=== PATIENT | female | born 1945 | race Caucasian/White ===

== ENCOUNTER 2017-03-17 01:27 | Inpatient (IN) | payer MEDICARE, OTHER ==
[~2017-03-17] VITALS: Ht 149.9 cm; Wt 49.0 kg
[2017-03-17] MEDS ORDERED: diphenhydrAMINE HCL 25 MG CAPSULE PO PRN (07:45)
[2017-03-17] MEDS ORDERED: MAG HYDROX/AL HYDROX/SIMETH 30 ML ORAL.SUSP PO PRN (09:15)
[2017-03-17] MEDS ORDERED: METHYL SALICYLATE/MENTHOL TOPICAL OINTMENT 29GM TUBE. TP PRN (09:15)
--- NOTE | 2017-03-17 11:35 | EKG ---
[address] [address] Test Date: 2017-03-17 Test Time: 11:30:34 Pat Name: EUGENIE OCHOA Department: Room: [address] [place] [address] Gender: F Specimen Boss: : 1945 Requested By: AMARJIT RICH Order Number: [id number] Reading MD: Hugh Mccoy Measurements Intervals [place] Rate: 77 P: 59 [place]: 156 QRS: -20 QRSD: 78 T: 59 QT: 404 QTc: 459 Interpretive Statements SINUS RHYTHM Electronically Signed On 03-27-2017 10:20:33 CDT by Hugh Mccoy
--- NOTE | 2017-03-17 11:37 | PDOC ---
Exam Sourav Demential Exam: Sourav Note: Please also refer to the separate dictated note~for this date of service dictated separately.~Patient seen individually. Discussed the patient with Nursing staff reviewed the chart.~Reviewed interim history and current functioning. Reviewed vital signs,~Labs/ Radiology~and current medications noted below. Continue current treatment with the changes noted in the dictated addendum note Assessment: I&O Intake and Output 03/18/17 07:00 Intake Total 0 ml Balance 0 ml Intake Oral 0 ml Labs: Laboratory Tests Test 03/17/17 09:22 Magnesium Level 1.7 mg/dL (1.8-2.4) L Current Medications: Meds: Current Medications Olanzapine (ZyPREXA ZYDIS) 2.5 mg PRN Q2HR PRN PO PSYCHOSIS Last administered on 03/17/17t 07:58; Start 03/17/17 at 07:45 Diphenhydramine HCl (Benadryl) 50 mg PRN Q6HRS PRN PO ANXIETY/AGITATION; Start 03/17/17 at 07:45 Acetaminophen (Tylenol) 650 mg PRN Q6HRS PRN PO PAIN / TEMP; Start 03/17/17 at 09:15 Multi-Ingredient Ointment (Analgesic [place]) 1 gayle PRN QID PRN TP MUSCLE PAIN; Start 03/17/17 at 09:15 Al Hydroxide/Mg Hydroxide (Mylanta Plus Xs) 15 ml PRN AFTMEALHC PRN PO DYSPEPSIA; Start 03/17/17 at 09:15 Magnesium Hydroxide (Milk Of Magnesia) 2,400 mg PRN QHS PRN PO CONSTIPATION; Start 03/17/17 at 09:15 Diagnosis: Problems: (1) Anxiety disorder (2) Dementia in Alzheimer's disease with delusions (3) Dementia in Alzheimer's disease with depression (4) Dementia, vascular, with delusions (5) Dementia, vascular, with depression (6) Impulse control disorder AAMRJIT RICH MD Mar 17, 2017 11:37
[2017-03-17] MEDS ORDERED: CYAN10005 PO (13:20)
[2017-03-17] MEDS ORDERED: QUET25TA5 PO (13:20)
[2017-03-17] MEDS ORDERED: ESTR1PAT10 TP (13:20)
[2017-03-17] MEDS ORDERED: ACYC-63 PO (13:20)
[2017-03-17] MEDS ORDERED: CA C1TAB63 PO (13:20)
[2017-03-17] MEDS ORDERED: POLY17PO5 PO (13:20)
[2017-03-17] MEDS ORDERED: FOLI1TAB16 PO (13:20)
[2017-03-17] MEDS ORDERED: ATOR40TA PO (13:20)
[2017-03-17] MEDS ORDERED: BRIM5DRO2 OU (13:20)
[2017-03-17] MEDS ORDERED: CYCL1DRO EACHEYE (13:20)
[2017-03-17] MEDS ORDERED: LEVO50TA PO (13:20)
[2017-03-17] MEDS ORDERED: ALEN70TA5 PO (13:20)
[2017-03-17] MEDS ORDERED: LATA2.5D2 EACHEYE (13:20)
[2017-03-17] MEDS ORDERED: BUPR300T3 PO (13:20)
[2017-03-17] MEDS ORDERED: CA C1TAB67 PO (13:20)
[2017-03-17] MEDS ORDERED: MECL12.52 PO (13:20)
[2017-03-17] MEDS ORDERED: MEMA10TA PO (13:20)
[2017-03-17] MEDS ORDERED: POLYETHYLENE GLYCOL 3350 17 GM PACKET. PO PRN (14:30)
[2017-03-17] MEDS ORDERED: ACYCLOVIR 200 MG CAPSULE PO PRN (14:30)
[2017-03-17] MEDS ORDERED: QUEtiapine 25 MG TABLET. PO PRN (14:30)
[2017-03-17] MEDS ORDERED: MECLIZINE 12.5 MG TABLET. PO PRN (14:30)
[2017-03-17 16:21] VITALS: BP 129/71
[2017-03-17] MEDS: CALCIUM CARB/VIT D3 500/200 TABLET PO SCH (16:35)
--- NOTE | 2017-03-17 16:44 | RAD ---
Bilateral hips 2 views each with AP pelvis 03/17/2017 HISTORY: Pain after falling. Views of both hips show normal bone density without apparent fracture or dislocation. AP view of the pelvis shows no fracture or dislocation. Joint spaces appear well-maintained for age. IMPRESSION: No evidence of acute abnormality. Electronically signed by: Micah Thomas Jr., MD (03/17/2017 4:41 PM) [facility] [place]
[2017-03-17 16:56] LABS: THYROID STIM HORMONE (TSH) 2.79 uIU/mL (0.358-3.740)
[2017-03-17 18:07] LABS: HEMOGLOBIN A1C 4.7 % (4.8-5.6); T3 TOTAL 94 ng/dL (71-180); THYROXINE 7.6 ug/dL (4.5-12.0)
[2017-03-17] MEDS: LATANOPROST 0.005% OPHTH SOLUTION 2.5ML BOTTLE. OU SCH (19:53)
[2017-03-17] MEDS: ATORVASTATIN CALCIUM 20 MG TABLET PO SCH (19:53)
[2017-03-17] MEDS: BRIMONIDINE 0.2% OPHTH SOLUTION 5ML BOTTLE. OU SCH (19:53)
[2017-03-17] MEDS: cycloSPORINE 0.05% OPTH 1 DROP DROPERETTE OU SCH (19:53)
[2017-03-17] MEDS: TIMOLOL 0.5% OPHTH SOLUTION 5ML BOTTLE. OU SCH (19:53)
[2017-03-17] MEDS: MEMANTINE 10 MG TABLET. PO SCH (19:53)
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
--- NOTE | 2017-03-17 21:59 | PDOC ---
Exam Sourav Demential Exam: Sourav Note: Please also refer to the separate dictated note~for this date of service dictated separately.~Patient seen individually. Discussed the patient with Nursing staff reviewed the chart.~Reviewed interim history and current functioning. Reviewed vital signs,~Labs/ Radiology~and current medications noted below. Continue current treatment with the changes noted in the dictated addendum note Assessment: Vital Signs: Vital Signs Date Time Temp Pulse Resp B/P (MAP) Pulse Ox O2 Delivery O2 Flow Rate FiO2 03/17/17 16:21 97.8 101 18 129/71 (90) 96 I&O Intake and Output 03/18/17 07:00 Intake Total 240 ml Balance 240 ml Intake Oral 240 ml Labs: Laboratory Tests Test 03/17/17 09:22 Hemoglobin A1c 4.7 % (4.8-5.6) L Magnesium Level 1.7 mg/dL (1.8-2.4) L Iron Level 52 ug/dL (50-170) Total Iron Binding Capacity 259 ug/dL (250-450) Iron Saturation 20 % (15-34) Triglycerides Level 104 mg/dL (0-150) Cholesterol Level 135 mg/dL (0-200) LDL Cholesterol, Calculated 49 mg/dL (0-100) VLDL Cholesterol, Calculated 20 mg/dL (0-40) Non-HDL Cholesterol Calculated 69 mg/dL (0-129) HDL Cholesterol 66 mg/dL (40-60) H Cholesterol/HDL Ratio 2.0 25-Hydroxy Vitamin D Total Pending Thyroid Stimulating Hormone (TSH) 2.790 uIU/mL (0.358-3.740) Thyroxine (T4) 7.6 ug/dL (4.5-12.0) Total Triiodothyronine (TT3) 94 ng/dL (71-180) RPR Titer Additional Testing Pending Current Medications: Meds: Current Medications Olanzapine (ZyPREXA ZYDIS) 2.5 mg PRN Q2HR PRN PO PSYCHOSIS Last administered on 03/17/17t 16:51; Start 03/17/17 at 07:45 Diphenhydramine HCl (Benadryl) 50 mg PRN Q6HRS PRN PO ANXIETY/AGITATION; Start 03/17/17 at 07:45; Stop 03/17/17 at 18:21; Status DC Acetaminophen (Tylenol) 650 mg PRN Q6HRS PRN PO PAIN / TEMP; Start 03/17/17 at 09:15 Multi-Ingredient Ointment (Analgesic [place]) 1 gayle PRN QID PRN TP MUSCLE PAIN; Start 03/17/17 at 09:15 Al Hydroxide/Mg Hydroxide (Mylanta Plus Xs) 15 ml PRN AFTMEALHC PRN PO DYSPEPSIA; Start 03/17/17 at 09:15 Magnesium Hydroxide (Milk Of Magnesia) 2,400 mg PRN QHS PRN PO CONSTIPATION; Start 03/17/17 at 09:15 Influenza Virus Vaccine Quadrival (Fluarix Quad [id number] Syringe) 0.5 ml ONCE ONCE VAX IM ; Start 03/18/17 at 09:00; Stop 03/18/17 at 09:01 Acyclovir (Zovirax) 200 mg PRN BID PRN PO blisters; Start 03/17/17 at 14:30 Alendronate Sodium (Fosamax) 70 mg WEEKLY PO ; Start 03/24/17 at 09:00 Cyanocobalamin (Vitamin B-12) 1,000 mcg DAILY PO ; Start 03/18/17 at 09:00 Cyclosporine (Restasis) 1 drop BID OU Last administered on 03/17/17 19:53; Start 03/17/17 at 21:00 Folic Acid (Folic Acid) 1 mg DAILY PO ; Start 03/18/17 at 09:00 Latanoprost (Xalatan) 1 drop QHS OU Last administered on 03/17/17 19:53; Start 03/17/17 at 21:00 Levothyroxine Sodium (Synthroid) 50 mcg DAILY06 PO ; Start 03/18/17 at 06:00 Meclizine HCl (Antivert) 12.5 mg PRN TID PRN PO DIZZINESS; Start 03/17/17 at 14:30 Polyethylene Glycol (miraLAX) 17 gm PRN DAILY PRN PO CONSTIPATION; Start 03/17 at 14:30 Atorvastatin Calcium (Lipitor) 40 mg QHS PO Last administered on 03/17/17 19: 53; Start 03/17/17 at 21:00 Brimonidine Tartrate (Alphagan) 1 drop BID OU Last administered on 03/17/17 19:53; Start 03/17/17 at 21:00 Non-Formulary Medication 1 each DAILY PO ; Start 03/18/17 at 09:00; Stop 03/18 at 09:00; Status DC Calcium/Vitamin D (Oscal D 500mg/ 200uts) 1 tab BIDWMEALS PO ; Start 03/17/17 at 17:00 Non-Formulary Medication 1 patch TWICE WEEKLY TP ; Start 03/17/17 at 14:30; Status UNV Bupropion HCl (Wellbutrin Xl) 300 mg DAILY PO ; Start 03/18/17 at 09:00 Memantine (Namenda) 10 mg BID PO Last administered on 03/17/17t 19:53; Start 03/17/17 at 21:00 Quetiapine Fumarate (SEROquel) 12.5 mg PRN DAILY PRN PO ANXIETY / AGITATION; Start 03/17/17 at 14:30 Timolol Maleate (Timoptic 0.5% Ophth) 1 drop BID OU Last administered on t 19:53; Start 03/17/17 at 21:00 Active Scripts Active Reported Seroquel (Quetiapine Fumarate) 25 Mg Tablet 0.5 Tab PO DAILY PRN Miralax (Polyethylene Glycol 3350) 17 Gm Powd.pack 1 Packet PO DAILY PRN Namenda (Memantine Hcl) 10 Mg Tablet 1 Tab PO BID Meclizine Hcl 12.5 Mg Tablet 1 Tab PO TID PRN Synthroid (Levothyroxine Sodium) 50 Mcg Tablet 1 Tab PO DAILY06 Xalatan (Latanoprost) 2.5 Ml Drops 1 Drop EACHEYE QHS Folic Acid 1 Mg Tablet 1 Tab PO DAILY Vivelle-Dot (Estradiol) 1 Each Patch.tdsw 1 Patch TP TWICE WEEKLY Restasis (Cyclosporine) 1 Each Droperette 1 Drop EACHEYE BID Vitamin B-12 (Cyanocobalamin (Vitamin B-12)) 1,000 Mcg Tablet 1 Tab PO DAILY Viactiv Soft Chew Tablet (Ca Carbonate/Vitamin D3/Vit K) 1 Each Tab.chew 1 Each PO DAILY Caltrate+D3 Plus Mineral Minis (Ca Carb/D3/Mag Ox/Skein Straightener/Aaron/Zn) 1 Each Tablet 1 Each PO DAILY Wellbutrin Xl (Bupropion Hcl) 300 Mg Tab.er.24h 1 Tab PO DAILY Combigan Eye Drops (Brimonidine Tartrate/Timolol) 5 Ml Drops 1 Drop OU BID Lipitor (Atorvastatin Calcium) 40 Mg Tablet 1 Tab PO DAILY Alendronate Sodium 70 Mg Tablet 1 Tab PO WEEKLY Acyclovir 200 Mg Capsule 1 Cap PO BID PRN Diagnosis: Problems: (1) Anxiety disorder (2) Impulse control disorder (3) Dementia, vascular, with depression (4) Dementia, vascular, with delusions (5) Dementia in Alzheimer's disease with depression (6) Dementia in Alzheimer's disease with delusions AMARJIT RICH MD Mar 17, 2017 21:59
[2017-03-18] MEDS: LEVOTHYROXINE 50 MCG TABLET PO SCH (05:55)
[2017-03-18 06:05] VITALS: BP 101/70
[2017-03-18] MEDS: CALCIUM CARB/VIT D3 500/200 TABLET PO SCH ×2 (08:00→17:00)
[2017-03-18] MEDS: TIMOLOL 0.5% OPHTH SOLUTION 5ML BOTTLE. OU SCH ×2 (09:00→19:32)
[2017-03-18] MEDS: BRIMONIDINE 0.2% OPHTH SOLUTION 5ML BOTTLE. OU SCH ×2 (09:00→19:32)
[2017-03-18] MEDS: cycloSPORINE 0.05% OPTH 1 DROP DROPERETTE OU SCH ×2 (09:00→19:32)
[2017-03-18] MEDS: FOLIC ACID 1 MG TABLET PO SCH (09:00)
[2017-03-18] MEDS: CYANOCOBALAMIN (VITAMIN B-12) 1,000 MCG TABLET. PO SCH (09:00)
[2017-03-18] MEDS ORDERED: [UNRECOGNIZED DRUG - OTHER] PO SCH (09:00)
[2017-03-18] MEDS ORDERED: FLU VACC QS2017-18 (36MOS+)/PF 0.5 ML SYRINGE. VAX IM ONE (09:00)
[2017-03-18] MEDS: MEMANTINE 10 MG TABLET. PO SCH ×3 (11:50→19:32)
[2017-03-18] MEDS: buPROPion XL 300 MG TAB.ER.24H. PO SCH ×2 (11:50→16:53)
[2017-03-18 16:10] VITALS: BP 118/69
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
[2017-03-18] MEDS: ATORVASTATIN CALCIUM 20 MG TABLET PO SCH (19:31)
[2017-03-18] MEDS: LATANOPROST 0.005% OPHTH SOLUTION 2.5ML BOTTLE. OU SCH (19:32)
[2017-03-19] MEDS: LEVOTHYROXINE 50 MCG TABLET PO SCH (05:47)
[2017-03-19 06:09] VITALS: BP 152/106
[2017-03-19 06:15] VITALS: BP 120/71
[2017-03-19] MEDS: CALCIUM CARB/VIT D3 500/200 TABLET PO SCH ×3 (08:00→17:10)
[2017-03-19] MEDS: cycloSPORINE 0.05% OPTH 1 DROP DROPERETTE OU SCH ×2 (08:02→20:03)
[2017-03-19] MEDS: buPROPion XL 300 MG TAB.ER.24H. PO SCH (08:03)
[2017-03-19] MEDS: MEMANTINE 10 MG TABLET. PO SCH ×2 (08:03→20:03)
[2017-03-19] MEDS: CYANOCOBALAMIN (VITAMIN B-12) 1,000 MCG TABLET. PO SCH (08:03)
[2017-03-19] MEDS: FOLIC ACID 1 MG TABLET PO SCH (08:03)
[2017-03-19] MEDS: TIMOLOL 0.5% OPHTH SOLUTION 5ML BOTTLE. OU SCH ×2 (08:04→20:06)
[2017-03-19] MEDS: BRIMONIDINE 0.2% OPHTH SOLUTION 5ML BOTTLE. OU SCH ×2 (08:04→20:06)
[2017-03-19 16:13] VITALS: BP 136/88
[2017-03-19] MEDS: ATORVASTATIN CALCIUM 20 MG TABLET PO SCH (20:03)
[2017-03-19] MEDS: DIVALPROEX 125 MG CAP.SPRINK PO SCH (20:04)
[2017-03-19] MEDS: LATANOPROST 0.005% OPHTH SOLUTION 2.5ML BOTTLE. OU SCH (20:06)
--- NOTE | 2017-03-20 02:08 | PN ---
DATE: 03/19/2017 SUBJECTIVE: The patient was seen today, met with the staff, chart reviewed, and covering for Dr. So. Staff reports increased behavioral problems, exit-seeking behaviors, kicking doors . The patient also admits to worrying about everything, raising thoughts. The patient is also hyperactive and restless. OBSERVATION: VITAL SIGNS: Temperature 97.3, blood pressure 152/106, pulse 91, respirations 18, O2 sat 96%. Slept about 7 hours last night. Staff reports no falls. Her appetite fair. MEDICATIONS: The patient's current medications include Wellbutrin 150 mg daily, Depakote 125 mg b.i.d., Namenda 10 mg b.i.d., Seroquel 12.5 mg p.r.n., also olanzapine 2.5 mg q.2 hours p.r.n. The patient currently not having any other physical complaints. ASSESSMENT: AXIS I: 1. Major neurocognitive disorder, most likely Alzheimer's and vascular with depression and delusions and behavioral disturbances. 2. Anxiety disorder. PLAN: The patient's Wellbutrin was decreased from 300 to 150 mg daily. NOAH COUCH MD DR: BOB/deidra JOB#: [id number] / [id number]
[2017-03-20] MEDS: LEVOTHYROXINE 50 MCG TABLET PO SCH (06:28)
[2017-03-20 06:37] VITALS: BP 118/64
[2017-03-20 08:00] LABS: BASO # 0.1 x10^3/uL (0.0-0.2); BASO % 0 % (0-3); EOS % 0 % (0-3); HEMATOCRIT 42.5 % (36.0-47.0); HEMOGLOBIN 14.1 g/dL (12.0-15.5); LYMPH # 0.6 x10^3/uL (1.0-4.8); LYMPH % 4 % (24-48); MEAN CORPUSCULAR HEMOGLOBIN 30 pg (25-35); MEAN CORPUSCULAR HGB CONC 33 g/dL (31-37); MEAN CORPUSCULAR VOLUME 91 fL (79-100); MONO # 0.9 x10^3/uL (0.0-1.1); MONO % 6 % (0-9); NEUT # 13.3 x10^3uL (1.8-7.7); NEUT % 89 % (31-73); PLATELET COUNT 195 x10^3/uL (140-400); RED BLOOD COUNT 4.67 x10^6/uL (3.50-5.40); RED CELL DISTRIBUTION WIDTH 14.3 % (11.5-14.5); WHITE BLOOD COUNT 14.9 x10^3/uL (4.0-11.0)
[2017-03-20] MEDS: CALCIUM CARB/VIT D3 500/200 TABLET PO SCH ×2 (08:50→16:54)
[2017-03-20] MEDS: cycloSPORINE 0.05% OPTH 1 DROP DROPERETTE OU SCH ×2 (11:30→19:27)
[2017-03-20] MEDS: FOLIC ACID 1 MG TABLET PO SCH (11:30)
[2017-03-20] MEDS: CYANOCOBALAMIN (VITAMIN B-12) 1,000 MCG TABLET. PO SCH (11:30)
[2017-03-20] MEDS: DIVALPROEX 125 MG CAP.SPRINK PO SCH ×2 (11:30→19:28)
[2017-03-20] MEDS: MEMANTINE 10 MG TABLET. PO SCH ×2 (11:30→19:28)
[2017-03-20] MEDS: TIMOLOL 0.5% OPHTH SOLUTION 5ML BOTTLE. OU SCH ×2 (11:32→19:27)
[2017-03-20] MEDS: BRIMONIDINE 0.2% OPHTH SOLUTION 5ML BOTTLE. OU SCH ×2 (11:32→19:27)
[2017-03-20] MEDS: buPROPion XL 150 MG TAB.ER.24H PO SCH (11:32)
[2017-03-20] MEDS ORDERED: VIVELLE DOT TP SCH (15:00)
[2017-03-20 15:31] VITALS: BP 98/63
[2017-03-20] MEDS: LATANOPROST 0.005% OPHTH SOLUTION 2.5ML BOTTLE. OU SCH (19:27)
[2017-03-20] MEDS: ATORVASTATIN CALCIUM 20 MG TABLET PO SCH (19:28)
--- NOTE | 2017-03-21 01:51 | PN ---
DATE: 03/20/2017 SUBJECTIVE: The patient was seen today, met with the staff, chart reviewed. The patient continues to have problems, mood swings, angry outbursts. The patient also delusional, having visual hallucination seeing children. The patient is being combative with the staff before. The patient also hyperactive, restless, pacing. OBJECTIVE: VITAL SIGNS: Temperature 97.9, blood pressure 118/64, pulse 74, respirations 18, O2 sat 99%. Slept about 4 hours last night. The patient's medications reviewed. The patient currently on Wellbutrin 150 mg daily, Depakote Sprinkles 125 mg b.i.d., Namenda 10 mg b.i.d., Seroquel 12.5 mg p.r.n. daily, also Zyprexa Zydis 2.5 mg p.r.n. q. 2 hours. The patient did not have any falls since she has been here. The patient apparently has shown some improvement. Staff thinks she is able to recognize her and able to recall few things from the past. The patient apparently slept about maybe having a concussion when she had a fall. ASSESSMENT: 1. Major neurocognitive disorder, most likely Alzheimer's and vascular with depression and delusions and behavioral disturbances. 2. Anxiety disorder, unspecified. PLAN: To continue with the treatment. NOAH COUCH MD DR: BOB/deidra JOB#: [id number] / [id number]
[2017-03-21] MEDS: LEVOTHYROXINE 50 MCG TABLET PO SCH (06:04)
[2017-03-21 06:06] VITALS: BP 108/66
[2017-03-21 07:02] LABS: HEMATOCRIT 40.3 % (36.0-47.0); HEMOGLOBIN 13.6 g/dL (12.0-15.5); RED BLOOD COUNT 4.47 x10^6/uL (3.50-5.40); RED CELL DISTRIBUTION WIDTH 14.2 % (11.5-14.5); WHITE BLOOD COUNT 11.9 x10^3/uL (4.0-11.0)
[2017-03-21 07:28] LABS: ALBUMIN 3.4 g/dL (3.4-5.0); ALBUMIN/GLOBULIN RATIO 1.1 (1.0-1.7); C REACTIVE PROTEIN 65.9 mg/L (0-3.3); CREATININE 1.1 mg/dL (0.6-1.0); GFR 48.8; TOTAL BILIRUBIN 0.8 mg/dL (0.2-1.0); TOTAL PROTEIN 6.4 g/dL (6.4-8.2)
[2017-03-21 07:33] LABS: POTASSIUM 2.9 mmol/L (3.5-5.1)
[2017-03-21] MEDS ORDERED: POTASSIUM CHLORIDE 20 MEQ TABLET.ER. PO ONE ×3 (08:15→10:00)
[2017-03-21] MEDS: cycloSPORINE 0.05% OPTH 1 DROP DROPERETTE OU SCH ×2 (09:16→19:10)
[2017-03-21] MEDS: CALCIUM CARB/VIT D3 500/200 TABLET PO SCH ×2 (09:17→16:35)
[2017-03-21] MEDS: FOLIC ACID 1 MG TABLET PO SCH (09:17)
[2017-03-21] MEDS: DIVALPROEX 125 MG CAP.SPRINK PO SCH ×2 (09:17→19:11)
[2017-03-21] MEDS: buPROPion XL 150 MG TAB.ER.24H PO SCH (09:17)
[2017-03-21] MEDS: MEMANTINE 10 MG TABLET. PO SCH ×2 (09:17→19:11)
[2017-03-21] MEDS: CYANOCOBALAMIN (VITAMIN B-12) 1,000 MCG TABLET. PO SCH (09:17)
[2017-03-21] MEDS: BRIMONIDINE 0.2% OPHTH SOLUTION 5ML BOTTLE. OU SCH ×2 (09:18→19:10)
[2017-03-21] MEDS: TIMOLOL 0.5% OPHTH SOLUTION 5ML BOTTLE. OU SCH ×2 (09:18→19:10)
[2017-03-21] MEDS: LATANOPROST 0.005% OPHTH SOLUTION 2.5ML BOTTLE. OU SCH ×2 (09:18→19:10)
--- NOTE | 2017-03-21 12:07 | RAD ---
Chest, 2 views, 03/21/2017: History: Leukocytosis A left-sided transvenous pacemaker is in place with 2 leads extending into the right heart. The heart size and pulmonary vascularity are normal. No pulmonary infiltrates are seen. There is no evidence of pleural fluid. Minimal spurring is present in the spine. IMPRESSION: No acute cardiopulmonary abnormality is detected.
[2017-03-21 16:15] VITALS: BP 127/84
[2017-03-21] MEDS: ATORVASTATIN CALCIUM 20 MG TABLET PO SCH (19:11)
[2017-03-21] MEDS: POTASSIUM CHLORIDE 20 MEQ TABLET.ER. PO SCH (21:12)
[2017-03-22 00:44] LABS: BACTERIA,URINE FEW /HPF (0-FEW); BILIRUBIN,URINE NEG (NEG); CLARITY,URINE CLOUDY; COLOR,URINE YELLOW; GLUCOSE,URINE NEG (NEG); NITRITE,URINE NEG (NEG); RBC,URINE 0 /HPF (0-2); SQUAMOUS EPITHELIAL CELL,UR OCC /LPF; UROBILINOGEN,URINE 0.2 mg/dL (0.2 mg/dL); WBC,URINE RARE /HPF (0-4)
[2017-03-22 00:45] LABS: AMORPHOUS SEDIMENT,UR PRESENT /HPF
--- NOTE | 2017-03-22 04:02 | PN ---
DATE: 03/21/2017 SUBJECTIVE: The patient was seen today, met with the staff, chart reviewed. She continues to be anxious with periods of agitation. The patient has not shown any major behavior problems. The patient is still difficult to redirect at times. The patient did not exhibit any combative behaviors. OBSERVATION: VITAL SIGNS: Temperature 97.6, blood pressure 108/66, pulse 75, respirations 14, O2 sat 100%. Slept about 7 hours last night. Her appetite improved. MEDICATIONS: The patient's current medications include bupropion 150 mg daily, Depakote 125 mg b.i.d., Namenda 10 mg b.i.d., Seroquel 12.5 mg daily p.r.n. Also, olanzapine 2.5 mg q 2 hours p.r.n. The patient is not having any side effects to the medications. ASSESSMENT: 1. Major neurocognitive disorder, most likely Alzheimer's and vascular with depression and delusions and behavioral disturbances. 2. Anxiety disorder, unspecified. PLAN: Continue with the treatment. Plan for discharge on 03/23/2017 if she continues to show improvement and she will be going to [facility]. NOAH COUCH MD DR: BOB/deidra JOB#: [id number] / [id number]
[2017-03-22] MEDS: LEVOTHYROXINE 50 MCG TABLET PO SCH (05:19)
[2017-03-22 05:58] VITALS: BP 145/85
[2017-03-22] MEDS: FOLIC ACID 1 MG TABLET PO SCH (07:20)
[2017-03-22] MEDS: DIVALPROEX 125 MG CAP.SPRINK PO SCH (07:20)
[2017-03-22] MEDS: buPROPion XL 150 MG TAB.ER.24H PO SCH (07:20)
[2017-03-22] MEDS: CALCIUM CARB/VIT D3 500/200 TABLET PO SCH ×2 (07:21→16:16)
[2017-03-22] MEDS: MEMANTINE 10 MG TABLET. PO SCH ×2 (07:21→19:17)
[2017-03-22] MEDS: POTASSIUM CHLORIDE 20 MEQ TABLET.ER. PO SCH ×3 (07:21→19:17)
[2017-03-22] MEDS: CYANOCOBALAMIN (VITAMIN B-12) 1,000 MCG TABLET. PO SCH (07:21)
[2017-03-22] MEDS: BRIMONIDINE 0.2% OPHTH SOLUTION 5ML BOTTLE. OU SCH ×2 (07:21→19:22)
[2017-03-22] MEDS: TIMOLOL 0.5% OPHTH SOLUTION 5ML BOTTLE. OU SCH ×2 (07:22→19:21)
[2017-03-22] MEDS: cycloSPORINE 0.05% OPTH 1 DROP DROPERETTE OU SCH ×2 (07:24→19:23)
[2017-03-22 09:53] LABS: VAL ACID 61 mcg/mL (50-100)
[2017-03-22 15:34] VITALS: BP 120/71
[2017-03-22 15:51] LABS: ALBUMIN 3.7 g/dL (3.4-5.0); ALBUMIN/GLOBULIN RATIO 1.1 (1.0-1.7); CREATININE 1.1 mg/dL (0.6-1.0); GFR 48.8; TOTAL BILIRUBIN 0.7 mg/dL (0.2-1.0); TOTAL PROTEIN 7.1 g/dL (6.4-8.2)
[2017-03-22] MEDS: ATORVASTATIN CALCIUM 20 MG TABLET PO SCH (19:16)
[2017-03-22] MEDS: LATANOPROST 0.005% OPHTH SOLUTION 2.5ML BOTTLE. OU SCH (19:24)
[2017-03-22] MEDS ORDERED: DIVALPROEX 125 MG CAP.SPRINK PO SCH (21:00)
[2017-03-23] MEDS: LEVOTHYROXINE 50 MCG TABLET PO SCH (05:20)
[2017-03-23 06:08] VITALS: BP 113/73
[2017-03-23 06:49] LABS: VAL ACID 64 mcg/mL (50-100)
[2017-03-23] MEDS: buPROPion XL 150 MG TAB.ER.24H PO SCH (07:50)
[2017-03-23] MEDS: MEMANTINE 10 MG TABLET. PO SCH ×2 (07:50→19:24)
[2017-03-23] MEDS: CALCIUM CARB/VIT D3 500/200 TABLET PO SCH ×2 (07:50→17:00)
[2017-03-23] MEDS: POTASSIUM CHLORIDE 20 MEQ TABLET.ER. PO SCH ×3 (07:50→19:24)
[2017-03-23] MEDS: CYANOCOBALAMIN (VITAMIN B-12) 1,000 MCG TABLET. PO SCH (07:51)
[2017-03-23] MEDS: FOLIC ACID 1 MG TABLET PO SCH (07:51)
[2017-03-23] MEDS: TIMOLOL 0.5% OPHTH SOLUTION 5ML BOTTLE. OU SCH ×2 (07:52→19:25)
[2017-03-23] MEDS: BRIMONIDINE 0.2% OPHTH SOLUTION 5ML BOTTLE. OU SCH ×2 (07:53→19:25)
[2017-03-23] MEDS: cycloSPORINE 0.05% OPTH 1 DROP DROPERETTE OU SCH ×2 (07:54→19:25)
--- NOTE | 2017-03-23 08:20 | PN ---
DATE: 03/22/2017 SUBJECTIVE: Discussed the patient's diagnosis, treatment behaviors and discharge plans in the treatment review conference. The patient continues to show increased agitation, exit seeking behaviors, kicking doors, and also hallucinating at times. Also discussed with the family on the phone with regard to the patient's progress and plans. OBJECTIVE: VITAL SIGNS: Temperature 97.8, blood pressure 144/82, pulse 61, respirations 16, O2 sat 100%. The patient slept about 7 hours last night. CURRENT MEDICATIONS: The patient's current medications include bupropion 150 mg daily, Depakote 125 mg b.i.d., Namenda 10 mg b.i.d., Seroquel 12.5 mg daily p.r.n. She is also on olanzapine 2.5 mg q. 2 hours p.r.n. The patient denies of any side effects to the medications. ASSESSMENT: 1. Major neurocognitive disorder, mostly likely Alzheimer's and vascular with the depression and delusions and behavioral disturbances. 2. Anxiety disorder, unspecified. PLAN: Discussed the medications with the family and they are comfortable. The patient is staying on the medications and also Depakote increased to 125 mg in the morning and 250 at night. The patient will be also on Zyprexa 5 mg at noon and continue on the p.r.n. Zyprexa. The patient had no falls. To continue with the treatment. As stated above, the patient will be on Zyprexa 5 mg at noon and the Depakote was increased. NOAH COUCH MD DR: BOB/deidra JOB#: [id number] / [id number]
[2017-03-23] MEDS ORDERED: OLANZapine 5 MG TABLET PO SCH (09:00)
[2017-03-23] MEDS ORDERED: DIVALPROEX 125 MG CAP.SPRINK PO SCH (09:00)
[2017-03-23] MEDS: OLANZapine 5 MG TABLET PO SCH (13:17)
[2017-03-23 16:36] VITALS: BP 104/64
[2017-03-23] MEDS: ATORVASTATIN CALCIUM 20 MG TABLET PO SCH (19:24)
[2017-03-23] MEDS: LATANOPROST 0.005% OPHTH SOLUTION 2.5ML BOTTLE. OU SCH (19:25)
[2017-03-23] MEDS: DIVALPROEX 125 MG CAP.SPRINK PO SCH (19:31)
[2017-03-23] MEDS: ACETAMINOPHEN 325 MG TABLET PO PRN (21:12)
[2017-03-24 05:59] VITALS: BP 107/69
[2017-03-24] MEDS ORDERED: ALENDRONATE SODIUM 35 MG TABLET PO SCH (07:00)
[2017-03-24] MEDS: LEVOTHYROXINE 50 MCG TABLET PO SCH (08:59)
[2017-03-24] MEDS: CALCIUM CARB/VIT D3 500/200 TABLET PO SCH ×2 (09:00→15:36)
[2017-03-24] MEDS: DIVALPROEX 125 MG CAP.SPRINK PO SCH ×2 (09:00→19:13)
[2017-03-24] MEDS: FOLIC ACID 1 MG TABLET PO SCH (09:00)
[2017-03-24] MEDS ORDERED: ALENDRONATE SODIUM 70 MG TABLET PO SCH (09:00)
[2017-03-24] MEDS: buPROPion XL 150 MG TAB.ER.24H PO SCH (09:01)
[2017-03-24] MEDS: CYANOCOBALAMIN (VITAMIN B-12) 1,000 MCG TABLET. PO SCH (09:01)
[2017-03-24] MEDS: POTASSIUM CHLORIDE 20 MEQ TABLET.ER. PO SCH ×3 (09:01→19:13)
[2017-03-24] MEDS: MEMANTINE 10 MG TABLET. PO SCH ×2 (09:01→19:13)
[2017-03-24] MEDS: BRIMONIDINE 0.2% OPHTH SOLUTION 5ML BOTTLE. OU SCH ×2 (09:04→19:15)
[2017-03-24] MEDS: TIMOLOL 0.5% OPHTH SOLUTION 5ML BOTTLE. OU SCH ×2 (09:04→19:15)
[2017-03-24] MEDS: cycloSPORINE 0.05% OPTH 1 DROP DROPERETTE OU SCH ×2 (10:12→19:12)
--- NOTE | 2017-03-24 11:31 | PN ---
DATE: 03/23/2017 SUBJECTIVE: The patient was seen today, met with the staff, chart reviewed. The patient continues to pace constantly, increased agitation, gets aggressive sometimes. The patient also talking to herself. The patient reports the patient may be hallucinating. The patient did not have any falls. VITAL SIGNS: Stable. The patient's appetite is fair, sleep average. MEDICATIONS: The patient's current medications include Depakote 250 mg b.i.d., olanzapine 5 mg daily, bupropion 150 mg daily, Namenda 10 mg b.i.d. The patient is also on Seroquel p.r.n. The patient is not having any physical complaints. ASSESSMENT: 1. Major neurocognitive disorder, most likely Alzheimer's and vascular with depression and delusions and behavioral disturbances. 2. Anxiety disorder, unspecified. The patient's Depakote was increased to 250 mg b.i.d. p.o. Continue with the treatment. NOAH COUCH MD DR: BOB/deidra JOB#: [id number] / [id number]
[2017-03-24] MEDS: OLANZapine 5 MG TABLET PO SCH (12:00)
[2017-03-24 15:55] VITALS: BP 98/67
[2017-03-24] MEDS: ATORVASTATIN CALCIUM 20 MG TABLET PO SCH (19:13)
[2017-03-24] MEDS: LATANOPROST 0.005% OPHTH SOLUTION 2.5ML BOTTLE. OU SCH (19:15)
--- NOTE | 2017-03-25 02:41 | PN ---
DATE: 03/24/2017 SUBJECTIVE: The patient was seen today, met with the staff, chart reviewed. The patient's behavior remains the same, continues to be delusional, paranoid, sometimes difficult to redirect. OBSERVATION: VITAL SIGNS: Temperature 97.3, blood pressure 107/69, pulse 68, respirations 14, O2 sat 99%. Slept about 7 hours last night. The patient's appetite improved. The patient is not having any physical complaints. MEDICATIONS: The patient's current medications include Depakote 125 mg daily and 250 at night, and olanzapine 5 mg daily, bupropion 150 mg daily, and Namenda 10 mg daily. The patient is not having any side effects. No major physical complaints. ASSESSMENT: 1. Major neurocognitive disorder, most likely Alzheimer's and vascular with depression and delusions with behavioral disturbances. 2. Anxiety disorder, unspecified. PLAN: The patient's Depakote currently on 250 mg b.i.d. p.o. Zyprexa was increased to 7.5 mg daily, continue with the treatment. NOAH COUCH MD DR: BOB/deidra JOB#: [id number] / [id number]
[2017-03-25] MEDS: LEVOTHYROXINE 50 MCG TABLET PO SCH (05:41)
[2017-03-25 06:01] VITALS: BP 116/77
[2017-03-25] MEDS: POTASSIUM CHLORIDE 20 MEQ TABLET.ER. PO SCH ×3 (09:57→19:16)
[2017-03-25] MEDS: MEMANTINE 10 MG TABLET. PO SCH ×2 (09:57→19:16)
[2017-03-25] MEDS: buPROPion XL 150 MG TAB.ER.24H PO SCH (09:57)
[2017-03-25] MEDS: FOLIC ACID 1 MG TABLET PO SCH (09:57)
[2017-03-25] MEDS: CALCIUM CARB/VIT D3 500/200 TABLET PO SCH ×2 (09:57→16:12)
[2017-03-25] MEDS: CYANOCOBALAMIN (VITAMIN B-12) 1,000 MCG TABLET. PO SCH (09:57)
[2017-03-25] MEDS: DIVALPROEX 125 MG CAP.SPRINK PO SCH ×2 (09:57→19:16)
[2017-03-25] MEDS: TIMOLOL 0.5% OPHTH SOLUTION 5ML BOTTLE. OU SCH ×2 (09:58→19:19)
[2017-03-25] MEDS: BRIMONIDINE 0.2% OPHTH SOLUTION 5ML BOTTLE. OU SCH ×2 (09:58→19:19)
[2017-03-25] MEDS: cycloSPORINE 0.05% OPTH 1 DROP DROPERETTE OU SCH ×2 (09:58→19:17)
[2017-03-25] MEDS: OLANZapine 5 MG TABLET PO SCH (11:33)
[2017-03-25 11:45] VITALS: BP 113/71
[2017-03-25 15:52] VITALS: BP 113/71
[2017-03-25] MEDS: MAGNESIUM HYDROXIDE 2,400 MG/30 ML ORAL.SUSP. PO PRN (16:12)
[2017-03-25 16:48] VITALS: BP 138/97
[2017-03-25] MEDS: ATORVASTATIN CALCIUM 20 MG TABLET PO SCH (19:16)
[2017-03-25] MEDS: LATANOPROST 0.005% OPHTH SOLUTION 2.5ML BOTTLE. OU SCH (19:19)
[2017-03-25] MEDS: ACETAMINOPHEN 325 MG TABLET PO PRN (19:22)
--- NOTE | 2017-03-26 04:53 | PN ---
DATE: 03/25/2017 SUBJECTIVE: The patient was seen today, met with the staff, and chart reviewed. The patient is still somewhat is delusional and paranoid, confused, gets agitated easily. OBSERVATIONS: VITAL SIGNS: Temperature 97.1, blood pressure 116/77, pulse 60, respirations 18, O2 sat 99%. Slept about 8 hours last night. CURRENT MEDICATIONS: Include Depakote 250 mg b.i.d., olanzapine 5 mg daily, bupropion 150 mg daily, Namenda 10 mg b.i.d., and Seroquel 12.5 mg daily p.r.n. The patient is also on Zyprexa 7.5 mg daily. The patient is not having any side effects to the medications. No major physical complaints. ASSESSMENT: 1. Major Neurocognitive disorder, most likely Alzheimer's and vascular with depression, delusions and behavioral disturbances. 2. Anxiety disorder, unspecified. PLAN: To continue with the treatment. NOAH COUCH MD DR: BOB/deidra JOB#: [id number] / [id number]
[2017-03-26] MEDS: LEVOTHYROXINE 50 MCG TABLET PO SCH (05:25)
[2017-03-26 06:27] VITALS: BP 108/73
[2017-03-26] MEDS: cycloSPORINE 0.05% OPTH 1 DROP DROPERETTE OU SCH ×2 (07:50→19:29)
[2017-03-26] MEDS: FOLIC ACID 1 MG TABLET PO SCH (07:50)
[2017-03-26] MEDS: CALCIUM CARB/VIT D3 500/200 TABLET PO SCH ×2 (07:50→17:32)
[2017-03-26] MEDS: CYANOCOBALAMIN (VITAMIN B-12) 1,000 MCG TABLET. PO SCH (07:50)
[2017-03-26] MEDS: MEMANTINE 10 MG TABLET. PO SCH ×2 (07:50→19:29)
[2017-03-26] MEDS: buPROPion XL 150 MG TAB.ER.24H PO SCH (07:50)
[2017-03-26] MEDS: POTASSIUM CHLORIDE 20 MEQ TABLET.ER. PO SCH ×3 (07:50→19:30)
[2017-03-26] MEDS: DIVALPROEX 125 MG CAP.SPRINK PO SCH ×2 (07:51→19:30)
[2017-03-26] MEDS: BRIMONIDINE 0.2% OPHTH SOLUTION 5ML BOTTLE. OU SCH ×2 (07:51→19:29)
[2017-03-26] MEDS: TIMOLOL 0.5% OPHTH SOLUTION 5ML BOTTLE. OU SCH ×2 (07:51→19:29)
[2017-03-26 08:32] LABS: BASO # 0.1 x10^3/uL (0.0-0.2); BASO % 1 % (0-3); EOS # 0.3 x10^3/uL (0.0-0.7); EOS % 3 % (0-3); HEMATOCRIT 41.4 % (36.0-47.0); HEMOGLOBIN 13.9 g/dL (12.0-15.5); LYMPH # 0.9 x10^3/uL (1.0-4.8); LYMPH % 9 % (24-48); MEAN CORPUSCULAR HEMOGLOBIN 30 pg (25-35); MEAN CORPUSCULAR HGB CONC 34 g/dL (31-37); MEAN CORPUSCULAR VOLUME 91 fL (79-100); MONO # 0.8 x10^3/uL (0.0-1.1); MONO % 8 % (0-9); NEUT % 79 % (31-73); PLATELET COUNT 229 x10^3/uL (140-400); RED BLOOD COUNT 4.58 x10^6/uL (3.50-5.40); RED CELL DISTRIBUTION WIDTH 13.8 % (11.5-14.5); WHITE BLOOD COUNT 10.1 x10^3/uL (4.0-11.0)
[2017-03-26 08:33] LABS: MAGNESIUM 2.3 mg/dL (1.8-2.4)
[2017-03-26 08:35] LABS: ALBUMIN 3.3 g/dL (3.4-5.0); ALBUMIN/GLOBULIN RATIO 1.1 (1.0-1.7); CALCIUM 9.4 mg/dL (8.5-10.1); GFR 54.5; POTASSIUM 4.6 mmol/L (3.5-5.1); TOTAL BILIRUBIN 0.5 mg/dL (0.2-1.0); TOTAL PROTEIN 6.3 g/dL (6.4-8.2)
[2017-03-26 08:36] LABS: VAL ACID 83 mcg/mL (50-100)
[2017-03-26] MEDS: OLANZapine 5 MG TABLET PO SCH (13:28)
[2017-03-26 16:05] VITALS: BP 109/83
[2017-03-26] MEDS: LATANOPROST 0.005% OPHTH SOLUTION 2.5ML BOTTLE. OU SCH (19:29)
[2017-03-26] MEDS: ATORVASTATIN CALCIUM 20 MG TABLET PO SCH (19:30)
--- NOTE | 2017-03-26 20:46 | PDOC ---
Exam Sourav Demential Exam: Sourav Note: Please also refer to the separate dictated note~for this date of service dictated separately.~Patient seen individually. Discussed the patient with Nursing staff reviewed the chart.~Reviewed interim history and current functioning. Reviewed vital signs,~Labs/ Radiology~and current medications noted below. Continue current treatment with the changes noted in the dictated addendum note Assessment: Vital Signs: Vital Signs Date Time Temp Pulse Resp B/P (MAP) Pulse Ox O2 Delivery O2 Flow Rate FiO2 03/26/17 16:05 97.4 97 18 109/83 (92) 95 03/26/17 06:27 Room Air I&O Intake and Output 03/27/17 07:00 Intake Total 50 ml Balance 50 ml Intake Oral 50 ml Labs: Laboratory Tests Test 03/26/17 07:56 White Blood Count 10.1 x10^3/uL (4.0-11.0) Red Blood Count 4.58 x10^6/uL (3.50-5.40) Hemoglobin 13.9 g/dL (12.0-15.5) Hematocrit 41.4 % (36.0-47.0) Mean Corpuscular Volume 91 fL (79-100) Mean Corpuscular Hemoglobin 30 pg (25-35) Mean Corpuscular Hemoglobin Concent 34 g/dL (31-37) Red Cell Distribution Width 13.8 % (11.5-14.5) Platelet Count 229 x10^3/uL (140-400) Neutrophils (%) (Auto) 79 % (31-73) H Lymphocytes (%) (Auto) 9 % (24-48) L Monocytes (%) (Auto) 8 % (0-9) Eosinophils (%) (Auto) 3 % (0-3) Basophils (%) (Auto) 1 % (0-3) Neutrophils # (Auto) 8.0 x10^3uL (1.8-7.7) H Lymphocytes # (Auto) 0.9 x10^3/uL (1.0-4.8) L Monocytes # (Auto) 0.8 x10^3/uL (0.0-1.1) Eosinophils # (Auto) 0.3 x10^3/uL (0.0-0.7) Basophils # (Auto) 0.1 x10^3/uL (0.0-0.2) Sodium Level 146 mmol/L (136-145) H Potassium Level 4.6 mmol/L (3.5-5.1) Chloride Level 111 mmol/L (98-107) H Carbon Dioxide Level 28 mmol/L (21-32) Anion Gap 7 (6-14) Blood Urea Nitrogen 15 mg/dL (7-20) Creatinine 1.0 mg/dL (0.6-1.0) Estimated GFR (Cockcroft-Gault) 54.5 BUN/Creatinine Ratio 15 (6-20) Glucose Level 87 mg/dL (70-99) Calcium Level 9.4 mg/dL (8.5-10.1) Magnesium Level 2.3 mg/dL (1.8-2.4) Total Bilirubin 0.5 mg/dL (0.2-1.0) Aspartate Amino Transferase (AST) 16 U/L (15-37) Alanine Aminotransferase (ALT) 20 U/L (14-59) Alkaline Phosphatase 96 U/L (46-116) Total Protein 6.3 g/dL (6.4-8.2) L Albumin 3.3 g/dL (3.4-5.0) L Albumin/Globulin Ratio 1.1 (1.0-1.7) Valproic Acid Level 83 mcg/mL (50-100) Valproic Acid Last Dose Date 03/25/17 Valproic Acid Last Dose Time 2100 Current Medications: Meds: Current Medications Olanzapine (ZyPREXA ZYDIS) 2.5 mg PRN Q2HR PRN PO PSYCHOSIS Last administered on 03/25/17 19:21; Start 03/17/17 at 07:45 Diphenhydramine HCl (Benadryl) 50 mg PRN Q6HRS PRN PO ANXIETY/AGITATION; Start 03/17/17 at 07:45; Stop 03/17/17 at 18:21; Status DC Acetaminophen (Tylenol) 650 mg PRN Q6HRS PRN PO PAIN / TEMP Last administered on 03/25/17 19:22; Start 03/17/17 at 09:15 Multi-Ingredient Ointment (Analgesic [place]) 1 gayle PRN QID PRN TP MUSCLE PAIN; Start 03/17/17 at 09:15 Al Hydroxide/Mg Hydroxide (Mylanta Plus Xs) 15 ml PRN AFTMEALHC PRN PO DYSPEPSIA; Start 03/17/17 at 09:15 Magnesium Hydroxide (Milk Of Magnesia) 2,400 mg PRN QHS PRN PO CONSTIPATION Last administered on 03/25/17 16:12; Start 03/17/17 at 09:15 Influenza Virus Vaccine Quadrival (Fluarix Quad [id number] Syringe) 0.5 ml ONCE ONCE VAX IM ; Start 03/18/17 at 09:00; Stop 03/18/17 at 09:02; Status DC Acyclovir (Zovirax) 200 mg PRN BID PRN PO blisters; Start 03/17/17 at 14:30 Alendronate Sodium (Fosamax) 70 mg WEEKLY PO ; Start 03/24/17 at 09:00; Stop 03/24/17 at 09:00; Status DC Cyanocobalamin (Vitamin B-12) 1,000 mcg DAILY PO Last administered on 07:50; Start 03/18/17 at 09:00 Cyclosporine (Restasis) 1 drop BID OU Last administered on 03/26/17 19:29; Start 03/17/17 at 21:00 Folic Acid (Folic Acid) 1 mg DAILY PO Last administered on 03/26/17 07:50; Start 03/18/17 at 09:00 Latanoprost (Xalatan) 1 drop QHS OU Last administered on 03/26/17 19:29; Start 03/17/17 at 21:00 Levothyroxine Sodium (Synthroid) 50 mcg DAILY06 PO Last administered on 05:25; Start 03/18/17 at 06:00 Meclizine HCl (Antivert) 12.5 mg PRN TID PRN PO DIZZINESS; Start 03/17/17 at 14:30 Polyethylene Glycol (miraLAX) 17 gm PRN DAILY PRN PO CONSTIPATION; Start 03/17 at 14:30 Atorvastatin Calcium (Lipitor) 40 mg QHS PO Last administered on 03/26/17 19: 30; Start 03/17/17 at 21:00 Brimonidine Tartrate (Alphagan) 1 drop BID OU Last administered on 03/20/17 11:32; Start 03/17/17 at 21:00; Stop 03/20/17 at 14:28; Status DC Non-Formulary Medication 1 each DAILY PO ; Start 03/18/17 at 09:00; Stop 03/18 at 09:00; Status DC Calcium/Vitamin D (Oscal D 500mg/ 200uts) 1 tab BIDWMEALS PO Last administered on 03/26/17 17:32; Start 03/17/17 at 17:00 Non-Formulary Medication 1 patch TWICE WEEKLY TP ; Start 03/20/17 at 15:00 Bupropion HCl (Wellbutrin Xl) 300 mg DAILY PO Last administered on 03/19/17 08:03; Start 03/18/17 at 09:00; Stop 03/19/17 at 14:39; Status DC Memantine (Namenda) 10 mg BID PO Last administered on 03/26/17 19:29; Start 03/17/17 at 21:00 Quetiapine Fumarate (SEROquel) 12.5 mg PRN DAILY PRN PO ANXIETY / AGITATION; Start 03/17/17 at 14:30 Timolol Maleate (Timoptic 0.5% [facility]) 1 drop BID OU Last administered on 19:29; Start 03/17/17 at 21:00 Bupropion HCl (Wellbutrin Xl) 150 mg DAILY PO Last administered on 03/26/17 07:50; Start 03/20/17 at 09:00; Stop 03/26/17 at 19:01; Status DC Divalproex Sodium (Depakote Sprinkles) 125 mg BID PO Last administered on 03/22 07:20; Start 03/19/17 at 21:00; Stop 03/22/17 at 15:18; Status DC Brimonidine Tartrate (Alphagan) 1 drop BID OU Last administered on 03/26/17 19:29; Start 03/20/17 at 14:28 Potassium Chloride (Klor-Con) 40 meq 1X ONCE PO Last administered on 09:15; Start 03/21/17 at 08:15; Stop 03/21/17 at 08:16; Status DC Potassium Chloride (Klor-Con) 40 meq 1X ONCE PO Last administered on 09:17; Start 03/21/17 at 09:00; Stop 03/21/17 at 09:01; Status DC Potassium Chloride (Klor-Con) 40 meq 1X ONCE PO Last administered on 10:18; Start 03/21/17 at 10:00; Stop 03/21/17 at 10:01; Status DC Potassium Chloride (Klor-Con) 20 meq TID PO Last administered on 03/26/17 19: 30; Start 03/21/17 at 21:00 Divalproex Sodium (Depakote Sprinkles) 125 mg DAILY PO Last administered on 07:52; Start 03/23/17 at 09:00; Stop 03/23/17 at 16:23; Status DC Divalproex Sodium (Depakote Sprinkles) 250 mg HS PO Last administered on 19:17; Start 03/22/17 at 21:00; Stop 03/23/17 at 16:23; Status DC Olanzapine (ZyPREXA) 5 mg DAILY PO ; Start 03/23/17 at 09:00; Stop 03/23/17 at 09:00; Status DC Olanzapine (ZyPREXA) 5 mg DAILY@1200 PO Last administered on 03/26/17 13:28; Start 03/23/17 at 12:00 Divalproex Sodium (Depakote Sprinkles) 250 mg BID PO Last administered on 03/26 19:30; Start 03/23/17 at 21:00 Alendronate Sodium (Fosamax) 70 mg WEEKLYAC PO Last administered on 03/24/17 09:04; Start 03/24/17 at 07:00 Sertraline HCl (Zoloft) 50 mg DAILY PO ; Start 03/27/17 at 09:00 Active Scripts Active Reported Seroquel (Quetiapine Fumarate) 25 Mg Tablet 0.5 Tab PO DAILY PRN Miralax (Polyethylene Glycol 3350) 17 Gm Powd.pack 1 Packet PO DAILY PRN Namenda (Memantine Hcl) 10 Mg Tablet 1 Tab PO BID Meclizine Hcl 12.5 Mg Tablet 1 Tab PO TID PRN Synthroid (Levothyroxine Sodium) 50 Mcg Tablet 1 Tab PO DAILY06 Xalatan (Latanoprost) 2.5 Ml Drops 1 Drop EACHEYE QHS Folic Acid 1 Mg Tablet 1 Tab PO DAILY Vivelle-Dot (Estradiol) 1 Each Patch.tdsw 1 Patch TP TWICE WEEKLY Restasis (Cyclosporine) 1 Each Droperette 1 Drop EACHEYE BID Vitamin B-12 (Cyanocobalamin (Vitamin B-12)) 1,000 Mcg Tablet 1 Tab PO DAILY Viactiv Soft Chew Tablet (Ca Carbonate/Vitamin D3/Vit K) 1 Each Tab.chew 1 Each PO DAILY Caltrate+D3 Plus Mineral Minis (Ca Carb/D3/Mag Ox/Column Precaster/Aaron/Zn) 1 Each Tablet 1 Each PO DAILY Wellbutrin Xl (Bupropion Hcl) 300 Mg Tab.er.24h 1 Tab PO DAILY Combigan Eye Drops (Brimonidine Tartrate/Timolol) 5 Ml Drops 1 Drop OU BID Lipitor (Atorvastatin Calcium) 40 Mg Tablet 1 Tab PO DAILY Alendronate Sodium 70 Mg Tablet 1 Tab PO WEEKLY Acyclovir 200 Mg Capsule 1 Cap PO BID PRN Diagnosis: Problems: (1) Anxiety disorder (2) Impulse control disorder (3) Dementia, vascular, with depression (4) Dementia, vascular, with delusions (5) Dementia in Alzheimer's disease with depression (6) Dementia in Alzheimer's disease with delusions AMARJIT RICH MD Mar 26, 2017 20:46
[2017-03-27] MEDS: LEVOTHYROXINE 50 MCG TABLET PO SCH (05:23)
[2017-03-27 05:54] VITALS: BP 117/69
[2017-03-27] MEDS: FOLIC ACID 1 MG TABLET PO SCH (07:30)
[2017-03-27] MEDS: CYANOCOBALAMIN (VITAMIN B-12) 1,000 MCG TABLET. PO SCH (07:30)
[2017-03-27] MEDS: POTASSIUM CHLORIDE 20 MEQ TABLET.ER. PO SCH ×3 (07:31→19:28)
[2017-03-27] MEDS: MEMANTINE 10 MG TABLET. PO SCH ×2 (07:31→19:27)
[2017-03-27] MEDS: cycloSPORINE 0.05% OPTH 1 DROP DROPERETTE OU SCH ×2 (07:31→19:28)
[2017-03-27] MEDS: CALCIUM CARB/VIT D3 500/200 TABLET PO SCH ×2 (07:31→17:24)
[2017-03-27] MEDS: DIVALPROEX 125 MG CAP.SPRINK PO SCH ×2 (07:31→19:28)
[2017-03-27] MEDS: TIMOLOL 0.5% OPHTH SOLUTION 5ML BOTTLE. OU SCH ×2 (07:33→19:29)
[2017-03-27] MEDS: SERTRALINE 50 MG TABLET. PO SCH (07:33)
[2017-03-27] MEDS: BRIMONIDINE 0.2% OPHTH SOLUTION 5ML BOTTLE. OU SCH ×2 (07:33→19:29)
[2017-03-27] MEDS: OLANZapine 5 MG TABLET PO SCH (12:05)
[2017-03-27 16:15] VITALS: BP 129/73
[2017-03-27] MEDS: ATORVASTATIN CALCIUM 20 MG TABLET PO SCH (19:28)
[2017-03-27] MEDS: LATANOPROST 0.005% OPHTH SOLUTION 2.5ML BOTTLE. OU SCH (19:29)
--- NOTE | 2017-03-27 22:11 | PDOC ---
Exam Sourav Demential Exam: Suorav Note: Please also refer to the separate dictated note~for this date of service dictated separately.~Patient seen individually. Discussed the patient with Nursing staff reviewed the chart.~Reviewed interim history and current functioning. Reviewed vital signs,~Labs/ Radiology~and current medications noted below. Continue current treatment with the changes noted in the dictated addendum note Assessment: Vital Signs: Vital Signs Date Time Temp Pulse Resp B/P (MAP) Pulse Ox O2 Delivery O2 Flow Rate FiO2 03/27/17 16:15 97.0 62 16 129/73 (91) 98 03/26/17 06:27 Room Air I&O Intake and Output 03/28/17 07:00 Intake Total 480 ml Balance 480 ml Intake Oral 480 ml Current Medications: Meds: Current Medications Olanzapine (ZyPREXA ZYDIS) 2.5 mg PRN Q2HR PRN PO PSYCHOSIS Last administered on 03/25/17 19:21; Start 03/17/17 at 07:45 Diphenhydramine HCl (Benadryl) 50 mg PRN Q6HRS PRN PO ANXIETY/AGITATION; Start 03/17/17 at 07:45; Stop 03/17/17 at 18:21; Status DC Acetaminophen (Tylenol) 650 mg PRN Q6HRS PRN PO PAIN / TEMP Last administered on 03/25/17 19:22; Start 03/17/17 at 09:15 Multi-Ingredient Ointment (Analgesic [place]) 1 gayle PRN QID PRN TP MUSCLE PAIN; Start 03/17/17 at 09:15 Al Hydroxide/Mg Hydroxide (Mylanta Plus Xs) 15 ml PRN AFTMEALHC PRN PO DYSPEPSIA; Start 03/17/17 at 09:15 Magnesium Hydroxide (Milk Of Magnesia) 2,400 mg PRN QHS PRN PO CONSTIPATION Last administered on 03/25/17 16:12; Start 03/17/17 at 09:15 Influenza Virus Vaccine Quadrival (Fluarix Quad [id number] Syringe) 0.5 ml ONCE ONCE VAX IM ; Start 03/18/17 at 09:00; Stop 03/18/17 at 09:02; Status DC Acyclovir (Zovirax) 200 mg PRN BID PRN PO blisters; Start 03/17/17 at 14:30 Alendronate Sodium (Fosamax) 70 mg WEEKLY PO ; Start 03/24/17 at 09:00; Stop 03/24/17 at 09:00; Status DC Cyanocobalamin (Vitamin B-12) 1,000 mcg DAILY PO Last administered on 07:30; Start 03/18/17 at 09:00 Cyclosporine (Restasis) 1 drop BID OU Last administered on 03/27/17 19:28; Start 03/17/17 at 21:00 Folic Acid (Folic Acid) 1 mg DAILY PO Last administered on 03/27/17 07:30; Start 03/18/17 at 09:00 Latanoprost (Xalatan) 1 drop QHS OU Last administered on 03/27/17 19:29; Start 03/17/17 at 21:00 Levothyroxine Sodium (Synthroid) 50 mcg DAILY06 PO Last administered on 05:23; Start 03/18/17 at 06:00 Meclizine HCl (Antivert) 12.5 mg PRN TID PRN PO DIZZINESS; Start 03/17/17 at 14:30 Polyethylene Glycol (miraLAX) 17 gm PRN DAILY PRN PO CONSTIPATION; Start 03/17 at 14:30 Atorvastatin Calcium (Lipitor) 40 mg QHS PO Last administered on 03/27/17 19: 28; Start 03/17/17 at 21:00 Brimonidine Tartrate (Alphagan) 1 drop BID OU Last administered on 03/20/17 11:32; Start 03/17/17 at 21:00; Stop 03/20/17 at 14:28; Status DC Non-Formulary Medication 1 each DAILY PO ; Start 03/18/17 at 09:00; Stop 03/18 at 09:00; Status DC Calcium/Vitamin D (Oscal D 500mg/ 200uts) 1 tab BIDWMEALS PO Last administered on 03/27/17 17:24; Start 03/17/17 at 17:00 Non-Formulary Medication 1 patch TWICE WEEKLY TP ; Start 03/20/17 at 15:00 Bupropion HCl (Wellbutrin Xl) 300 mg DAILY PO Last administered on 03/19/17 08:03; Start 03/18/17 at 09:00; Stop 03/19/17 at 14:39; Status DC Memantine (Namenda) 10 mg BID PO Last administered on 03/27/17 19:27; Start 03/17/17 at 21:00 Quetiapine Fumarate (SEROquel) 12.5 mg PRN DAILY PRN PO ANXIETY / AGITATION; Start 03/17/17 at 14:30 Timolol Maleate (Timoptic 0.5% [place]) 1 drop BID OU Last administered on 19:29; Start 03/17/17 at 21:00 Bupropion HCl (Wellbutrin Xl) 150 mg DAILY PO Last administered on 03/26/17 07:50; Start 03/20/17 at 09:00; Stop 03/26/17 at 19:01; Status DC Divalproex Sodium (Depakote Sprinkles) 125 mg BID PO Last administered on 03/22 07:20; Start 03/19/17 at 21:00; Stop 03/22/17 at 15:18; Status DC Brimonidine Tartrate (Alphagan) 1 drop BID OU Last administered on 03/27/17 19:29; Start 03/20/17 at 14:28 Potassium Chloride (Klor-Con) 40 meq 1X ONCE PO Last administered on 09:15; Start 03/21/17 at 08:15; Stop 03/21/17 at 08:16; Status DC Potassium Chloride (Klor-Con) 40 meq 1X ONCE PO Last administered on 09:17; Start 03/21/17 at 09:00; Stop 03/21/17 at 09:01; Status DC Potassium Chloride (Klor-Con) 40 meq 1X ONCE PO Last administered on 10:18; Start 03/21/17 at 10:00; Stop 03/21/17 at 10:01; Status DC Potassium Chloride (Klor-Con) 20 meq TID PO Last administered on 03/27/17 19: 28; Start 03/21/17 at 21:00 Divalproex Sodium (Depakote Sprinkles) 125 mg DAILY PO Last administered on 07:52; Start 03/23/17 at 09:00; Stop 03/23/17 at 16:23; Status DC Divalproex Sodium (Depakote Sprinkles) 250 mg HS PO Last administered on 19:17; Start 03/22/17 at 21:00; Stop 03/23/17 at 16:23; Status DC Olanzapine (ZyPREXA) 5 mg DAILY PO ; Start 03/23/17 at 09:00; Stop 03/23/17 at 09:00; Status DC Olanzapine (ZyPREXA) 5 mg DAILY@1200 PO Last administered on 03/27/17 12:05; Start 03/23/17 at 12:00 Divalproex Sodium (Depakote Sprinkles) 250 mg BID PO Last administered on 03/27 19:28; Start 03/23/17 at 21:00 Alendronate Sodium (Fosamax) 70 mg WEEKLYAC PO Last administered on 03/24/17 09:04; Start 03/24/17 at 07:00 Sertraline HCl (Zoloft) 50 mg DAILY PO Last administered on 03/27/17 07:33; Start 03/27/17 at 09:00 Dronabinol (Marinol) 2.5 mg DAILY07 PO ; Start 03/28/17 at 07:00 Active Scripts Active Reported Seroquel (Quetiapine Fumarate) 25 Mg Tablet 0.5 Tab PO DAILY PRN Miralax (Polyethylene Glycol 3350) 17 Gm Powd.pack 1 Packet PO DAILY PRN Namenda (Memantine Hcl) 10 Mg Tablet 1 Tab PO BID Meclizine Hcl 12.5 Mg Tablet 1 Tab PO TID PRN Synthroid (Levothyroxine Sodium) 50 Mcg Tablet 1 Tab PO DAILY06 Xalatan (Latanoprost) 2.5 Ml Drops 1 Drop EACHEYE QHS Folic Acid 1 Mg Tablet 1 Tab PO DAILY Vivelle-Dot (Estradiol) 1 Each Patch.tdsw 1 Patch TP TWICE WEEKLY Restasis (Cyclosporine) 1 Each Droperette 1 Drop EACHEYE BID Vitamin B-12 (Cyanocobalamin (Vitamin B-12)) 1,000 Mcg Tablet 1 Tab PO DAILY Viactiv Soft Chew Tablet (Ca Carbonate/Vitamin D3/Vit K) 1 Each Tab.chew 1 Each PO DAILY Caltrate+D3 Plus Mineral Minis (Ca Carb/D3/Mag Ox/Consolidation Accountant/Aaron/Zn) 1 Each Tablet 1 Each PO DAILY Wellbutrin Xl (Bupropion Hcl) 300 Mg Tab.er.24h 1 Tab PO DAILY Combigan Eye Drops (Brimonidine Tartrate/Timolol) 5 Ml Drops 1 Drop OU BID Lipitor (Atorvastatin Calcium) 40 Mg Tablet 1 Tab PO DAILY Alendronate Sodium 70 Mg Tablet 1 Tab PO WEEKLY Acyclovir 200 Mg Capsule 1 Cap PO BID PRN Diagnosis: Problems: (1) Anxiety disorder (2) Impulse control disorder (3) Dementia, vascular, with depression (4) Dementia, vascular, with delusions (5) Dementia in Alzheimer's disease with depression (6) Dementia in Alzheimer's disease with delusions AMARJIT RICH MD Mar 27, 2017 22:11
--- NOTE | 2017-03-28 02:52 | PN ---
DATE: 03/26/2017 This late entry for 03/26/2017 covers elements not covered in my initial note of 03/26/2017. SUBJECTIVE: The patient remains confused per nursing report, has intermittent hallucinations, somewhat compulsive, unsteady in her gait, oriented to herself. REVIEW OF SYSTEMS: She is in a Broda chair, wearing a purple top, nonverbal, oriented to herself. No CV, , pulmonary, eye, ENT system symptoms on review. Reliability poor. MENTAL STATUS EXAM: Insight, judgment, recent and remote memory, attention, concentration, fund of knowledge poor, consistent with her diagnosis. LABORATORY DATA: Reviewed. IMPRESSION: Unchanged from initial note. PLAN: Start Zoloft 50 mg a day. Maintain Wellbutrin, Namenda, along with Depakote, Seroquel p.r.n., Zyprexa p.r.n. along with scheduled Zyprexa. Valproic acid level is therapeutic at 83. Reviewed drug interactions. Risk/benefit ratio favors no further change. AMARJIT RICH MD DR: SHANNON/deidra JOB#: [id number] / [id number]
[2017-03-28 06:01] VITALS: BP 122/78
[2017-03-28] MEDS: LEVOTHYROXINE 50 MCG TABLET PO SCH (06:30)
[2017-03-28] MEDS ORDERED: DRONABINOL 2.5 MG CAPSULE PO ONE (06:31)
[2017-03-28] MEDS: DRONABINOL 2.5 MG CAPSULE PO SCH (06:32)
[2017-03-28] MEDS: CALCIUM CARB/VIT D3 500/200 TABLET PO SCH ×2 (07:47→17:11)
[2017-03-28] MEDS: POTASSIUM CHLORIDE 20 MEQ TABLET.ER. PO SCH ×3 (07:47→19:14)
[2017-03-28] MEDS: SERTRALINE 50 MG TABLET. PO SCH (07:47)
[2017-03-28] MEDS: DIVALPROEX 125 MG CAP.SPRINK PO SCH (07:48)
[2017-03-28] MEDS: MEMANTINE 10 MG TABLET. PO SCH ×2 (07:48→19:15)
[2017-03-28] MEDS: CYANOCOBALAMIN (VITAMIN B-12) 1,000 MCG TABLET. PO SCH (07:48)
[2017-03-28] MEDS: FOLIC ACID 1 MG TABLET PO SCH (07:48)
[2017-03-28] MEDS: TIMOLOL 0.5% OPHTH SOLUTION 5ML BOTTLE. OU SCH ×2 (07:50→19:15)
[2017-03-28] MEDS: BRIMONIDINE 0.2% OPHTH SOLUTION 5ML BOTTLE. OU SCH ×2 (07:50→19:15)
[2017-03-28] MEDS: cycloSPORINE 0.05% OPTH 1 DROP DROPERETTE OU SCH ×2 (07:50→19:14)
[2017-03-28] MEDS: MAGNESIUM HYDROXIDE 2,400 MG/30 ML ORAL.SUSP. PO PRN ×2 (10:08→17:11)
[2017-03-28] MEDS: OLANZapine 5 MG TABLET PO SCH (12:00)
[2017-03-28] MEDS: QUEtiapine 25 MG TABLET. PO SCH (13:48)
[2017-03-28 16:36] VITALS: BP 119/82
[2017-03-28] MEDS: ATORVASTATIN CALCIUM 20 MG TABLET PO SCH (19:14)
[2017-03-28] MEDS: LATANOPROST 0.005% OPHTH SOLUTION 2.5ML BOTTLE. OU SCH (19:16)
--- NOTE | 2017-03-28 20:55 | PDOC ---
Exam Sourav Demential Exam: Sourav Note: Please also refer to the separate dictated note~for this date of service dictated separately.~Patient seen individually. Discussed the patient with Nursing staff reviewed the chart.~Reviewed interim history and current functioning. Reviewed vital signs,~Labs/ Radiology~and current medications noted below. Continue current treatment with the changes noted in the dictated addendum note Assessment: Vital Signs: Vital Signs Date Time Temp Pulse Resp B/P (MAP) Pulse Ox O2 Delivery O2 Flow Rate FiO2 03/28/17 16:36 97.5 86 18 119/82 (94) 95 Room Air I&O Intake and Output 03/29/17 07:00 Intake Total 540 ml Balance 540 ml Intake Oral 540 ml Current Medications: Meds: Current Medications Olanzapine (ZyPREXA ZYDIS) 2.5 mg PRN Q2HR PRN PO PSYCHOSIS Last administered on 03/25/17 19:21; Start 03/17/17 at 07:45 Diphenhydramine HCl (Benadryl) 50 mg PRN Q6HRS PRN PO ANXIETY/AGITATION; Start 03/17/17 at 07:45; Stop 03/17/17 at 18:21; Status DC Acetaminophen (Tylenol) 650 mg PRN Q6HRS PRN PO PAIN / TEMP Last administered on 03/25/17 19:22; Start 03/17/17 at 09:15 Multi-Ingredient Ointment (Analgesic [place]) 1 gayle PRN QID PRN TP MUSCLE PAIN; Start 03/17/17 at 09:15 Al Hydroxide/Mg Hydroxide (Mylanta Plus Xs) 15 ml PRN AFTMEALHC PRN PO DYSPEPSIA; Start 03/17/17 at 09:15 Magnesium Hydroxide (Milk Of Magnesia) 2,400 mg PRN QHS PRN PO CONSTIPATION Last administered on 03/28/17 17:11; Start 03/17/17 at 09:15 Influenza Virus Vaccine Quadrival (Fluarix Quad [id number] Syringe) 0.5 ml ONCE ONCE VAX IM ; Start 03/18/17 at 09:00; Stop 03/18/17 at 09:02; Status DC Acyclovir (Zovirax) 200 mg PRN BID PRN PO blisters; Start 03/17/17 at 14:30 Alendronate Sodium (Fosamax) 70 mg WEEKLY PO ; Start 03/24/17 at 09:00; Stop 03/24/17 at 09:00; Status DC Cyanocobalamin (Vitamin B-12) 1,000 mcg DAILY PO Last administered on 07:48; Start 03/18/17 at 09:00 Cyclosporine (Restasis) 1 drop BID OU Last administered on 03/28/17 19:14; Start 03/17/17 at 21:00 Folic Acid (Folic Acid) 1 mg DAILY PO Last administered on 03/28/17 07:48; Start 03/18/17 at 09:00 Latanoprost (Xalatan) 1 drop QHS OU Last administered on 03/28/17 19:16; Start 03/17/17 at 21:00 Levothyroxine Sodium (Synthroid) 50 mcg DAILY06 PO Last administered on 06:30; Start 03/18/17 at 06:00 Meclizine HCl (Antivert) 12.5 mg PRN TID PRN PO DIZZINESS; Start 03/17/17 at 14:30 Polyethylene Glycol (miraLAX) 17 gm PRN DAILY PRN PO CONSTIPATION; Start 03/17 at 14:30 Atorvastatin Calcium (Lipitor) 40 mg QHS PO Last administered on 03/28/17 19: 14; Start 03/17/17 at 21:00 Brimonidine Tartrate (Alphagan) 1 drop BID OU Last administered on 03/20/17 11:32; Start 03/17/17 at 21:00; Stop 03/20/17 at 14:28; Status DC Non-Formulary Medication 1 each DAILY PO ; Start 03/18/17 at 09:00; Stop 03/18 at 09:00; Status DC Calcium/Vitamin D (Oscal D 500mg/ 200uts) 1 tab BIDWMEALS PO Last administered on 03/28/17 17:11; Start 03/17/17 at 17:00 Non-Formulary Medication 1 patch TWICE WEEKLY TP ; Start 03/20/17 at 15:00; Stop 03/28/17 at 08:01; Status DC Bupropion HCl (Wellbutrin Xl) 300 mg DAILY PO Last administered on 03/19/17 08:03; Start 03/18/17 at 09:00; Stop 03/19/17 at 14:39; Status DC Memantine (Namenda) 10 mg BID PO Last administered on 03/28/17 19:15; Start 03/17/17 at 21:00 Quetiapine Fumarate (SEROquel) 12.5 mg PRN DAILY PRN PO ANXIETY / AGITATION; Start 03/17/17 at 14:30 Timolol Maleate (Timoptic 0.5% [place]) 1 drop BID OU Last administered on 19:15; Start 03/17/17 at 21:00 Bupropion HCl (Wellbutrin Xl) 150 mg DAILY PO Last administered on 03/26/17 07:50; Start 03/20/17 at 09:00; Stop 03/26/17 at 19:01; Status DC Divalproex Sodium (Depakote Sprinkles) 125 mg BID PO Last administered on 03/22 07:20; Start 03/19/17 at 21:00; Stop 03/22/17 at 15:18; Status DC Brimonidine Tartrate (Alphagan) 1 drop BID OU Last administered on 03/28/17 19 :15; Start 03/20/17 at 14:28 Potassium Chloride (Klor-Con) 40 meq 1X ONCE PO Last administered on 09:15; Start 03/21/17 at 08:15; Stop 03/21/17 at 08:16; Status DC Potassium Chloride (Klor-Con) 40 meq 1X ONCE PO Last administered on 09:17; Start 03/21/17 at 09:00; Stop 03/21/17 at 09:01; Status DC Potassium Chloride (Klor-Con) 40 meq 1X ONCE PO Last administered on 10:18; Start 03/21/17 at 10:00; Stop 03/21/17 at 10:01; Status DC Potassium Chloride (Klor-Con) 20 meq TID PO Last administered on 03/28/17 19: 14; Start 03/21/17 at 21:00 Divalproex Sodium (Depakote Sprinkles) 125 mg DAILY PO Last administered on 07:52; Start 03/23/17 at 09:00; Stop 03/23/17 at 16:23; Status DC Divalproex Sodium (Depakote Sprinkles) 250 mg HS PO Last administered on 19:17; Start 03/22/17 at 21:00; Stop 03/23/17 at 16:23; Status DC Olanzapine (ZyPREXA) 5 mg DAILY PO ; Start 03/23/17 at 09:00; Stop 03/23/17 at 09:00; Status DC Olanzapine (ZyPREXA) 5 mg DAILY@1200 PO Last administered on 03/27/17 12:05; Start 03/23/17 at 12:00; Stop 03/28/17 at 12:34; Status DC Divalproex Sodium (Depakote Sprinkles) 250 mg BID PO Last administered on 07:48; Start 03/23/17 at 21:00; Stop 03/28/17 at 12:34; Status DC Alendronate Sodium (Fosamax) 70 mg WEEKLYAC PO Last administered on 03/24/17 09:04; Start 03/24/17 at 07:00 Sertraline HCl (Zoloft) 50 mg DAILY PO Last administered on 03/28/17 07:47; Start 03/27/17 at 09:00 Dronabinol (Marinol) 2.5 mg DAILY07 PO Last administered on 03/28/17 06:32; Start 03/28/17 at 07:00 Dronabinol (Marinol) 2.5 mg STK-MED ONCE PO ; Start 03/28/17 at 06:31; Stop 03/28/17 at 06:32; Status DC Non-Formulary Medication 1 patch QMTH TP ; Start 03/29/17 at 16:00 Quetiapine Fumarate (SEROquel) 12.5 mg BID92 PO Last administered on 03/28/17 13:48; Start 03/28/17 at 14:00 Active Scripts Active Reported Seroquel (Quetiapine Fumarate) 25 Mg Tablet 0.5 Tab PO DAILY PRN Miralax (Polyethylene Glycol 3350) 17 Gm Powd.pack 1 Packet PO DAILY PRN Namenda (Memantine Hcl) 10 Mg Tablet 1 Tab PO BID Meclizine Hcl 12.5 Mg Tablet 1 Tab PO TID PRN Synthroid (Levothyroxine Sodium) 50 Mcg Tablet 1 Tab PO DAILY06 Xalatan (Latanoprost) 2.5 Ml Drops 1 Drop EACHEYE QHS Folic Acid 1 Mg Tablet 1 Tab PO DAILY Vivelle-Dot (Estradiol) 1 Each Patch.tdsw 1 Patch TP TWICE WEEKLY Restasis (Cyclosporine) 1 Each Droperette 1 Drop EACHEYE BID Vitamin B-12 (Cyanocobalamin (Vitamin B-12)) 1,000 Mcg Tablet 1 Tab PO DAILY Viactiv Soft Chew Tablet (Ca Carbonate/Vitamin D3/Vit K) 1 Each Tab.chew 1 Each PO DAILY Caltrate+D3 Plus Mineral Minis (Ca Carb/D3/Mag Ox/Pressure Supervisor/Aaron/Zn) 1 Each Tablet 1 Each PO DAILY Wellbutrin Xl (Bupropion Hcl) 300 Mg Tab.er.24h 1 Tab PO DAILY Combigan Eye Drops (Brimonidine Tartrate/Timolol) 5 Ml Drops 1 Drop OU BID Lipitor (Atorvastatin Calcium) 40 Mg Tablet 1 Tab PO DAILY Alendronate Sodium 70 Mg Tablet 1 Tab PO WEEKLY Acyclovir 200 Mg Capsule 1 Cap PO BID PRN Diagnosis: Problems: (1) Anxiety disorder (2) Impulse control disorder (3) Dementia, vascular, with depression (4) Dementia, vascular, with delusions (5) Dementia in Alzheimer's disease with depression (6) Dementia in Alzheimer's disease with delusions AMARJIT RICH MD Mar 28, 2017 20:55
--- NOTE | 2017-03-29 02:21 | PN ---
DATE: 03/27/2017 This late entry for 03/27/2017 covers elements not covered in my initial note of 03/27/2017. SUBJECTIVE: The patient was quite restless the previous evening, crying, disorganized in the morning. Her visits on a regular basis. Appetite is poor and we will add Marinol 2.5 mg a day. REVIEW OF SYSTEMS: Ambulation impaired. No CV, , pulmonary, eye, ENT system symptoms on review. Previously, she was ambulating on her own with gait being unsteady in question whether Depakote is impairing her ambulation. MENTAL STATUS EXAMINATION: Oriented to herself. Insight, judgment, recent and remote memory, attention, concentration, fund of knowledge poor, consistent with her diagnosis mentioned in my initial note. PLAN: Continue current psychotropics. Reviewed drug interactions and risk/benefit ratio, favors no further change except the addition of Marinol to stimulate appetite. AMARJIT RICH MD DR: SHANNON/deidra JOB#: [id number] / [id number]
[2017-03-29] MEDS: LEVOTHYROXINE 50 MCG TABLET PO SCH (05:24)
[2017-03-29] MEDS: ACETAMINOPHEN 325 MG TABLET PO PRN (05:24)
[2017-03-29] MEDS: DRONABINOL 2.5 MG CAPSULE PO SCH (05:26)
[2017-03-29 06:20] VITALS: BP 161/89
[2017-03-29] MEDS: FOLIC ACID 1 MG TABLET PO SCH (09:02)
[2017-03-29] MEDS: CYANOCOBALAMIN (VITAMIN B-12) 1,000 MCG TABLET. PO SCH (09:02)
[2017-03-29] MEDS: MEMANTINE 10 MG TABLET. PO SCH ×2 (09:02→20:34)
[2017-03-29] MEDS: POTASSIUM CHLORIDE 20 MEQ TABLET.ER. PO SCH ×3 (09:02→20:32)
[2017-03-29] MEDS: CALCIUM CARB/VIT D3 500/200 TABLET PO SCH ×2 (09:03→16:36)
[2017-03-29] MEDS: QUEtiapine 25 MG TABLET. PO SCH ×2 (09:03→16:36)
[2017-03-29] MEDS: SERTRALINE 50 MG TABLET. PO SCH (09:03)
[2017-03-29] MEDS: cycloSPORINE 0.05% OPTH 1 DROP DROPERETTE OU SCH ×2 (09:04→20:33)
[2017-03-29] MEDS: TIMOLOL 0.5% OPHTH SOLUTION 5ML BOTTLE. OU SCH ×2 (09:06→20:31)
[2017-03-29] MEDS: BRIMONIDINE 0.2% OPHTH SOLUTION 5ML BOTTLE. OU SCH ×2 (09:07→20:31)
[2017-03-29 16:27] VITALS: BP 136/67
[2017-03-29] MEDS: VIVELLE DOT TP SCH (16:54)
[2017-03-29] MEDS: LATANOPROST 0.005% OPHTH SOLUTION 2.5ML BOTTLE. OU SCH (20:31)
[2017-03-29] MEDS: ATORVASTATIN CALCIUM 20 MG TABLET PO SCH (20:32)
--- NOTE | 2017-03-29 20:52 | PDOC ---
Exam Sourav Demential Exam: Sourav Note: Please also refer to the separate dictated note~for this date of service dictated separately.~Patient seen individually. Discussed the patient with Nursing staff reviewed the chart.~Reviewed interim history and current functioning. Reviewed vital signs,~Labs/ Radiology~and current medications noted below. Continue current treatment with the changes noted in the dictated addendum note Assessment: Vital Signs: Vital Signs Date Time Temp Pulse Resp B/P (MAP) Pulse Ox O2 Delivery O2 Flow Rate FiO2 03/29/17 16:27 97.9 82 16 136/67 (90) 97 Room Air I&O Intake and Output 03/30/17 07:00 Intake Total 780 ml Balance 780 ml Intake Oral 780 ml # Bowel Movements 1 Current Medications: Meds: Current Medications Olanzapine (ZyPREXA ZYDIS) 2.5 mg PRN Q2HR PRN PO PSYCHOSIS Last administered on 03/28/17 23:21; Start 03/17/17 at 07:45 Diphenhydramine HCl (Benadryl) 50 mg PRN Q6HRS PRN PO ANXIETY/AGITATION; Start 03/17/17 at 07:45; Stop 03/17/17 at 18:21; Status DC Acetaminophen (Tylenol) 650 mg PRN Q6HRS PRN PO PAIN / TEMP Last administered on 03/29/17 05:24; Start 03/17/17 at 09:15 Multi-Ingredient Ointment (Analgesic [place]) 1 gayle PRN QID PRN TP MUSCLE PAIN; Start 03/17/17 at 09:15 Al Hydroxide/Mg Hydroxide (Mylanta Plus Xs) 15 ml PRN AFTMEALHC PRN PO DYSPEPSIA; Start 03/17/17 at 09:15 Magnesium Hydroxide (Milk Of Magnesia) 2,400 mg PRN QHS PRN PO CONSTIPATION Last administered on 03/28/17 17:11; Start 03/17/17 at 09:15 Influenza Virus Vaccine Quadrival (Fluarix Quad [id number] Syringe) 0.5 ml ONCE ONCE VAX IM ; Start 03/18/17 at 09:00; Stop 03/18/17 at 09:02; Status DC Acyclovir (Zovirax) 200 mg PRN BID PRN PO blisters; Start 03/17/17 at 14:30 Alendronate Sodium (Fosamax) 70 mg WEEKLY PO ; Start 03/24/17 at 09:00; Stop 03/24/17 at 09:00; Status DC Cyanocobalamin (Vitamin B-12) 1,000 mcg DAILY PO Last administered on 09:02; Start 03/18/17 at 09:00 Cyclosporine (Restasis) 1 drop BID OU Last administered on 03/29/17 20:33; Start 03/17/17 at 21:00 Folic Acid (Folic Acid) 1 mg DAILY PO Last administered on 03/29/17 09:02; Start 03/18/17 at 09:00 Latanoprost (Xalatan) 1 drop QHS OU Last administered on 03/29/17 20:31; Start 03/17/17 at 21:00 Levothyroxine Sodium (Synthroid) 50 mcg DAILY06 PO Last administered on 05:24; Start 03/18/17 at 06:00 Meclizine HCl (Antivert) 12.5 mg PRN TID PRN PO DIZZINESS; Start 03/17/17 at 14:30 Polyethylene Glycol (miraLAX) 17 gm PRN DAILY PRN PO CONSTIPATION; Start 03/17 at 14:30 Atorvastatin Calcium (Lipitor) 40 mg QHS PO Last administered on 03/29/17 20: 32; Start 03/17/17 at 21:00 Brimonidine Tartrate (Alphagan) 1 drop BID OU Last administered on 03/20/17 11:32; Start 03/17/17 at 21:00; Stop 03/20/17 at 14:28; Status DC Non-Formulary Medication 1 each DAILY PO ; Start 03/18/17 at 09:00; Stop 03/18 at 09:00; Status DC Calcium/Vitamin D (Oscal D 500mg/ 200uts) 1 tab BIDWMEALS PO Last administered on 03/29/17 16:36; Start 03/17/17 at 17:00 Non-Formulary Medication 1 patch TWICE WEEKLY TP ; Start 03/20/17 at 15:00; Stop 03/28/17 at 08:01; Status DC Bupropion HCl (Wellbutrin Xl) 300 mg DAILY PO Last administered on 03/19/17 08:03; Start 03/18/17 at 09:00; Stop 03/19/17 at 14:39; Status DC Memantine (Namenda) 10 mg BID PO Last administered on 03/29/17 20:34; Start 03/17/17 at 21:00 Quetiapine Fumarate (SEROquel) 12.5 mg PRN DAILY PRN PO ANXIETY / AGITATION; Start 03/17/17 at 14:30 Timolol Maleate (Timoptic 0.5% Ophth) 1 drop BID OU Last administered on 20:31; Start 03/17/17 at 21:00 Bupropion HCl (Wellbutrin Xl) 150 mg DAILY PO Last administered on 03/26/17 07:50; Start 03/20/17 at 09:00; Stop 03/26/17 at 19:01; Status DC Divalproex Sodium (Depakote Sprinkles) 125 mg BID PO Last administered on 03/22 07:20; Start 03/19/17 at 21:00; Stop 03/22/17 at 15:18; Status DC Brimonidine Tartrate (Alphagan) 1 drop BID OU Last administered on 03/29/17 20 :31; Start 03/20/17 at 14:28 Potassium Chloride (Klor-Con) 40 meq 1X ONCE PO Last administered on 09:15; Start 03/21/17 at 08:15; Stop 03/21/17 at 08:16; Status DC Potassium Chloride (Klor-Con) 40 meq 1X ONCE PO Last administered on 09:17; Start 03/21/17 at 09:00; Stop 03/21/17 at 09:01; Status DC Potassium Chloride (Klor-Con) 40 meq 1X ONCE PO Last administered on 10:18; Start 03/21/17 at 10:00; Stop 03/21/17 at 10:01; Status DC Potassium Chloride (Klor-Con) 20 meq TID PO Last administered on 03/29/17 20: 32; Start 03/21/17 at 21:00 Divalproex Sodium (Depakote Sprinkles) 125 mg DAILY PO Last administered on 07:52; Start 03/23/17 at 09:00; Stop 03/23/17 at 16:23; Status DC Divalproex Sodium (Depakote Sprinkles) 250 mg HS PO Last administered on 19:17; Start 03/22/17 at 21:00; Stop 03/23/17 at 16:23; Status DC Olanzapine (ZyPREXA) 5 mg DAILY PO ; Start 03/23/17 at 09:00; Stop 03/23/17 at 09:00; Status DC Olanzapine (ZyPREXA) 5 mg DAILY@1200 PO Last administered on 03/27/17 12:05; Start 03/23/17 at 12:00; Stop 03/28/17 at 12:34; Status DC Divalproex Sodium (Depakote Sprinkles) 250 mg BID PO Last administered on 07:48; Start 03/23/17 at 21:00; Stop 03/28/17 at 12:34; Status DC Alendronate Sodium (Fosamax) 70 mg WEEKLYAC PO Last administered on 03/24/17 09:04; Start 03/24/17 at 07:00 Sertraline HCl (Zoloft) 50 mg DAILY PO Last administered on 03/29/17 09:03; Start 03/27/17 at 09:00 Dronabinol (Marinol) 2.5 mg DAILY07 PO Last administered on 03/29/17 05:26; Start 03/28/17 at 07:00; Stop 03/29/17 at 18:53; Status DC Dronabinol (Marinol) 2.5 mg STK-MED ONCE PO ; Start 03/28/17 at 06:31; Stop 03/28/17 at 06:32; Status DC Non-Formulary Medication 1 patch QMTH TP Last administered on 03/29/17 16:54; Start 03/29/17 at 16:00 Quetiapine Fumarate (SEROquel) 12.5 mg BID92 PO Last administered on 03/29/17 16:36; Start 03/28/17 at 14:00 Dronabinol (Marinol) 2.5 mg BIDWBKFT/MICAELA PO ; Start 03/30/17 at 08:00 Mirtazapine (Remeron) 7.5 mg QHS PO Last administered on 11/2/17at 20:33; Start 03/29/17 at 21:00 Active Scripts Active Reported Seroquel (Quetiapine Fumarate) 25 Mg Tablet 0.5 Tab PO DAILY PRN Miralax (Polyethylene Glycol 3350) 17 Gm Powd.pack 1 Packet PO DAILY PRN Namenda (Memantine Hcl) 10 Mg Tablet 1 Tab PO BID Meclizine Hcl 12.5 Mg Tablet 1 Tab PO TID PRN Synthroid (Levothyroxine Sodium) 50 Mcg Tablet 1 Tab PO DAILY06 Xalatan (Latanoprost) 2.5 Ml Drops 1 Drop EACHEYE QHS Folic Acid 1 Mg Tablet 1 Tab PO DAILY Vivelle-Dot (Estradiol) 1 Each Patch.tdsw 1 Patch TP TWICE WEEKLY Restasis (Cyclosporine) 1 Each Droperette 1 Drop EACHEYE BID Vitamin B-12 (Cyanocobalamin (Vitamin B-12)) 1,000 Mcg Tablet 1 Tab PO DAILY Viactiv Soft Chew Tablet (Ca Carbonate/Vitamin D3/Vit K) 1 Each Tab.chew 1 Each PO DAILY Caltrate+D3 Plus Mineral Minis (Ca Carb/D3/Mag Ox/Supervisor Of Operations/Aaron/Zn) 1 Each Tablet 1 Each PO DAILY Wellbutrin Xl (Bupropion Hcl) 300 Mg Tab.er.24h 1 Tab PO DAILY Combigan Eye Drops (Brimonidine Tartrate/Timolol) 5 Ml Drops 1 Drop OU BID Lipitor (Atorvastatin Calcium) 40 Mg Tablet 1 Tab PO DAILY Alendronate Sodium 70 Mg Tablet 1 Tab PO WEEKLY Acyclovir 200 Mg Capsule 1 Cap PO BID PRN Diagnosis: Problems: (1) Anxiety disorder (2) Impulse control disorder (3) Dementia, vascular, with depression (4) Dementia, vascular, with delusions (5) Dementia in Alzheimer's disease with depression (6) Dementia in Alzheimer's disease with delusions AMARJIT RICH MD Mar 29, 2017 20:52
[2017-03-29] MEDS ORDERED: MIRTAZAPINE 7.5 MG TABLET. PO SCH (21:00)
--- NOTE | 2017-03-29 23:19 | PN ---
DATE: 03/28/2017 This is a late entry for 03/28/2017 covers elements not covered in my initial note of 03/28/2017. SUBJECTIVE: I met with the patient in the evening of 03/28/2017, staffed the patient at the treatment team meeting with the entire team and the patient's attending the conference together with the patient's son, Nathan. We reviewed the patient's history at length including progressive worsening of confusion and agitation prompting this admission. The patient's memory deficits have been worsening for about 2 years, much worse for 1 year along with delusions, active hallucinations, hearing things. The patient remains intermittently tearful. Appetite is poor. Family expressed concern about her impaired ambulation since she was ambulating at admission and is now in a wheelchair, Broda chair. Depakote was initiated for behavioral control and could be contributing to the above, but we will go ahead and stop it for now on a trial basis. Reviewed her diagnosis, recent plans, discharge aftercare at great length with the family, answered their many questions. REVIEW OF SYSTEMS: Ambulation impaired. No CV, , pulmonary, eye, ENT system symptoms on review. Reliability poor. MENTAL STATUS EXAM: Oriented to herself. Insight, judgment, recent and remote memory, attention, concentration, fund of knowledge poor, consistent with her diagnosis. Eye contact is poor. Speech, low in rate and rhythm, often responses monosyllabic. As I questioned her, she was able to tell me that her 's first name is Jose and she was able to say that this starts with Lindsey and that her first name is Armando, but that her name starts with J. Despite her confusion, she was quite accurate in this observation. LABORATORY DATA: Reviewed. IMPRESSION: Unchanged from initial note. PLAN: Discontinue the Depakote. Continue Namenda 10 mg b.i.d. and Zoloft 50 mg a day, Seroquel p.r.n. Zyprexa will be stopped and she is being started on Seroquel 12.5 mg at 9 a.m. and 2 p.m. We will have to monitor her appetite carefully and make further changes as clinically indicated. For now, she is on Marinol to help with this. MAN Maryam RICH MD DR: SHANNON/deidra JOB#: [id number] / [id number]
[2017-03-30] MEDS: LEVOTHYROXINE 50 MCG TABLET PO SCH (05:12)
[2017-03-30 06:16] VITALS: BP 150/90
[2017-03-30] MEDS: MEMANTINE 10 MG TABLET. PO SCH ×2 (09:17→19:31)
[2017-03-30] MEDS: CYANOCOBALAMIN (VITAMIN B-12) 1,000 MCG TABLET. PO SCH (09:17)
[2017-03-30] MEDS: SERTRALINE 50 MG TABLET. PO SCH (09:17)
[2017-03-30] MEDS: FOLIC ACID 1 MG TABLET PO SCH (09:17)
[2017-03-30] MEDS: POTASSIUM CHLORIDE 20 MEQ TABLET.ER. PO SCH ×3 (09:17→19:31)
[2017-03-30] MEDS: TIMOLOL 0.5% OPHTH SOLUTION 5ML BOTTLE. OU SCH ×2 (09:18→19:43)
[2017-03-30] MEDS: CALCIUM CARB/VIT D3 500/200 TABLET PO SCH ×2 (09:18→15:27)
[2017-03-30] MEDS: QUEtiapine 25 MG TABLET. PO SCH ×2 (09:18→15:27)
[2017-03-30] MEDS: cycloSPORINE 0.05% OPTH 1 DROP DROPERETTE OU SCH ×2 (09:19→19:30)
[2017-03-30] MEDS: BRIMONIDINE 0.2% OPHTH SOLUTION 5ML BOTTLE. OU SCH ×2 (09:19→19:43)
[2017-03-30] MEDS: DRONABINOL 2.5 MG CAPSULE PO SCH ×2 (09:24→15:26)
[2017-03-30 16:18] VITALS: BP 105/68
[2017-03-30] MEDS ORDERED: traZODone 50 MG TABLET. PO PRN (18:45)
[2017-03-30] MEDS: ATORVASTATIN CALCIUM 20 MG TABLET PO SCH (19:31)
[2017-03-30] MEDS: traZODone 50 MG TABLET. PO SCH ×2 (19:42→23:43)
[2017-03-30] MEDS: MIRTAZAPINE 15 MG TABLET PO SCH (19:42)
[2017-03-30] MEDS: LATANOPROST 0.005% OPHTH SOLUTION 2.5ML BOTTLE. OU SCH (19:43)
--- NOTE | 2017-03-30 21:01 | PDOC ---
Exam Sourav Demential Exam: Suorav Note: Please also refer to the separate dictated note~for this date of service dictated separately.~Patient seen individually. Discussed the patient with Nursing staff reviewed the chart.~Reviewed interim history and current functioning. Reviewed vital signs,~Labs/ Radiology~and current medications noted below. Continue current treatment with the changes noted in the dictated addendum note Assessment: Vital Signs: Vital Signs Date Time Temp Pulse Resp B/P (MAP) Pulse Ox O2 Delivery O2 Flow Rate FiO2 03/30/17 16:18 97.6 85 20 105/68 (80) 97 03/29/17 16:27 Room Air I&O Intake and Output 03/31/17 07:00 Intake Total 700 ml Balance 700 ml Intake Oral 700 ml Current Medications: Meds: Current Medications Olanzapine (ZyPREXA ZYDIS) 2.5 mg PRN Q2HR PRN PO PSYCHOSIS Last administered on 03/30/17 00:55; Start 03/17/17 at 07:45 Diphenhydramine HCl (Benadryl) 50 mg PRN Q6HRS PRN PO ANXIETY/AGITATION; Start 03/17/17 at 07:45; Stop 03/17/17 at 18:21; Status DC Acetaminophen (Tylenol) 650 mg PRN Q6HRS PRN PO PAIN / TEMP Last administered on 03/29/17 05:24; Start 03/17/17 at 09:15 Multi-Ingredient Ointment (Analgesic [place]) 1 gayle PRN QID PRN TP MUSCLE PAIN; Start 03/17/17 at 09:15 Al Hydroxide/Mg Hydroxide (Mylanta Plus Xs) 15 ml PRN AFTMEALHC PRN PO DYSPEPSIA; Start 03/17/17 at 09:15 Magnesium Hydroxide (Milk Of Magnesia) 2,400 mg PRN QHS PRN PO CONSTIPATION Last administered on 03/28/17 17:11; Start 03/17/17 at 09:15 Influenza Virus Vaccine Quadrival (Fluarix Quad [id number] Syringe) 0.5 ml ONCE ONCE VAX IM ; Start 03/18/17 at 09:00; Stop 03/18/17 at 09:02; Status DC Acyclovir (Zovirax) 200 mg PRN BID PRN PO blisters; Start 03/17/17 at 14:30 Alendronate Sodium (Fosamax) 70 mg WEEKLY PO ; Start 03/24/17 at 09:00; Stop 03/24/17 at 09:00; Status DC Cyanocobalamin (Vitamin B-12) 1,000 mcg DAILY PO Last administered on 09:17; Start 03/18/17 at 09:00 Cyclosporine (Restasis) 1 drop BID OU Last administered on 03/30/17 19:30; Start 03/17/17 at 21:00 Folic Acid (Folic Acid) 1 mg DAILY PO Last administered on 03/30/17 09:17; Start 03/18/17 at 09:00 Latanoprost (Xalatan) 1 drop QHS OU Last administered on 03/30/17 19:43; Start 03/17/17 at 21:00 Levothyroxine Sodium (Synthroid) 50 mcg DAILY06 PO Last administered on 05:12; Start 03/18/17 at 06:00 Meclizine HCl (Antivert) 12.5 mg PRN TID PRN PO DIZZINESS; Start 03/17/17 at 14:30 Polyethylene Glycol (miraLAX) 17 gm PRN DAILY PRN PO CONSTIPATION; Start 03/17 at 14:30 Atorvastatin Calcium (Lipitor) 40 mg QHS PO Last administered on 03/30/17 19: 31; Start 03/17/17 at 21:00 Brimonidine Tartrate (Alphagan) 1 drop BID OU Last administered on 03/20/17 11:32; Start 03/17/17 at 21:00; Stop 03/20/17 at 14:28; Status DC Non-Formulary Medication 1 each DAILY PO ; Start 03/18/17 at 09:00; Stop 03/18 at 09:00; Status DC Calcium/Vitamin D (Oscal D 500mg/ 200uts) 1 tab BIDWMEALS PO Last administered on 03/30/17 15:27; Start 03/17/17 at 17:00 Non-Formulary Medication 1 patch TWICE WEEKLY TP ; Start 03/20/17 at 15:00; Stop 03/28/17 at 08:01; Status DC Bupropion HCl (Wellbutrin Xl) 300 mg DAILY PO Last administered on 03/19/17 08:03; Start 03/18/17 at 09:00; Stop 03/19/17 at 14:39; Status DC Memantine (Namenda) 10 mg BID PO Last administered on 03/30/17 19:31; Start 03/17/17 at 21:00 Quetiapine Fumarate (SEROquel) 12.5 mg PRN DAILY PRN PO ANXIETY / AGITATION; Start 03/17/17 at 14:30 Timolol Maleate (Timoptic 0.5% Oph) 1 drop BID OU Last administered on 19:43; Start 03/17/17 at 21:00 Bupropion HCl (Wellbutrin Xl) 150 mg DAILY PO Last administered on 03/26/17 07:50; Start 03/20/17 at 09:00; Stop 03/26/17 at 19:01; Status DC Divalproex Sodium (Depakote Sprinkles) 125 mg BID PO Last administered on 03/22 07:20; Start 03/19/17 at 21:00; Stop 03/22/17 at 15:18; Status DC Brimonidine Tartrate (Alphagan) 1 drop BID OU Last administered on 03/30/17 19 :43; Start 03/20/17 at 14:28 Potassium Chloride (Klor-Con) 40 meq 1X ONCE PO Last administered on 09:15; Start 03/21/17 at 08:15; Stop 03/21/17 at 08:16; Status DC Potassium Chloride (Klor-Con) 40 meq 1X ONCE PO Last administered on 09:17; Start 03/21/17 at 09:00; Stop 03/21/17 at 09:01; Status DC Potassium Chloride (Klor-Con) 40 meq 1X ONCE PO Last administered on 10:18; Start 03/21/17 at 10:00; Stop 03/21/17 at 10:01; Status DC Potassium Chloride (Klor-Con) 20 meq TID PO Last administered on 03/30/17 19: 31; Start 03/21/17 at 21:00 Divalproex Sodium (Depakote Sprinkles) 125 mg DAILY PO Last administered on 07:52; Start 03/23/17 at 09:00; Stop 03/23/17 at 16:23; Status DC Divalproex Sodium (Depakote Sprinkles) 250 mg HS PO Last administered on 19:17; Start 03/22/17 at 21:00; Stop 03/23/17 at 16:23; Status DC Olanzapine (ZyPREXA) 5 mg DAILY PO ; Start 03/23/17 at 09:00; Stop 03/23/17 at 09:00; Status DC Olanzapine (ZyPREXA) 5 mg DAILY@1200 PO Last administered on 03/27/17 12:05; Start 03/23/17 at 12:00; Stop 03/28/17 at 12:34; Status DC Divalproex Sodium (Depakote Sprinkles) 250 mg BID PO Last administered on 07:48; Start 03/23/17 at 21:00; Stop 03/28/17 at 12:34; Status DC Alendronate Sodium (Fosamax) 70 mg WEEKLYAC PO Last administered on 03/24/17 09:04; Start 03/24/17 at 07:00 Sertraline HCl (Zoloft) 50 mg DAILY PO Last administered on 03/30/17 09:17; Start 03/27/17 at 09:00 Dronabinol (Marinol) 2.5 mg DAILY07 PO Last administered on 03/29/17 05:26; Start 03/28/17 at 07:00; Stop 03/29/17 at 18:53; Status DC Dronabinol (Marinol) 2.5 mg STK-MED ONCE PO ; Start 03/28/17 at 06:31; Stop 03/28/17 at 06:32; Status DC Non-Formulary Medication 1 patch QMTH TP Last administered on 03/29/17 16:54; Start 03/29/17 at 16:00 Quetiapine Fumarate (SEROquel) 12.5 mg BID92 PO Last administered on 03/30/17 15:27; Start 03/28/17 at 14:00 Dronabinol (Marinol) 2.5 mg BIDWBKFT/MICAELA PO Last administered on 03/30/17 15: 26; Start 03/30/17 at 08:00 Mirtazapine (Remeron) 7.5 mg QHS PO Last administered on 03/29/17 20:33; Start 03/29/17 at 21:00; Stop 03/30/17 at 18:33; Status DC Mirtazapine (Remeron) 15 mg QHS PO Last administered on 03/30/17 19:42; Start 03/30/17 at 21:00 Trazodone HCl (Desyrel) 50 mg QHS PO Last administered on 03/30/17 19:42; Start 03/30/17 at 21:00 Trazodone HCl (Desyrel) 50 mg PRN QHS PRN PO INSOMNIA; Start 03/30/17 at 18:45 Active Scripts Active Reported Seroquel (Quetiapine Fumarate) 25 Mg Tablet 0.5 Tab PO DAILY PRN Miralax (Polyethylene Glycol 3350) 17 Gm Powd.pack 1 Packet PO DAILY PRN Namenda (Memantine Hcl) 10 Mg Tablet 1 Tab PO BID Meclizine Hcl 12.5 Mg Tablet 1 Tab PO TID PRN Synthroid (Levothyroxine Sodium) 50 Mcg Tablet 1 Tab PO DAILY06 Xalatan (Latanoprost) 2.5 Ml Drops 1 Drop EACHEYE QHS Folic Acid 1 Mg Tablet 1 Tab PO DAILY Vivelle-Dot (Estradiol) 1 Each Patch.tdsw 1 Patch TP TWICE WEEKLY Restasis (Cyclosporine) 1 Each Droperette 1 Drop EACHEYE BID Vitamin B-12 (Cyanocobalamin (Vitamin B-12)) 1,000 Mcg Tablet 1 Tab PO DAILY Viactiv Soft Chew Tablet (Ca Carbonate/Vitamin D3/Vit K) 1 Each Tab.chew 1 Each PO DAILY Caltrate+D3 Plus Mineral Minis (Ca Carb/D3/Mag Ox/Graphic Pre Press Trades Worker/Aaron/Zn) 1 Each Tablet 1 Each PO DAILY Wellbutrin Xl (Bupropion Hcl) 300 Mg Tab.er.24h 1 Tab PO DAILY Combigan Eye Drops (Brimonidine Tartrate/Timolol) 5 Ml Drops 1 Drop OU BID Lipitor (Atorvastatin Calcium) 40 Mg Tablet 1 Tab PO DAILY Alendronate Sodium 70 Mg Tablet 1 Tab PO WEEKLY Acyclovir 200 Mg Capsule 1 Cap PO BID PRN Diagnosis: Problems: (1) Anxiety disorder (2) Impulse control disorder (3) Dementia, vascular, with depression (4) Dementia, vascular, with delusions (5) Dementia in Alzheimer's disease with depression (6) Dementia in Alzheimer's disease with delusions AMARJIT RICH MD Mar 30, 2017 21:01
[2017-03-31] MEDS: LEVOTHYROXINE 50 MCG TABLET PO SCH (05:35)
--- NOTE | 2017-03-31 09:25 | PN ---
DATE: 03/29/2017 This is a late entry for 03/29/2017 and covers elements not covered in my initial note of 03/29/2017. SUBJECTIVE: I met with the patient the evening of 03/29/2017. The patient slept poorly the previous evening, was off and on sleeping all day during the day on 03/29/2017. At night, she was mumbling in her partial sleep. She has been tearful at times, having some auditory and visual hallucinations per nursing report. REVIEW OF SYSTEMS: No CV, , pulmonary, eye, ENT system symptoms on review. Reliability poor. MENTAL STATUS EXAM: Oriented to herself. Insight, judgment, recent and remote memory, attention, concentration, fund of knowledge poor, consistent with her diagnoses mentioned in my initial note. PLAN: The patient's Depakote has been stopped, start Remeron 7.5 mg p.o. at bedtime to help with the insomnia and hopefully with the daytime sedation as a consequence of improvement of insomnia, increase the Marinol to 2.5 mg twice a day since appetite is still poor. Maintain the rest of the psychotropics. Reviewed drug interactions, risk/benefit ratio favors no further change. AMARJIT RICH MD DR: SHANNON/deidra JOB#: [id number] / [id number]
[2017-03-31] MEDS: SERTRALINE 50 MG TABLET. PO SCH (09:49)
[2017-03-31] MEDS: CYANOCOBALAMIN (VITAMIN B-12) 1,000 MCG TABLET. PO SCH (09:50)
[2017-03-31] MEDS: CALCIUM CARB/VIT D3 500/200 TABLET PO SCH ×2 (09:50→13:47)
[2017-03-31] MEDS: MEMANTINE 10 MG TABLET. PO SCH ×2 (09:50→20:33)
[2017-03-31] MEDS: FOLIC ACID 1 MG TABLET PO SCH (09:50)
[2017-03-31] MEDS: DRONABINOL 2.5 MG CAPSULE PO SCH ×2 (09:50→12:00)
[2017-03-31] MEDS: QUEtiapine 25 MG TABLET. PO SCH ×2 (09:50→13:47)
[2017-03-31] MEDS: POTASSIUM CHLORIDE 20 MEQ TABLET.ER. PO SCH ×3 (09:50→20:33)
[2017-03-31 09:51] LABS: ALBUMIN 3.1 g/dL (3.4-5.0); CALCIUM 8.5 mg/dL (8.5-10.1); CREATININE 0.9 mg/dL (0.6-1.0); GFR 61.5; POTASSIUM 4.8 mmol/L (3.5-5.1); TOTAL BILIRUBIN 0.3 mg/dL (0.2-1.0); TOTAL PROTEIN 6.1 g/dL (6.4-8.2)
[2017-03-31] MEDS: cycloSPORINE 0.05% OPTH 1 DROP DROPERETTE OU SCH ×2 (09:52→20:37)
[2017-03-31] MEDS: TIMOLOL 0.5% OPHTH SOLUTION 5ML BOTTLE. OU SCH ×2 (09:54→20:37)
[2017-03-31] MEDS: LATANOPROST 0.005% OPHTH SOLUTION 2.5ML BOTTLE. OU SCH (09:55)
[2017-03-31] MEDS: BRIMONIDINE 0.2% OPHTH SOLUTION 5ML BOTTLE. OU SCH ×2 (10:00→20:37)
[2017-03-31 16:16] VITALS: BP 102/75
[2017-03-31] MEDS: ATORVASTATIN CALCIUM 20 MG TABLET PO SCH (20:33)
[2017-03-31] MEDS: MIRTAZAPINE 15 MG TABLET PO SCH (20:34)
--- NOTE | 2017-03-31 22:31 | PN ---
DATE: 03/30/2017 PSYCHIATRIC PROGRESS NOTE This late entry for 03/30/2017, covers elements not covered in my initial note of 03/30/2017. SUBJECTIVE: Per nursing report, the patient slept poorly previous evening. Appetite is poor, restless, picking at things in the air, somewhat exhausted. Depakote was stopped and ambulation is still impaired, though she amputated slightly with nursing assistance. REVIEW OF SYSTEMS: No CV, , pulmonary, eye, ENT system symptoms on review. Reliability poor. MENTAL STATUS EXAM: Oriented to herself. Insight, judgment, recent and remote memory, attention, concentration, fund of knowledge poor, consistent with her diagnosis mentioned in my initial note. PLAN: Increase Remeron to 15 mg at bedtime. Add trazodone 50 mg at bedtime schedule plus 50 mg at bedtime p.r.n., maintain the rest unchanged. Reviewed drug interactions. Risk/benefit ratio favors no further change. AMARJIT RICH MD DR: SHANNON/deidra JOB#: [id number] / [id number]
--- NOTE | 2017-03-31 23:57 | PDOC ---
Exam Sourav Demential Exam: Sourav Note: Please also refer to the separate dictated note~for this date of service dictated separately.~Patient seen individually. Discussed the patient with Nursing staff reviewed the chart.~Reviewed interim history and current functioning. Reviewed vital signs,~Labs/ Radiology~and current medications noted below. Continue current treatment with the changes noted in the dictated addendum note Assessment: Vital Signs: Vital Signs Date Time Temp Pulse Resp B/P (MAP) Pulse Ox O2 Delivery O2 Flow Rate FiO2 03/31/17 16:16 97.6 66 20 102/75 (84) 98 03/29/17 16:27 Room Air I&O Intake and Output 04/01/17 07:00 Intake Total 480 ml Balance 480 ml Intake Oral 480 ml Labs: Laboratory Tests Test 03/31/17 09:16 Sodium Level 143 mmol/L (136-145) Potassium Level 4.8 mmol/L (3.5-5.1) Chloride Level 110 mmol/L (98-107) H Carbon Dioxide Level 28 mmol/L (21-32) Anion Gap 5 (6-14) L Blood Urea Nitrogen 20 mg/dL (7-20) Creatinine 0.9 mg/dL (0.6-1.0) Estimated GFR (Cockcroft-Gault) 61.5 BUN/Creatinine Ratio 22 (6-20) H Glucose Level 99 mg/dL (70-99) Calcium Level 8.5 mg/dL (8.5-10.1) Total Bilirubin 0.3 mg/dL (0.2-1.0) Aspartate Amino Transferase (AST) 13 U/L (15-37) L Alanine Aminotransferase (ALT) 14 U/L (14-59) Alkaline Phosphatase 89 U/L (46-116) Total Protein 6.1 g/dL (6.4-8.2) L Albumin 3.1 g/dL (3.4-5.0) L Albumin/Globulin Ratio 1.0 (1.0-1.7) Current Medications: Meds: Current Medications Olanzapine (ZyPREXA ZYDIS) 2.5 mg PRN Q2HR PRN PO PSYCHOSIS Last administered on 03/30/17t 00:55; Start 03/17/17 at 07:45 Diphenhydramine HCl (Benadryl) 50 mg PRN Q6HRS PRN PO ANXIETY/AGITATION; Start 03/17/17 at 07:45; Stop 03/17/17 at 18:21; Status DC Acetaminophen (Tylenol) 650 mg PRN Q6HRS PRN PO PAIN / TEMP Last administered on 03/29/17 05:24; Start 03/17/17 at 09:15 Multi-Ingredient Ointment (Analgesic [place]) 1 gayle PRN QID PRN TP MUSCLE PAIN; Start 03/17/17 at 09:15 Al Hydroxide/Mg Hydroxide (Mylanta Plus Xs) 15 ml PRN AFTMEALHC PRN PO DYSPEPSIA; Start 03/17/17 at 09:15 Magnesium Hydroxide (Milk Of Magnesia) 2,400 mg PRN QHS PRN PO CONSTIPATION Last administered on 03/28/17 17:11; Start 03/17/17 at 09:15 Influenza Virus Vaccine Quadrival (Fluarix Quad [id number] Syringe) 0.5 ml ONCE ONCE VAX IM ; Start 03/18/17 at 09:00; Stop 03/18/17 at 09:02; Status DC Acyclovir (Zovirax) 200 mg PRN BID PRN PO blisters; Start 03/17/17 at 14:30 Alendronate Sodium (Fosamax) 70 mg WEEKLY PO ; Start 03/24/17 at 09:00; Stop 03/24/17 at 09:00; Status DC Cyanocobalamin (Vitamin B-12) 1,000 mcg DAILY PO Last administered on 09:50; Start 03/18/17 at 09:00 Cyclosporine (Restasis) 1 drop BID OU Last administered on 03/31/17 20:37; Start 03/17/17 at 21:00 Folic Acid (Folic Acid) 1 mg DAILY PO Last administered on 03/31/17 09:50; Start 03/18/17 at 09:00 Latanoprost (Xalatan) 1 drop QHS OU Last administered on 03/31/17 09:55; Start 03/17/17 at 21:00 Levothyroxine Sodium (Synthroid) 50 mcg DAILY06 PO Last administered on 05:35; Start 03/18/17 at 06:00 Meclizine HCl (Antivert) 12.5 mg PRN TID PRN PO DIZZINESS; Start 03/17/17 at 14:30 Polyethylene Glycol (miraLAX) 17 gm PRN DAILY PRN PO CONSTIPATION; Start 03/17 at 14:30 Atorvastatin Calcium (Lipitor) 40 mg QHS PO Last administered on 03/31/17 20: 33; Start 03/17/17 at 21:00 Brimonidine Tartrate (Alphagan) 1 drop BID OU Last administered on 03/20/17 11:32; Start 03/17/17 at 21:00; Stop 03/20/17 at 14:28; Status DC Non-Formulary Medication 1 each DAILY PO ; Start 03/18/17 at 09:00; Stop 03/18 at 09:00; Status DC Calcium/Vitamin D (Oscal D 500mg/ 200uts) 1 tab BIDWMEALS PO Last administered on 03/31/17 13:47; Start 03/17/17 at 17:00 Non-Formulary Medication 1 patch TWICE WEEKLY TP ; Start 03/20/17 at 15:00; Stop 03/28/17 at 08:01; Status DC Bupropion HCl (Wellbutrin Xl) 300 mg DAILY PO Last administered on 03/19/17 08:03; Start 03/18/17 at 09:00; Stop 03/19/17 at 14:39; Status DC Memantine (Namenda) 10 mg BID PO Last administered on 03/31/17 20:33; Start 03/17/17 at 21:00 Quetiapine Fumarate (SEROquel) 12.5 mg PRN DAILY PRN PO ANXIETY / AGITATION; Start 03/17/17 at 14:30 Timolol Maleate (Timoptic 0.5% Ophth) 1 drop BID OU Last administered on 20:37; Start 03/17/17 at 21:00 Bupropion HCl (Wellbutrin Xl) 150 mg DAILY PO Last administered on 03/26/17 07:50; Start 03/20/17 at 09:00; Stop 03/26/17 at 19:01; Status DC Divalproex Sodium (Depakote Sprinkles) 125 mg BID PO Last administered on 03/22 07:20; Start 03/19/17 at 21:00; Stop 03/22/17 at 15:18; Status DC Brimonidine Tartrate (Alphagan) 1 drop BID OU Last administered on 03/31/17 20 :37; Start 03/20/17 at 14:28 Potassium Chloride (Klor-Con) 40 meq 1X ONCE PO Last administered on 09:15; Start 03/21/17 at 08:15; Stop 03/21/17 at 08:16; Status DC Potassium Chloride (Klor-Con) 40 meq 1X ONCE PO Last administered on 09:17; Start 03/21/17 at 09:00; Stop 03/21/17 at 09:01; Status DC Potassium Chloride (Klor-Con) 40 meq 1X ONCE PO Last administered on 10:18; Start 03/21/17 at 10:00; Stop 03/21/17 at 10:01; Status DC Potassium Chloride (Klor-Con) 20 meq TID PO Last administered on 03/31/17 20: 33; Start 03/21/17 at 21:00 Divalproex Sodium (Depakote Sprinkles) 125 mg DAILY PO Last administered on 07:52; Start 03/23/17 at 09:00; Stop 03/23/17 at 16:23; Status DC Divalproex Sodium (Depakote Sprinkles) 250 mg HS PO Last administered on 19:17; Start 03/22/17 at 21:00; Stop 03/23/17 at 16:23; Status DC Olanzapine (ZyPREXA) 5 mg DAILY PO ; Start 03/23/17 at 09:00; Stop 03/23/17 at 09:00; Status DC Olanzapine (ZyPREXA) 5 mg DAILY@1200 PO Last administered on 03/27/17 12:05; Start 03/23/17 at 12:00; Stop 03/28/17 at 12:34; Status DC Divalproex Sodium (Depakote Sprinkles) 250 mg BID PO Last administered on 07:48; Start 03/23/17 at 21:00; Stop 03/28/17 at 12:34; Status DC Alendronate Sodium (Fosamax) 70 mg WEEKLYAC PO Last administered on 03/24/17 09:04; Start 03/24/17 at 07:00; Stop 03/31/17 at 07:51; Status DC Sertraline HCl (Zoloft) 50 mg DAILY PO Last administered on 03/31/17 09:49; Start 03/27/17 at 09:00 Dronabinol (Marinol) 2.5 mg DAILY07 PO Last administered on 03/29/17 05:26; Start 03/28/17 at 07:00; Stop 03/29/17 at 18:53; Status DC Dronabinol (Marinol) 2.5 mg STK-MED ONCE PO ; Start 03/28/17 at 06:31; Stop 03/28/17 at 06:32; Status DC Non-Formulary Medication 1 patch QMTH TP Last administered on 03/29/17 16:54; Start 03/29/17 at 16:00 Quetiapine Fumarate (SEROquel) 12.5 mg BID92 PO Last administered on 03/31/17 13:47; Start 03/28/17 at 14:00 Dronabinol (Marinol) 2.5 mg BIDWBKFT/MICAELA PO Last administered on 03/31/17 09: 50; Start 03/30/17 at 08:00 Mirtazapine (Remeron) 7.5 mg QHS PO Last administered on 03/29/17 20:33; Start 03/29/17 at 21:00; Stop 03/30/17 at 18:33; Status DC Mirtazapine (Remeron) 15 mg QHS PO Last administered on 03/31/17 20:34; Start 03/30/17 at 21:00 Trazodone HCl (Desyrel) 50 mg QHS PO Last administered on 03/30/17 23:43; Start 03/30/17 at 21:00 Trazodone HCl (Desyrel) 50 mg PRN QHS PRN PO INSOMNIA Last administered on 03/31 20:38; Start 03/30/17 at 18:45 Alendronate Sodium (Fosamax) 70 mg WEEKLYAC PO ; Start 04/01/17 at 07:00 Active Scripts Active Reported Seroquel (Quetiapine Fumarate) 25 Mg Tablet 0.5 Tab PO DAILY PRN Miralax (Polyethylene Glycol 3350) 17 Gm Powd.pack 1 Packet PO DAILY PRN Namenda (Memantine Hcl) 10 Mg Tablet 1 Tab PO BID Meclizine Hcl 12.5 Mg Tablet 1 Tab PO TID PRN Synthroid (Levothyroxine Sodium) 50 Mcg Tablet 1 Tab PO DAILY06 Xalatan (Latanoprost) 2.5 Ml Drops 1 Drop EACHEYE QHS Folic Acid 1 Mg Tablet 1 Tab PO DAILY Vivelle-Dot (Estradiol) 1 Each Patch.tdsw 1 Patch TP TWICE WEEKLY Restasis (Cyclosporine) 1 Each Droperette 1 Drop EACHEYE BID Vitamin B-12 (Cyanocobalamin (Vitamin B-12)) 1,000 Mcg Tablet 1 Tab PO DAILY Viactiv Soft Chew Tablet (Ca Carbonate/Vitamin D3/Vit K) 1 Each Tab.chew 1 Each PO DAILY Caltrate+D3 Plus Mineral Minis (Ca Carb/D3/Mag Ox/Pension Adviser/Aaron/Zn) 1 Each Tablet 1 Each PO DAILY Wellbutrin Xl (Bupropion Hcl) 300 Mg Tab.er.24h 1 Tab PO DAILY Combigan Eye Drops (Brimonidine Tartrate/Timolol) 5 Ml Drops 1 Drop OU BID Lipitor (Atorvastatin Calcium) 40 Mg Tablet 1 Tab PO DAILY Alendronate Sodium 70 Mg Tablet 1 Tab PO WEEKLY Acyclovir 200 Mg Capsule 1 Cap PO BID PRN Diagnosis: Problems: (1) Anxiety disorder (2) Impulse control disorder (3) Dementia, vascular, with depression (4) Dementia, vascular, with delusions (5) Dementia in Alzheimer's disease with depression (6) Dementia in Alzheimer's disease with delusions AMARJIT RICH MD Mar 31, 2017 23:57
[2017-04-01] MEDS: ALENDRONATE SODIUM 35 MG TABLET PO SCH (06:03)
[2017-04-01 06:36] VITALS: BP 131/79
[2017-04-01] MEDS: LEVOTHYROXINE 50 MCG TABLET PO SCH (06:44)
[2017-04-01] MEDS: DRONABINOL 2.5 MG CAPSULE PO SCH ×2 (08:10→12:57)
[2017-04-01] MEDS: FOLIC ACID 1 MG TABLET PO SCH (08:10)
[2017-04-01] MEDS: SERTRALINE 50 MG TABLET. PO SCH (08:10)
[2017-04-01] MEDS: QUEtiapine 25 MG TABLET. PO SCH ×2 (08:11→12:57)
[2017-04-01] MEDS: MEMANTINE 10 MG TABLET. PO SCH ×2 (08:11→20:00)
[2017-04-01] MEDS: POTASSIUM CHLORIDE 20 MEQ TABLET.ER. PO SCH ×3 (08:11→20:01)
[2017-04-01] MEDS: CYANOCOBALAMIN (VITAMIN B-12) 1,000 MCG TABLET. PO SCH (08:11)
[2017-04-01] MEDS: CALCIUM CARB/VIT D3 500/200 TABLET PO SCH ×3 (08:11→20:00)
[2017-04-01] MEDS: cycloSPORINE 0.05% OPTH 1 DROP DROPERETTE OU SCH ×2 (08:11→19:59)
[2017-04-01] MEDS: BRIMONIDINE 0.2% OPHTH SOLUTION 5ML BOTTLE. OU SCH ×2 (09:21→19:58)
[2017-04-01] MEDS: TIMOLOL 0.5% OPHTH SOLUTION 5ML BOTTLE. OU SCH ×2 (09:21→19:58)
[2017-04-01] MEDS: ACETAMINOPHEN 325 MG TABLET PO PRN (10:41)
[2017-04-01 16:41] VITALS: BP 103/71
--- NOTE | 2017-04-01 18:08 | PDOC ---
Exam Sourav Demential Exam: Sourav Note: Please also refer to the separate dictated note~for this date of service dictated separately.~Patient seen individually. Discussed the patient with Nursing staff reviewed the chart.~Reviewed interim history and current functioning. Reviewed vital signs,~Labs/ Radiology~and current medications noted below. Continue current treatment with the changes noted in the dictated addendum note Assessment: Vital Signs: Vital Signs Date Time Temp Pulse Resp B/P (MAP) Pulse Ox O2 Delivery O2 Flow Rate FiO2 04/01/17 16:41 98.4 63 19 103/71 (82) 97 03/29/17 16:27 Room Air I&O Intake and Output 04/02/17 07:00 Intake Total 840 ml Balance 840 ml Intake Oral 840 ml Current Medications: Meds: Current Medications Olanzapine (ZyPREXA ZYDIS) 2.5 mg PRN Q2HR PRN PO PSYCHOSIS Last administered on 03/30/17 00:55; Start 03/17/17 at 07:45 Diphenhydramine HCl (Benadryl) 50 mg PRN Q6HRS PRN PO ANXIETY/AGITATION; Start 03/17/17 at 07:45; Stop 03/17/17 at 18:21; Status DC Acetaminophen (Tylenol) 650 mg PRN Q6HRS PRN PO PAIN / TEMP Last administered on 04/01/17 10:41; Start 03/17/17 at 09:15 Multi-Ingredient Ointment (Analgesic [place]) 1 gayle PRN QID PRN TP MUSCLE PAIN; Start 03/17/17 at 09:15 Al Hydroxide/Mg Hydroxide (Mylanta Plus Xs) 15 ml PRN AFTMEALHC PRN PO DYSPEPSIA; Start 03/17/17 at 09:15 Magnesium Hydroxide (Milk Of Magnesia) 2,400 mg PRN QHS PRN PO CONSTIPATION Last administered on 03/28/17 17:11; Start 03/17/17 at 09:15 Influenza Virus Vaccine Quadrival (Fluarix Quad [id number] Syringe) 0.5 ml ONCE ONCE VAX IM ; Start 03/18/17 at 09:00; Stop 03/18/17 at 09:02; Status DC Acyclovir (Zovirax) 200 mg PRN BID PRN PO blisters; Start 03/17/17 at 14:30 Alendronate Sodium (Fosamax) 70 mg WEEKLY PO ; Start 03/24/17 at 09:00; Stop 03/24/17 at 09:00; Status DC Cyanocobalamin (Vitamin B-12) 1,000 mcg DAILY PO Last administered on 08:11; Start 03/18/17 at 09:00 Cyclosporine (Restasis) 1 drop BID OU Last administered on 04/01/17 08:11; Start 03/17/17 at 21:00 Folic Acid (Folic Acid) 1 mg DAILY PO Last administered on 04/01/17 08:10; Start 03/18/17 at 09:00 Latanoprost (Xalatan) 1 drop QHS OU Last administered on 03/31/17 09:55; Start 03/17/17 at 21:00 Levothyroxine Sodium (Synthroid) 50 mcg DAILY06 PO Last administered on 06:44; Start 03/18/17 at 06:00 Meclizine HCl (Antivert) 12.5 mg PRN TID PRN PO DIZZINESS; Start 03/17/17 at 14:30 Polyethylene Glycol (miraLAX) 17 gm PRN DAILY PRN PO CONSTIPATION; Start 03/17 at 14:30 Atorvastatin Calcium (Lipitor) 40 mg QHS PO Last administered on 03/31/17 20: 33; Start 03/17/17 at 21:00 Brimonidine Tartrate (Alphagan) 1 drop BID OU Last administered on 03/20/17 11:32; Start 03/17/17 at 21:00; Stop 03/20/17 at 14:28; Status DC Non-Formulary Medication 1 each DAILY PO ; Start 03/18/17 at 09:00; Stop 03/18 at 09:00; Status DC Calcium/Vitamin D (Oscal D 500mg/ 200uts) 1 tab BIDWMEALS PO Last administered on 04/01/17 08:11; Start 03/17/17 at 17:00 Non-Formulary Medication 1 patch TWICE WEEKLY TP ; Start 03/20/17 at 15:00; Stop 03/28/17 at 08:01; Status DC Bupropion HCl (Wellbutrin Xl) 300 mg DAILY PO Last administered on 03/19/17 08:03; Start 03/18/17 at 09:00; Stop 03/19/17 at 14:39; Status DC Memantine (Namenda) 10 mg BID PO Last administered on 04/01/17 08:11; Start 03/17/17 at 21:00 Quetiapine Fumarate (SEROquel) 12.5 mg PRN DAILY PRN PO ANXIETY / AGITATION; Start 03/17/17 at 14:30 Timolol Maleate (Timoptic 0.5% Oph) 1 drop BID OU Last administered on 09:21; Start 03/17/17 at 21:00 Bupropion HCl (Wellbutrin Xl) 150 mg DAILY PO Last administered on 03/26/17 07:50; Start 03/20/17 at 09:00; Stop 03/26/17 at 19:01; Status DC Divalproex Sodium (Depakote Sprinkles) 125 mg BID PO Last administered on 03/22 07:20; Start 03/19/17 at 21:00; Stop 03/22/17 at 15:18; Status DC Brimonidine Tartrate (Alphagan) 1 drop BID OU Last administered on 04/01/17 09 :21; Start 03/20/17 at 14:28 Potassium Chloride (Klor-Con) 40 meq 1X ONCE PO Last administered on 09:15; Start 03/21/17 at 08:15; Stop 03/21/17 at 08:16; Status DC Potassium Chloride (Klor-Con) 40 meq 1X ONCE PO Last administered on 09:17; Start 03/21/17 at 09:00; Stop 03/21/17 at 09:01; Status DC Potassium Chloride (Klor-Con) 40 meq 1X ONCE PO Last administered on 10:18; Start 03/21/17 at 10:00; Stop 03/21/17 at 10:01; Status DC Potassium Chloride (Klor-Con) 20 meq TID PO Last administered on 04/01/17 12: 57; Start 03/21/17 at 21:00 Divalproex Sodium (Depakote Sprinkles) 125 mg DAILY PO Last administered on 07:52; Start 03/23/17 at 09:00; Stop 03/23/17 at 16:23; Status DC Divalproex Sodium (Depakote Sprinkles) 250 mg HS PO Last administered on 19:17; Start 03/22/17 at 21:00; Stop 03/23/17 at 16:23; Status DC Olanzapine (ZyPREXA) 5 mg DAILY PO ; Start 03/23/17 at 09:00; Stop 03/23/17 at 09:00; Status DC Olanzapine (ZyPREXA) 5 mg DAILY@1200 PO Last administered on 03/27/17 12:05; Start 03/23/17 at 12:00; Stop 03/28/17 at 12:34; Status DC Divalproex Sodium (Depakote Sprinkles) 250 mg BID PO Last administered on 07:48; Start 03/23/17 at 21:00; Stop 03/28/17 at 12:34; Status DC Alendronate Sodium (Fosamax) 70 mg WEEKLYAC PO Last administered on 03/24/17 09:04; Start 03/24/17 at 07:00; Stop 03/31/17 at 07:51; Status DC Sertraline HCl (Zoloft) 50 mg DAILY PO Last administered on 04/01/17 08:10; Start 03/27/17 at 09:00 Dronabinol (Marinol) 2.5 mg DAILY07 PO Last administered on 03/29/17 05:26; Start 03/28/17 at 07:00; Stop 03/29/17 at 18:53; Status DC Dronabinol (Marinol) 2.5 mg STK-MED ONCE PO ; Start 03/28/17 at 06:31; Stop 03/28/17 at 06:32; Status DC Non-Formulary Medication 1 patch QMTH TP Last administered on 03/29/17 16:54; Start 03/29/17 at 16:00 Quetiapine Fumarate (SEROquel) 12.5 mg BID92 PO Last administered on 04/01/17 12:57; Start 03/28/17 at 14:00 Dronabinol (Marinol) 2.5 mg BIDWBKFT/MICAELA PO Last administered on 04/01/17 12: 57; Start 03/30/17 at 08:00 Mirtazapine (Remeron) 7.5 mg QHS PO Last administered on 03/29/17 20:33; Start 03/29/17 at 21:00; Stop 03/30/17 at 18:33; Status DC Mirtazapine (Remeron) 15 mg QHS PO Last administered on 03/31/17 20:34; Start 03/30/17 at 21:00 Trazodone HCl (Desyrel) 50 mg QHS PO Last administered on 03/30/17 23:43; Start 03/30/17 at 21:00 Trazodone HCl (Desyrel) 50 mg PRN QHS PRN PO INSOMNIA Last administered on 03/31 20:38; Start 03/30/17 at 18:45 Alendronate Sodium (Fosamax) 70 mg WEEKLYAC PO Last administered on 04/01/17 06:03; Start 04/01/17 at 07:00 Active Scripts Active Reported Seroquel (Quetiapine Fumarate) 25 Mg Tablet 0.5 Tab PO DAILY PRN Miralax (Polyethylene Glycol 3350) 17 Gm Powd.pack 1 Packet PO DAILY PRN Namenda (Memantine Hcl) 10 Mg Tablet 1 Tab PO BID Meclizine Hcl 12.5 Mg Tablet 1 Tab PO TID PRN Synthroid (Levothyroxine Sodium) 50 Mcg Tablet 1 Tab PO DAILY06 Xalatan (Latanoprost) 2.5 Ml Drops 1 Drop EACHEYE QHS Folic Acid 1 Mg Tablet 1 Tab PO DAILY Vivelle-Dot (Estradiol) 1 Each Patch.tdsw 1 Patch TP TWICE WEEKLY Restasis (Cyclosporine) 1 Each Droperette 1 Drop EACHEYE BID Vitamin B-12 (Cyanocobalamin (Vitamin B-12)) 1,000 Mcg Tablet 1 Tab PO DAILY Viactiv Soft Chew Tablet (Ca Carbonate/Vitamin D3/Vit K) 1 Each Tab.chew 1 Each PO DAILY Caltrate+D3 Plus Mineral Minis (Ca Carb/D3/Mag Ox/Run Boat Operator/Aaron/Zn) 1 Each Tablet 1 Each PO DAILY Wellbutrin Xl (Bupropion Hcl) 300 Mg Tab.er.24h 1 Tab PO DAILY Combigan Eye Drops (Brimonidine Tartrate/Timolol) 5 Ml Drops 1 Drop OU BID Lipitor (Atorvastatin Calcium) 40 Mg Tablet 1 Tab PO DAILY Alendronate Sodium 70 Mg Tablet 1 Tab PO WEEKLY Acyclovir 200 Mg Capsule 1 Cap PO BID PRN Diagnosis: Problems: (1) Dementia in Alzheimer's disease with delusions (2) Dementia in Alzheimer's disease with depression (3) Dementia, vascular, with delusions (4) Dementia, vascular, with depression (5) Impulse control disorder (6) Anxiety disorder AMARJIT RICH MD Apr 01, 2017 18:08
[2017-04-01] MEDS: LATANOPROST 0.005% OPHTH SOLUTION 2.5ML BOTTLE. OU SCH (20:00)
[2017-04-01] MEDS: traZODone 50 MG TABLET. PO SCH (20:00)
[2017-04-01] MEDS: ATORVASTATIN CALCIUM 20 MG TABLET PO SCH (20:01)
[2017-04-01] MEDS: MIRTAZAPINE 15 MG TABLET PO SCH (20:01)
[2017-04-02 06:27] VITALS: BP 119/64
[2017-04-02] MEDS: LEVOTHYROXINE 50 MCG TABLET PO SCH (06:32)
[2017-04-02] MEDS: SERTRALINE 50 MG TABLET. PO SCH (08:31)
[2017-04-02] MEDS: POTASSIUM CHLORIDE 20 MEQ TABLET.ER. PO SCH ×3 (08:31→19:51)
[2017-04-02] MEDS: BRIMONIDINE 0.2% OPHTH SOLUTION 5ML BOTTLE. OU SCH ×2 (08:31→19:52)
[2017-04-02] MEDS: MEMANTINE 10 MG TABLET. PO SCH ×2 (08:31→19:51)
[2017-04-02] MEDS: FOLIC ACID 1 MG TABLET PO SCH (08:31)
[2017-04-02] MEDS: TIMOLOL 0.5% OPHTH SOLUTION 5ML BOTTLE. OU SCH ×2 (08:31→19:52)
[2017-04-02] MEDS: cycloSPORINE 0.05% OPTH 1 DROP DROPERETTE OU SCH ×2 (08:31→19:51)
[2017-04-02] MEDS: CYANOCOBALAMIN (VITAMIN B-12) 1,000 MCG TABLET. PO SCH (08:31)
[2017-04-02] MEDS: DRONABINOL 2.5 MG CAPSULE PO SCH ×2 (08:32→12:45)
[2017-04-02] MEDS: QUEtiapine 25 MG TABLET. PO SCH ×2 (08:32→12:46)
[2017-04-02 16:06] VITALS: BP 137/84
[2017-04-02] MEDS: VIVELLE DOT TP SCH (17:19)
[2017-04-02] MEDS: CALCIUM CARB/VIT D3 500/200 TABLET PO SCH (17:19)
[2017-04-02] MEDS: ATORVASTATIN CALCIUM 20 MG TABLET PO SCH (19:50)
[2017-04-02] MEDS: traZODone 50 MG TABLET. PO SCH (19:51)
[2017-04-02] MEDS: MIRTAZAPINE 15 MG TABLET PO SCH (19:51)
[2017-04-02] MEDS: LATANOPROST 0.005% OPHTH SOLUTION 2.5ML BOTTLE. OU SCH (19:53)
--- NOTE | 2017-04-02 20:07 | PDOC ---
Exam Sourav Demential Exam: Sourav Note: Please also refer to the separate dictated note~for this date of service dictated separately.~Patient seen individually. Discussed the patient with Nursing staff reviewed the chart.~Reviewed interim history and current functioning. Reviewed vital signs,~Labs/ Radiology~and current medications noted below. Continue current treatment with the changes noted in the dictated addendum note Assessment: Vital Signs: Vital Signs Date Time Temp Pulse Resp B/P (MAP) Pulse Ox O2 Delivery O2 Flow Rate FiO2 04/02/17 16:06 98.2 68 16 137/84 (101) 98 03/29/17 16:27 Room Air I&O Intake and Output 04/03/17 07:00 Intake Total 600 ml Balance 600 ml Intake Oral 600 ml Current Medications: Meds: Current Medications Olanzapine (ZyPREXA ZYDIS) 2.5 mg PRN Q2HR PRN PO PSYCHOSIS Last administered on 03/30/17 00:55; Start 03/17/17 at 07:45 Diphenhydramine HCl (Benadryl) 50 mg PRN Q6HRS PRN PO ANXIETY/AGITATION; Start 03/17/17 at 07:45; Stop 03/17/17 at 18:21; Status DC Acetaminophen (Tylenol) 650 mg PRN Q6HRS PRN PO PAIN / TEMP Last administered on 04/01/17 10:41; Start 03/17/17 at 09:15 Multi-Ingredient Ointment (Analgesic [place]) 1 gayle PRN QID PRN TP MUSCLE PAIN; Start 03/17/17 at 09:15 Al Hydroxide/Mg Hydroxide (Mylanta Plus Xs) 15 ml PRN AFTMEALHC PRN PO DYSPEPSIA; Start 03/17/17 at 09:15 Magnesium Hydroxide (Milk Of Magnesia) 2,400 mg PRN QHS PRN PO CONSTIPATION Last administered on 03/28/17 17:11; Start 03/17/17 at 09:15 Influenza Virus Vaccine Quadrival (Fluarix Quad [id number] Syringe) 0.5 ml ONCE ONCE VAX IM ; Start 03/18/17 at 09:00; Stop 03/18/17 at 09:02; Status DC Acyclovir (Zovirax) 200 mg PRN BID PRN PO blisters; Start 03/17/17 at 14:30 Alendronate Sodium (Fosamax) 70 mg WEEKLY PO ; Start 03/24/17 at 09:00; Stop 03/24/17 at 09:00; Status DC Cyanocobalamin (Vitamin B-12) 1,000 mcg DAILY PO Last administered on 08:31; Start 03/18/17 at 09:00 Cyclosporine (Restasis) 1 drop BID OU Last administered on 04/02/17 19:51; Start 03/17/17 at 21:00 Folic Acid (Folic Acid) 1 mg DAILY PO Last administered on 04/02/17 08:31; Start 03/18/17 at 09:00 Latanoprost (Xalatan) 1 drop QHS OU Last administered on 04/02/17 19:53; Start 03/17/17 at 21:00 Levothyroxine Sodium (Synthroid) 50 mcg DAILY06 PO Last administered on 06:32; Start 03/18/17 at 06:00 Meclizine HCl (Antivert) 12.5 mg PRN TID PRN PO DIZZINESS; Start 03/17/17 at 14:30 Polyethylene Glycol (miraLAX) 17 gm PRN DAILY PRN PO CONSTIPATION; Start 03/17 at 14:30 Atorvastatin Calcium (Lipitor) 40 mg QHS PO Last administered on 04/02/17 19: 50; Start 03/17/17 at 21:00 Brimonidine Tartrate (Alphagan) 1 drop BID OU Last administered on 03/20/17 11:32; Start 03/17/17 at 21:00; Stop 03/20/17 at 14:28; Status DC Non-Formulary Medication 1 each DAILY PO ; Start 03/18/17 at 09:00; Stop 03/18 at 09:00; Status DC Calcium/Vitamin D (Oscal D 500mg/ 200uts) 1 tab BIDWMEALS PO Last administered on 04/02/17 17:19; Start 03/17/17 at 17:00 Non-Formulary Medication 1 patch TWICE WEEKLY TP ; Start 03/20/17 at 15:00; Stop 03/28/17 at 08:01; Status DC Bupropion HCl (Wellbutrin Xl) 300 mg DAILY PO Last administered on 03/19/17 08:03; Start 03/18/17 at 09:00; Stop 03/19/17 at 14:39; Status DC Memantine (Namenda) 10 mg BID PO Last administered on 04/02/17 19:51; Start 03/17/17 at 21:00 Quetiapine Fumarate (SEROquel) 12.5 mg PRN DAILY PRN PO ANXIETY / AGITATION; Start 03/17/17 at 14:30 Timolol Maleate (Timoptic 0.5% Oph) 1 drop BID OU Last administered on 19:52; Start 03/17/17 at 21:00 Bupropion HCl (Wellbutrin Xl) 150 mg DAILY PO Last administered on 03/26/17 07:50; Start 03/20/17 at 09:00; Stop 03/26/17 at 19:01; Status DC Divalproex Sodium (Depakote Sprinkles) 125 mg BID PO Last administered on 03/22 07:20; Start 03/19/17 at 21:00; Stop 03/22/17 at 15:18; Status DC Brimonidine Tartrate (Alphagan) 1 drop BID OU Last administered on 04/02/17 19 :52; Start 03/20/17 at 14:28 Potassium Chloride (Klor-Con) 40 meq 1X ONCE PO Last administered on 09:15; Start 03/21/17 at 08:15; Stop 03/21/17 at 08:16; Status DC Potassium Chloride (Klor-Con) 40 meq 1X ONCE PO Last administered on 09:17; Start 03/21/17 at 09:00; Stop 03/21/17 at 09:01; Status DC Potassium Chloride (Klor-Con) 40 meq 1X ONCE PO Last administered on 10:18; Start 03/21/17 at 10:00; Stop 03/21/17 at 10:01; Status DC Potassium Chloride (Klor-Con) 20 meq TID PO Last administered on 04/02/17 19: 51; Start 03/21/17 at 21:00 Divalproex Sodium (Depakote Sprinkles) 125 mg DAILY PO Last administered on 07:52; Start 03/23/17 at 09:00; Stop 03/23/17 at 16:23; Status DC Divalproex Sodium (Depakote Sprinkles) 250 mg HS PO Last administered on 19:17; Start 03/22/17 at 21:00; Stop 03/23/17 at 16:23; Status DC Olanzapine (ZyPREXA) 5 mg DAILY PO ; Start 03/23/17 at 09:00; Stop 03/23/17 at 09:00; Status DC Olanzapine (ZyPREXA) 5 mg DAILY@1200 PO Last administered on 03/27/17 12:05; Start 03/23/17 at 12:00; Stop 03/28/17 at 12:34; Status DC Divalproex Sodium (Depakote Sprinkles) 250 mg BID PO Last administered on 07:48; Start 03/23/17 at 21:00; Stop 03/28/17 at 12:34; Status DC Alendronate Sodium (Fosamax) 70 mg WEEKLYAC PO Last administered on 03/24/17 09:04; Start 03/24/17 at 07:00; Stop 03/31/17 at 07:51; Status DC Sertraline HCl (Zoloft) 50 mg DAILY PO Last administered on 04/02/17 08:31; Start 03/27/17 at 09:00; Stop 04/02/17 at 18:41; Status DC Dronabinol (Marinol) 2.5 mg DAILY07 PO Last administered on 03/29/17 05:26; Start 03/28/17 at 07:00; Stop 03/29/17 at 18:53; Status DC Dronabinol (Marinol) 2.5 mg STK-MED ONCE PO ; Start 03/28/17 at 06:31; Stop 03/28/17 at 06:32; Status DC Non-Formulary Medication 1 patch QMTH TP Last administered on 04/02/17 17:19; Start 03/29/17 at 16:00 Quetiapine Fumarate (SEROquel) 12.5 mg BID92 PO Last administered on 04/02/17 12:46; Start 03/28/17 at 14:00 Dronabinol (Marinol) 2.5 mg BIDWBKFT/MICAELA PO Last administered on 04/02/17 12: 45; Start 03/30/17 at 08:00 Mirtazapine (Remeron) 7.5 mg QHS PO Last administered on 03/29/17 20:33; Start 03/29/17 at 21:00; Stop 03/30/17 at 18:33; Status DC Mirtazapine (Remeron) 15 mg QHS PO Last administered on 04/02/17 19:51; Start 03/30/17 at 21:00 Trazodone HCl (Desyrel) 50 mg QHS PO Last administered on 04/02/17 19:51; Start 03/30/17 at 21:00 Trazodone HCl (Desyrel) 50 mg PRN QHS PRN PO INSOMNIA Last administered on 03/31 20:38; Start 03/30/17 at 18:45 Alendronate Sodium (Fosamax) 70 mg WEEKLYAC PO Last administered on 04/01/17 06:03; Start 04/01/17 at 07:00 Sertraline HCl (Zoloft) 75 mg DAILY PO ; Start 04/03/17 at 09:00 Active Scripts Active Reported Seroquel (Quetiapine Fumarate) 25 Mg Tablet 0.5 Tab PO DAILY PRN Miralax (Polyethylene Glycol 3350) 17 Gm Powd.pack 1 Packet PO DAILY PRN Namenda (Memantine Hcl) 10 Mg Tablet 1 Tab PO BID Meclizine Hcl 12.5 Mg Tablet 1 Tab PO TID PRN Synthroid (Levothyroxine Sodium) 50 Mcg Tablet 1 Tab PO DAILY06 Xalatan (Latanoprost) 2.5 Ml Drops 1 Drop EACHEYE QHS Folic Acid 1 Mg Tablet 1 Tab PO DAILY Vivelle-Dot (Estradiol) 1 Each Patch.tdsw 1 Patch TP TWICE WEEKLY Restasis (Cyclosporine) 1 Each Droperette 1 Drop EACHEYE BID Vitamin B-12 (Cyanocobalamin (Vitamin B-12)) 1,000 Mcg Tablet 1 Tab PO DAILY Viactiv Soft Chew Tablet (Ca Carbonate/Vitamin D3/Vit K) 1 Each Tab.chew 1 Each PO DAILY Caltrate+D3 Plus Mineral Minis (Ca Carb/D3/Mag Ox/Fast [employer]/Aaron/Zn) 1 Each Tablet 1 Each PO DAILY Wellbutrin Xl (Bupropion Hcl) 300 Mg Tab.er.24h 1 Tab PO DAILY Combigan Eye Drops (Brimonidine Tartrate/Timolol) 5 Ml Drops 1 Drop OU BID Lipitor (Atorvastatin Calcium) 40 Mg Tablet 1 Tab PO DAILY Alendronate Sodium 70 Mg Tablet 1 Tab PO WEEKLY Acyclovir 200 Mg Capsule 1 Cap PO BID PRN Diagnosis: Problems: (1) Anxiety disorder (2) Impulse control disorder (3) Dementia, vascular, with depression (4) Dementia, vascular, with delusions (5) Dementia in Alzheimer's disease with depression (6) Dementia in Alzheimer's disease with delusions AMARJIT RICH MD Apr 02, 2017 20:07
--- NOTE | 2017-04-03 00:33 | PN ---
DATE: 03/31/2017 PSYCHIATRIC PROGRESS NOTE This is a late entry for 03/31/2017, covers elements not covered in my initial note of 03/31/2017. SUBJECTIVE: I met with the patient the evening of 03/31/2017. The patient has been more awake, alert since Depakote was discontinued. She attempts to walk by herself, was ambulated by nursing staff with assistance. Appetite is better. REVIEW OF SYSTEMS: Ambulation impaired. No CV, , pulmonary, eye, ENT system symptoms on review. Reliability poor. MENTAL STATUS EXAM: Oriented to herself. Insight, judgment, recent and remote memory, attention, concentration, fund of knowledge poor, consistent with her diagnoses mentioned in my initial note. PLAN: Continue current psychotropics. Reviewed drug interactions. Risk/benefit ratio favors no further change. MAN Maryam RICH MD DR: SHANNON/deidra JOB#: [id number] / [id number]
[2017-04-03] MEDS: LEVOTHYROXINE 50 MCG TABLET PO SCH (05:40)
--- NOTE | 2017-04-03 06:12 | PN ---
DATE: 04/01/2017 PSYCHIATRIC PROGRESS NOTE This late entry date of service 04/01/2017 covers elements, not covered in my initial note of 04/01/2017. I met with the patient in the evening of 04/01/2017. Overall, the patient is attempting to walk on her own. Gait is a little more steady since Depakote was discontinued and she has ambulated with nursing staff. REVIEW OF SYSTEMS: Despite this ambulation impaired, no CV, , pulmonary, eye, ENT system symptoms on review. Reliability poor. She is quite disorganized, as I met with her individually talking about her children being 2 and 3 years old. MENTAL STATUS EXAM: Insight, judgment, recent and remote memory, attention, concentration, fund of knowledge poor, consistent with her diagnosis mentioned in my initial note. PLAN: Continue current psychotropics. Reviewed drug interactions. Risk/benefit ratio favors no further change. MAN Maryam RICH MD DR: SHANNON/deidra JOB#: [id number] / [id number]
[2017-04-03 06:54] VITALS: BP 109/76
[2017-04-03] MEDS: POTASSIUM CHLORIDE 20 MEQ TABLET.ER. PO SCH ×3 (08:19→19:58)
[2017-04-03] MEDS: FOLIC ACID 1 MG TABLET PO SCH (08:19)
[2017-04-03] MEDS: MEMANTINE 10 MG TABLET. PO SCH ×2 (08:19→19:58)
[2017-04-03] MEDS: CALCIUM CARB/VIT D3 500/200 TABLET PO SCH ×2 (08:19→17:10)
[2017-04-03] MEDS: CYANOCOBALAMIN (VITAMIN B-12) 1,000 MCG TABLET. PO SCH (08:19)
[2017-04-03] MEDS: cycloSPORINE 0.05% OPTH 1 DROP DROPERETTE OU SCH ×2 (08:20→19:57)
[2017-04-03] MEDS: TIMOLOL 0.5% OPHTH SOLUTION 5ML BOTTLE. OU SCH ×2 (08:20→19:56)
[2017-04-03] MEDS: BRIMONIDINE 0.2% OPHTH SOLUTION 5ML BOTTLE. OU SCH ×2 (08:20→19:56)
[2017-04-03] MEDS: QUEtiapine 25 MG TABLET. PO SCH ×2 (08:20→14:45)
[2017-04-03] MEDS: LATANOPROST 0.005% OPHTH SOLUTION 2.5ML BOTTLE. OU SCH ×2 (08:20→19:57)
[2017-04-03] MEDS: SERTRALINE 50 MG TABLET. PO SCH (08:23)
[2017-04-03] MEDS: DRONABINOL 2.5 MG CAPSULE PO SCH ×2 (08:23→11:46)
[2017-04-03] MEDS: ACETAMINOPHEN 325 MG TABLET PO PRN (10:24)
[2017-04-03 16:44] VITALS: BP 92/62
[2017-04-03] MEDS: MAGNESIUM HYDROXIDE 2,400 MG/30 ML ORAL.SUSP. PO PRN (17:10)
[2017-04-03] MEDS: ATORVASTATIN CALCIUM 20 MG TABLET PO SCH (19:57)
[2017-04-03] MEDS: MIRTAZAPINE 15 MG TABLET PO SCH (19:58)
[2017-04-03] MEDS: traZODone 50 MG TABLET. PO SCH (19:58)
--- NOTE | 2017-04-03 21:51 | PDOC ---
Exam Sourav Demential Exam: Sourav Note: Please also refer to the separate dictated note~for this date of service dictated separately.~Patient seen individually. Discussed the patient with Nursing staff reviewed the chart.~Reviewed interim history and current functioning. Reviewed vital signs,~Labs/ Radiology~and current medications noted below. Continue current treatment with the changes noted in the dictated addendum note Assessment: Vital Signs: Vital Signs Date Time Temp Pulse Resp B/P (MAP) Pulse Ox O2 Delivery O2 Flow Rate FiO2 04/03/17 16:44 97.4 80 18 92/62 (72) 100 03/29/17 16:27 Room Air I&O Intake and Output 04/04/17 07:00 Intake Total 720 ml Balance 720 ml Intake Oral 720 ml Current Medications: Meds: Current Medications Olanzapine (ZyPREXA ZYDIS) 2.5 mg PRN Q2HR PRN PO PSYCHOSIS Last administered on 03/30/17 00:55; Start 03/17/17 at 07:45 Diphenhydramine HCl (Benadryl) 50 mg PRN Q6HRS PRN PO ANXIETY/AGITATION; Start 03/17/17 at 07:45; Stop 03/17/17 at 18:21; Status DC Acetaminophen (Tylenol) 650 mg PRN Q6HRS PRN PO PAIN / TEMP Last administered on 04/03/17 10:24; Start 03/17/17 at 09:15 Multi-Ingredient Ointment (Analgesic [place]) 1 gayle PRN QID PRN TP MUSCLE PAIN; Start 03/17/17 at 09:15 Al Hydroxide/Mg Hydroxide (Mylanta Plus Xs) 15 ml PRN AFTMEALHC PRN PO DYSPEPSIA; Start 03/17/17 at 09:15 Magnesium Hydroxide (Milk Of Magnesia) 2,400 mg PRN QHS PRN PO CONSTIPATION Last administered on 04/03/17 17:10; Start 03/17/17 at 09:15 Influenza Virus Vaccine Quadrival (Fluarix Quad [id number] Syringe) 0.5 ml ONCE ONCE VAX IM ; Start 03/18/17 at 09:00; Stop 03/18/17 at 09:02; Status DC Acyclovir (Zovirax) 200 mg PRN BID PRN PO blisters; Start 03/17/17 at 14:30 Alendronate Sodium (Fosamax) 70 mg WEEKLY PO ; Start 03/24/17 at 09:00; Stop 03/24/17 at 09:00; Status DC Cyanocobalamin (Vitamin B-12) 1,000 mcg DAILY PO Last administered on 08:19; Start 03/18/17 at 09:00 Cyclosporine (Restasis) 1 drop BID OU Last administered on 04/03/17 19:57; Start 03/17/17 at 21:00 Folic Acid (Folic Acid) 1 mg DAILY PO Last administered on 04/03/17 08:19; Start 03/18/17 at 09:00 Latanoprost (Xalatan) 1 drop QHS OU Last administered on 04/03/17 19:57; Start 03/17/17 at 21:00 Levothyroxine Sodium (Synthroid) 50 mcg DAILY06 PO Last administered on 05:40; Start 03/18/17 at 06:00 Meclizine HCl (Antivert) 12.5 mg PRN TID PRN PO DIZZINESS; Start 03/17/17 at 14:30 Polyethylene Glycol (miraLAX) 17 gm PRN DAILY PRN PO CONSTIPATION; Start 03/17 at 14:30 Atorvastatin Calcium (Lipitor) 40 mg QHS PO Last administered on 04/03/17 19: 57; Start 03/17/17 at 21:00 Brimonidine Tartrate (Alphagan) 1 drop BID OU Last administered on 03/20/17 11:32; Start 03/17/17 at 21:00; Stop 03/20/17 at 14:28; Status DC Non-Formulary Medication 1 each DAILY PO ; Start 03/18/17 at 09:00; Stop 03/18 at 09:00; Status DC Calcium/Vitamin D (Oscal D 500mg/ 200uts) 1 tab BIDWMEALS PO Last administered on 04/03/17 17:10; Start 03/17/17 at 17:00 Non-Formulary Medication 1 patch TWICE WEEKLY TP ; Start 03/20/17 at 15:00; Stop 03/28/17 at 08:01; Status DC Bupropion HCl (Wellbutrin Xl) 300 mg DAILY PO Last administered on 03/19/17 08:03; Start 03/18/17 at 09:00; Stop 03/19/17 at 14:39; Status DC Memantine (Namenda) 10 mg BID PO Last administered on 04/03/17 19:58; Start 03/17/17 at 21:00 Quetiapine Fumarate (SEROquel) 12.5 mg PRN DAILY PRN PO ANXIETY / AGITATION; Start 03/17/17 at 14:30 Timolol Maleate (Timoptic 0.5% Oph) 1 drop BID OU Last administered on 19:56; Start 03/17/17 at 21:00 Bupropion HCl (Wellbutrin Xl) 150 mg DAILY PO Last administered on 03/26/17 07:50; Start 03/20/17 at 09:00; Stop 03/26/17 at 19:01; Status DC Divalproex Sodium (Depakote Sprinkles) 125 mg BID PO Last administered on 03/22 07:20; Start 03/19/17 at 21:00; Stop 03/22/17 at 15:18; Status DC Brimonidine Tartrate (Alphagan) 1 drop BID OU Last administered on 04/03/17 19 :56; Start 03/20/17 at 14:28 Potassium Chloride (Klor-Con) 40 meq 1X ONCE PO Last administered on 09:15; Start 03/21/17 at 08:15; Stop 03/21/17 at 08:16; Status DC Potassium Chloride (Klor-Con) 40 meq 1X ONCE PO Last administered on 09:17; Start 03/21/17 at 09:00; Stop 03/21/17 at 09:01; Status DC Potassium Chloride (Klor-Con) 40 meq 1X ONCE PO Last administered on 10:18; Start 03/21/17 at 10:00; Stop 03/21/17 at 10:01; Status DC Potassium Chloride (Klor-Con) 20 meq TID PO Last administered on 04/03/17 19: 58; Start 03/21/17 at 21:00 Divalproex Sodium (Depakote Sprinkles) 125 mg DAILY PO Last administered on 07:52; Start 03/23/17 at 09:00; Stop 03/23/17 at 16:23; Status DC Divalproex Sodium (Depakote Sprinkles) 250 mg HS PO Last administered on 19:17; Start 03/22/17 at 21:00; Stop 03/23/17 at 16:23; Status DC Olanzapine (ZyPREXA) 5 mg DAILY PO ; Start 03/23/17 at 09:00; Stop 03/23/17 at 09:00; Status DC Olanzapine (ZyPREXA) 5 mg DAILY@1200 PO Last administered on 03/27/17 12:05; Start 03/23/17 at 12:00; Stop 03/28/17 at 12:34; Status DC Divalproex Sodium (Depakote Sprinkles) 250 mg BID PO Last administered on 07:48; Start 03/23/17 at 21:00; Stop 03/28/17 at 12:34; Status DC Alendronate Sodium (Fosamax) 70 mg WEEKLYAC PO Last administered on 03/24/17 09:04; Start 03/24/17 at 07:00; Stop 03/31/17 at 07:51; Status DC Sertraline HCl (Zoloft) 50 mg DAILY PO Last administered on 04/02/17 08:31; Start 03/27/17 at 09:00; Stop 04/02/17 at 18:41; Status DC Dronabinol (Marinol) 2.5 mg DAILY07 PO Last administered on 03/29/17 05:26; Start 03/28/17 at 07:00; Stop 03/29/17 at 18:53; Status DC Dronabinol (Marinol) 2.5 mg STK-MED ONCE PO ; Start 03/28/17 at 06:31; Stop 03/28/17 at 06:32; Status DC Non-Formulary Medication 1 patch QMTH TP Last administered on 04/02/17 17:19; Start 03/29/17 at 16:00 Quetiapine Fumarate (SEROquel) 12.5 mg BID92 PO Last administered on 04/03/17 14:45; Start 03/28/17 at 14:00 Dronabinol (Marinol) 2.5 mg BIDWBKFT/MICAELA PO Last administered on 04/03/17 11: 46; Start 03/30/17 at 08:00 Mirtazapine (Remeron) 7.5 mg QHS PO Last administered on 03/29/17 20:33; Start 03/29/17 at 21:00; Stop 03/30/17 at 18:33; Status DC Mirtazapine (Remeron) 15 mg QHS PO Last administered on 04/03/17 19:58; Start 03/30/17 at 21:00 Trazodone HCl (Desyrel) 50 mg QHS PO Last administered on 04/03/17 19:58; Start 03/30/17 at 21:00 Trazodone HCl (Desyrel) 50 mg PRN QHS PRN PO INSOMNIA Last administered on 03/31 20:38; Start 03/30/17 at 18:45 Alendronate Sodium (Fosamax) 70 mg WEEKLYAC PO Last administered on 04/01/17 06:03; Start 04/01/17 at 07:00 Sertraline HCl (Zoloft) 75 mg DAILY PO Last administered on 04/03/17 08:23; Start 04/03/17 at 09:00 Active Scripts Active Reported Seroquel (Quetiapine Fumarate) 25 Mg Tablet 0.5 Tab PO DAILY PRN Miralax (Polyethylene Glycol 3350) 17 Gm Powd.pack 1 Packet PO DAILY PRN Namenda (Memantine Hcl) 10 Mg Tablet 1 Tab PO BID Meclizine Hcl 12.5 Mg Tablet 1 Tab PO TID PRN Synthroid (Levothyroxine Sodium) 50 Mcg Tablet 1 Tab PO DAILY06 Xalatan (Latanoprost) 2.5 Ml Drops 1 Drop EACHEYE QHS Folic Acid 1 Mg Tablet 1 Tab PO DAILY Vivelle-Dot (Estradiol) 1 Each Patch.tdsw 1 Patch TP TWICE WEEKLY Restasis (Cyclosporine) 1 Each Droperette 1 Drop EACHEYE BID Vitamin B-12 (Cyanocobalamin (Vitamin B-12)) 1,000 Mcg Tablet 1 Tab PO DAILY Viactiv Soft Chew Tablet (Ca Carbonate/Vitamin D3/Vit K) 1 Each Tab.chew 1 Each PO DAILY Caltrate+D3 Plus Mineral Minis (Ca Carb/D3/Mag Ox/L[employer]ographic Press Feeder/Aaron/Zn) 1 Each Tablet 1 Each PO DAILY Wellbutrin Xl (Bupropion Hcl) 300 Mg Tab.er.24h 1 Tab PO DAILY Combigan Eye Drops (Brimonidine Tartrate/Timolol) 5 Ml Drops 1 Drop OU BID Lipitor (Atorvastatin Calcium) 40 Mg Tablet 1 Tab PO DAILY Alendronate Sodium 70 Mg Tablet 1 Tab PO WEEKLY Acyclovir 200 Mg Capsule 1 Cap PO BID PRN Diagnosis: Problems: (1) Anxiety disorder (2) Impulse control disorder (3) Dementia, vascular, with depression (4) Dementia, vascular, with delusions (5) Dementia in Alzheimer's disease with depression (6) Dementia in Alzheimer's disease with delusions AMARJIT RICH MD Apr 03, 2017 21:51
[2017-04-04] MEDS: LEVOTHYROXINE 50 MCG TABLET PO SCH (05:44)
[2017-04-04 06:23] VITALS: BP 114/75
--- NOTE | 2017-04-04 07:56 | PN ---
DATE: 04/02/2017 This is a late entry for date of service 04/02/2017 and covers elements not covered in my initial note of 04/02/2017. Overall, the patient has been pleasant, confused, slept 7-3/4 hours previous evening, more alert, no hallucinations noted. Not trying to walk on her own, but if gait is steadier and compliant with medications, drowsy at times. visited and is happy with her progress. REVIEW OF SYSTEMS: Ambulation impaired, in wheelchair. No CV, , pulmonary, eye, ENT system symptoms on review. Reliability poor. MENTAL STATUS EXAM: Oriented to herself. Insight, judgment, recent and remote memory, attention, concentration, fund of knowledge poor, consistent with her diagnoses. As I met with her, she was talking about her two children in her teenage years, somewhat confused. LABORATORY DATA: Reviewed. IMPRESSION: Unchanged from initial note. PLAN: Increase Zoloft from 50 mg a day to 75 mg a day. Continue rest unchanged. Reviewed drug contractions, risk/benefit ratio favors no further change. AMARJIT RICH MD DR: SHANNON/deidra JOB#: [id number] / [id number]
[2017-04-04] MEDS: SERTRALINE 50 MG TABLET. PO SCH (08:27)
[2017-04-04] MEDS: MEMANTINE 10 MG TABLET. PO SCH ×2 (08:28→19:38)
[2017-04-04] MEDS: QUEtiapine 25 MG TABLET. PO SCH ×2 (08:28→13:09)
[2017-04-04] MEDS: CYANOCOBALAMIN (VITAMIN B-12) 1,000 MCG TABLET. PO SCH (08:28)
[2017-04-04] MEDS: POTASSIUM CHLORIDE 20 MEQ TABLET.ER. PO SCH ×3 (08:29→19:37)
[2017-04-04] MEDS: CALCIUM CARB/VIT D3 500/200 TABLET PO SCH ×2 (08:29→16:57)
[2017-04-04] MEDS: FOLIC ACID 1 MG TABLET PO SCH (08:29)
[2017-04-04] MEDS: TIMOLOL 0.5% OPHTH SOLUTION 5ML BOTTLE. OU SCH ×2 (08:31→19:40)
[2017-04-04] MEDS: BRIMONIDINE 0.2% OPHTH SOLUTION 5ML BOTTLE. OU SCH ×2 (08:31→19:40)
[2017-04-04] MEDS: cycloSPORINE 0.05% OPTH 1 DROP DROPERETTE OU SCH ×2 (08:31→19:37)
[2017-04-04] MEDS: DRONABINOL 2.5 MG CAPSULE PO SCH ×2 (08:31→13:08)
[2017-04-04 10:03] LABS: BASO # 0.1 x10^3/uL (0.0-0.2); BASO % 1 % (0-3); EOS # 0.2 x10^3/uL (0.0-0.7); EOS % 2 % (0-3); HEMATOCRIT 40.4 % (36.0-47.0); HEMOGLOBIN 13.6 g/dL (12.0-15.5); LYMPH # 1.3 x10^3/uL (1.0-4.8); LYMPH % 13 % (24-48); MEAN CORPUSCULAR HEMOGLOBIN 31 pg (25-35); MEAN CORPUSCULAR HGB CONC 34 g/dL (31-37); MEAN CORPUSCULAR VOLUME 91 fL (79-100); MONO # 0.8 x10^3/uL (0.0-1.1); MONO % 8 % (0-9); NEUT # 7.8 x10^3uL (1.8-7.7); NEUT % 77 % (31-73); PLATELET COUNT 253 x10^3/uL (140-400); RED BLOOD COUNT 4.42 x10^6/uL (3.50-5.40); RED CELL DISTRIBUTION WIDTH 13.5 % (11.5-14.5); WHITE BLOOD COUNT 10.1 x10^3/uL (4.0-11.0)
[2017-04-04 10:10] LABS: ALBUMIN 3.1 g/dL (3.4-5.0); GFR 54.5; POTASSIUM 4.4 mmol/L (3.5-5.1); TOTAL BILIRUBIN 0.2 mg/dL (0.2-1.0); TOTAL PROTEIN 6.2 g/dL (6.4-8.2)
[2017-04-04] MEDS: MAGNESIUM HYDROXIDE 2,400 MG/30 ML ORAL.SUSP. PO PRN (10:52)
[2017-04-04 16:39] VITALS: BP 103/69
[2017-04-04] MEDS: ATORVASTATIN CALCIUM 20 MG TABLET PO SCH (19:37)
[2017-04-04] MEDS: traZODone 50 MG TABLET. PO SCH (19:37)
[2017-04-04] MEDS: MIRTAZAPINE 15 MG TABLET PO SCH (19:37)
[2017-04-04] MEDS: LATANOPROST 0.005% OPHTH SOLUTION 2.5ML BOTTLE. OU SCH (19:41)
--- NOTE | 2017-04-04 21:52 | PDOC ---
Exam Sourav Demential Exam: Sourav Note: Please also refer to the separate dictated note~for this date of service dictated separately.~Patient seen individually. Discussed the patient with Nursing staff reviewed the chart.~Reviewed interim history and current functioning. Reviewed vital signs,~Labs/ Radiology~and current medications noted below. Continue current treatment with the changes noted in the dictated addendum note Assessment: Vital Signs: Vital Signs Date Time Temp Pulse Resp B/P (MAP) Pulse Ox O2 Delivery O2 Flow Rate FiO2 04/04/17 16:39 97.5 67 18 103/69 (80) 99 Room Air I&O Intake and Output 04/05/17 07:00 Intake Total 840 ml Balance 840 ml Intake Oral 840 ml Labs: Laboratory Tests Test 04/04/17 09:14 White Blood Count 10.1 x10^3/uL (4.0-11.0) Red Blood Count 4.42 x10^6/uL (3.50-5.40) Hemoglobin 13.6 g/dL (12.0-15.5) Hematocrit 40.4 % (36.0-47.0) Mean Corpuscular Volume 91 fL (79-100) Mean Corpuscular Hemoglobin 31 pg (25-35) Mean Corpuscular Hemoglobin Concent 34 g/dL (31-37) Red Cell Distribution Width 13.5 % (11.5-14.5) Platelet Count 253 x10^3/uL (140-400) Neutrophils (%) (Auto) 77 % (31-73) H Lymphocytes (%) (Auto) 13 % (24-48) L Monocytes (%) (Auto) 8 % (0-9) Eosinophils (%) (Auto) 2 % (0-3) Basophils (%) (Auto) 1 % (0-3) Neutrophils # (Auto) 7.8 x10^3uL (1.8-7.7) H Lymphocytes # (Auto) 1.3 x10^3/uL (1.0-4.8) Monocytes # (Auto) 0.8 x10^3/uL (0.0-1.1) Eosinophils # (Auto) 0.2 x10^3/uL (0.0-0.7) Basophils # (Auto) 0.1 x10^3/uL (0.0-0.2) Sodium Level 141 mmol/L (136-145) Potassium Level 4.4 mmol/L (3.5-5.1) Chloride Level 105 mmol/L (98-107) Carbon Dioxide Level 31 mmol/L (21-32) Anion Gap 5 (6-14) L Blood Urea Nitrogen 21 mg/dL (7-20) H Creatinine 1.0 mg/dL (0.6-1.0) Estimated GFR (Cockcroft-Gault) 54.5 BUN/Creatinine Ratio 21 (6-20) H Glucose Level 114 mg/dL (70-99) H Calcium Level 9.0 mg/dL (8.5-10.1) Total Bilirubin 0.2 mg/dL (0.2-1.0) Aspartate Amino Transferase (AST) 19 U/L (15-37) Alanine Aminotransferase (ALT) 21 U/L (14-59) Alkaline Phosphatase 85 U/L (46-116) Total Protein 6.2 g/dL (6.4-8.2) L Albumin 3.1 g/dL (3.4-5.0) L Albumin/Globulin Ratio 1.0 (1.0-1.7) Current Medications: Meds: Current Medications Olanzapine (ZyPREXA ZYDIS) 2.5 mg PRN Q2HR PRN PO PSYCHOSIS Last administered on 03/30/17 00:55; Start 03/17/17 at 07:45 Diphenhydramine HCl (Benadryl) 50 mg PRN Q6HRS PRN PO ANXIETY/AGITATION; Start 03/17/17 at 07:45; Stop 03/17/17 at 18:21; Status DC Acetaminophen (Tylenol) 650 mg PRN Q6HRS PRN PO PAIN / TEMP Last administered on 04/03/17 10:24; Start 03/17/17 at 09:15 Multi-Ingredient Ointment (Analgesic [place]) 1 gayle PRN QID PRN TP MUSCLE PAIN; Start 03/17/17 at 09:15 Al Hydroxide/Mg Hydroxide (Mylanta Plus Xs) 15 ml PRN AFTMEALHC PRN PO DYSPEPSIA; Start 03/17/17 at 09:15 Magnesium Hydroxide (Milk Of Magnesia) 2,400 mg PRN QHS PRN PO CONSTIPATION Last administered on 04/04/17 10:52; Start 03/17/17 at 09:15 Influenza Virus Vaccine Quadrival (Fluarix Quad [id number] Syringe) 0.5 ml ONCE ONCE VAX IM ; Start 03/18/17 at 09:00; Stop 03/18/17 at 09:02; Status DC Acyclovir (Zovirax) 200 mg PRN BID PRN PO blisters; Start 03/17/17 at 14:30 Alendronate Sodium (Fosamax) 70 mg WEEKLY PO ; Start 03/24/17 at 09:00; Stop 03/24/17 at 09:00; Status DC Cyanocobalamin (Vitamin B-12) 1,000 mcg DAILY PO Last administered on 08:28; Start 03/18/17 at 09:00 Cyclosporine (Restasis) 1 drop BID OU Last administered on 04/04/17 19:37; Start 03/17/17 at 21:00 Folic Acid (Folic Acid) 1 mg DAILY PO Last administered on 04/04/17 08:29; Start 03/18/17 at 09:00 Latanoprost (Xalatan) 1 drop QHS OU Last administered on 04/04/17 19:41; Start 03/17/17 at 21:00 Levothyroxine Sodium (Synthroid) 50 mcg DAILY06 PO Last administered on 05:44; Start 03/18/17 at 06:00 Meclizine HCl (Antivert) 12.5 mg PRN TID PRN PO DIZZINESS; Start 03/17/17 at 14:30 Polyethylene Glycol (miraLAX) 17 gm PRN DAILY PRN PO CONSTIPATION; Start 03/17 at 14:30 Atorvastatin Calcium (Lipitor) 40 mg QHS PO Last administered on 04/04/17 19: 37; Start 03/17/17 at 21:00 Brimonidine Tartrate (Alphagan) 1 drop BID OU Last administered on 03/20/17 11:32; Start 03/17/17 at 21:00; Stop 03/20/17 at 14:28; Status DC Non-Formulary Medication 1 each DAILY PO ; Start 03/18/17 at 09:00; Stop 03/18 at 09:00; Status DC Calcium/Vitamin D (Oscal D 500mg/ 200uts) 1 tab BIDWMEALS PO Last administered on 04/04/17 16:57; Start 03/17/17 at 17:00 Non-Formulary Medication 1 patch TWICE WEEKLY TP ; Start 03/20/17 at 15:00; Stop 03/28/17 at 08:01; Status DC Bupropion HCl (Wellbutrin Xl) 300 mg DAILY PO Last administered on 03/19/17 08:03; Start 03/18/17 at 09:00; Stop 03/19/17 at 14:39; Status DC Memantine (Namenda) 10 mg BID PO Last administered on 04/04/17 19:38; Start 03/17/17 at 21:00 Quetiapine Fumarate (SEROquel) 12.5 mg PRN DAILY PRN PO ANXIETY / AGITATION; Start 03/17/17 at 14:30 Timolol Maleate (Timoptic 0.5% Oph) 1 drop BID OU Last administered on 19:40; Start 03/17/17 at 21:00 Bupropion HCl (Wellbutrin Xl) 150 mg DAILY PO Last administered on 03/26/17 07:50; Start 03/20/17 at 09:00; Stop 03/26/17 at 19:01; Status DC Divalproex Sodium (Depakote Sprinkles) 125 mg BID PO Last administered on 03/22 07:20; Start 03/19/17 at 21:00; Stop 03/22/17 at 15:18; Status DC Brimonidine Tartrate (Alphagan) 1 drop BID OU Last administered on 04/04/17 19 :40; Start 03/20/17 at 14:28 Potassium Chloride (Klor-Con) 40 meq 1X ONCE PO Last administered on 09:15; Start 03/21/17 at 08:15; Stop 03/21/17 at 08:16; Status DC Potassium Chloride (Klor-Con) 40 meq 1X ONCE PO Last administered on 09:17; Start 03/21/17 at 09:00; Stop 03/21/17 at 09:01; Status DC Potassium Chloride (Klor-Con) 40 meq 1X ONCE PO Last administered on 10:18; Start 03/21/17 at 10:00; Stop 03/21/17 at 10:01; Status DC Potassium Chloride (Klor-Con) 20 meq TID PO Last administered on 04/04/17 19: 37; Start 03/21/17 at 21:00 Divalproex Sodium (Depakote Sprinkles) 125 mg DAILY PO Last administered on 07:52; Start 03/23/17 at 09:00; Stop 03/23/17 at 16:23; Status DC Divalproex Sodium (Depakote Sprinkles) 250 mg HS PO Last administered on 19:17; Start 03/22/17 at 21:00; Stop 03/23/17 at 16:23; Status DC Olanzapine (ZyPREXA) 5 mg DAILY PO ; Start 03/23/17 at 09:00; Stop 03/23/17 at 09:00; Status DC Olanzapine (ZyPREXA) 5 mg DAILY@1200 PO Last administered on 03/27/17 12:05; Start 03/23/17 at 12:00; Stop 03/28/17 at 12:34; Status DC Divalproex Sodium (Depakote Sprinkles) 250 mg BID PO Last administered on 07:48; Start 03/23/17 at 21:00; Stop 03/28/17 at 12:34; Status DC Alendronate Sodium (Fosamax) 70 mg WEEKLYAC PO Last administered on 03/24/17 09:04; Start 03/24/17 at 07:00; Stop 03/31/17 at 07:51; Status DC Sertraline HCl (Zoloft) 50 mg DAILY PO Last administered on 04/02/17 08:31; Start 03/27/17 at 09:00; Stop 04/02/17 at 18:41; Status DC Dronabinol (Marinol) 2.5 mg DAILY07 PO Last administered on 03/29/17 05:26; Start 03/28/17 at 07:00; Stop 03/29/17 at 18:53; Status DC Dronabinol (Marinol) 2.5 mg STK-MED ONCE PO ; Start 03/28/17 at 06:31; Stop 03/28/17 at 06:32; Status DC Non-Formulary Medication 1 patch QMTH TP Last administered on 04/02/17 17:19; Start 03/29/17 at 16:00 Quetiapine Fumarate (SEROquel) 12.5 mg BID92 PO Last administered on 04/04/17 13:09; Start 03/28/17 at 14:00 Dronabinol (Marinol) 2.5 mg BIDWBKFT/MICAELA PO Last administered on 04/04/17 13: 08; Start 03/30/17 at 08:00 Mirtazapine (Remeron) 7.5 mg QHS PO Last administered on 03/29/17 20:33; Start 03/29/17 at 21:00; Stop 03/30/17 at 18:33; Status DC Mirtazapine (Remeron) 15 mg QHS PO Last administered on 04/04/17 19:37; Start 03/30/17 at 21:00 Trazodone HCl (Desyrel) 50 mg QHS PO Last administered on 04/04/17 19:37; Start 03/30/17 at 21:00 Trazodone HCl (Desyrel) 50 mg PRN QHS PRN PO INSOMNIA Last administered on 03/31 20:38; Start 03/30/17 at 18:45 Alendronate Sodium (Fosamax) 70 mg WEEKLYAC PO Last administered on 04/01/17 06:03; Start 04/01/17 at 07:00 Sertraline HCl (Zoloft) 75 mg DAILY PO Last administered on 04/04/17 08:27; Start 04/03/17 at 09:00 Active Scripts Active Reported Seroquel (Quetiapine Fumarate) 25 Mg Tablet 0.5 Tab PO DAILY PRN Miralax (Polyethylene Glycol 3350) 17 Gm Powd.pack 1 Packet PO DAILY PRN Namenda (Memantine Hcl) 10 Mg Tablet 1 Tab PO BID Meclizine Hcl 12.5 Mg Tablet 1 Tab PO TID PRN Synthroid (Levothyroxine Sodium) 50 Mcg Tablet 1 Tab PO DAILY06 Xalatan (Latanoprost) 2.5 Ml Drops 1 Drop EACHEYE QHS Folic Acid 1 Mg Tablet 1 Tab PO DAILY Vivelle-Dot (Estradiol) 1 Each Patch.tdsw 1 Patch TP TWICE WEEKLY Restasis (Cyclosporine) 1 Each Droperette 1 Drop EACHEYE BID Vitamin B-12 (Cyanocobalamin (Vitamin B-12)) 1,000 Mcg Tablet 1 Tab PO DAILY Viactiv Soft Chew Tablet (Ca Carbonate/Vitamin D3/Vit K) 1 Each Tab.chew 1 Each PO DAILY Caltrate+D3 Plus Mineral Minis (Ca Carb/D3/Mag Ox/Machine Joiner Cementer/Aaron/Zn) 1 Each Tablet 1 Each PO DAILY Wellbutrin Xl (Bupropion Hcl) 300 Mg Tab.er.24h 1 Tab PO DAILY Combigan Eye Drops (Brimonidine Tartrate/Timolol) 5 Ml Drops 1 Drop OU BID Lipitor (Atorvastatin Calcium) 40 Mg Tablet 1 Tab PO DAILY Alendronate Sodium 70 Mg Tablet 1 Tab PO WEEKLY Acyclovir 200 Mg Capsule 1 Cap PO BID PRN Diagnosis: Problems: (1) Anxiety disorder (2) Impulse control disorder (3) Dementia, vascular, with depression (4) Dementia, vascular, with delusions (5) Dementia in Alzheimer's disease with depression (6) Dementia in Alzheimer's disease with delusions AMARJIT RICH MD Apr 04, 2017 21:52
[2017-04-05] MEDS: LEVOTHYROXINE 50 MCG TABLET PO SCH (03:55)
--- NOTE | 2017-04-05 04:14 | PN ---
DATE: 04/03/2017 This is a late entry for 04/03/2017 and covers the elements not covered in my initial note of 04/03/2017. SUBJECTIVE: I met with the patient evening of 04/03/2017. The patient was somewhat delusional previous evening, withdrawn, picking at things in there and talking to someone who was not there around her, grabbing at things, felt the date was 06/29/2021. REVIEW OF SYSTEMS: Ambulation impaired, in a wheelchair. No CV, , pulmonary, eye, ENT system symptoms on review. Reliability poor. MENTAL STATUS EXAM: Oriented to herself. Insight, judgment, recent and remote memory, attention, concentration, fund of knowledge poor, consistent with her diagnosis. LABORATORY DATA: Reviewed. IMPRESSION: Major neurocognitive disorder, Alzheimer, vascular with depression, delusion, behavioral disturbance; anxiety disorder, unspecified; impulse control disorder, unspecified. PLAN: Continue current psychotropics, reviewed drug contraction, risk/benefit ratio favors no further change. AMARJIT RICH MD DR: SHANNON/deidra JOB#: [id number] / [id number]
[2017-04-05 06:51] VITALS: BP_SYST 124; BP_SYST 129; BP_DIAS 77; BP_DIAS 78
[2017-04-05] MEDS: TIMOLOL 0.5% OPHTH SOLUTION 5ML BOTTLE. OU SCH ×2 (08:52→19:36)
[2017-04-05] MEDS: BRIMONIDINE 0.2% OPHTH SOLUTION 5ML BOTTLE. OU SCH ×2 (08:52→19:36)
[2017-04-05] MEDS: DRONABINOL 2.5 MG CAPSULE PO SCH ×2 (08:53→14:53)
[2017-04-05] MEDS: cycloSPORINE 0.05% OPTH 1 DROP DROPERETTE OU SCH ×2 (08:53→19:34)
[2017-04-05] MEDS: POTASSIUM CHLORIDE 20 MEQ TABLET.ER. PO SCH ×3 (08:53→19:35)
[2017-04-05] MEDS: MEMANTINE 10 MG TABLET. PO SCH ×2 (08:53→19:34)
[2017-04-05] MEDS: CYANOCOBALAMIN (VITAMIN B-12) 1,000 MCG TABLET. PO SCH (08:53)
[2017-04-05] MEDS: SERTRALINE 50 MG TABLET. PO SCH (08:54)
[2017-04-05] MEDS: CALCIUM CARB/VIT D3 500/200 TABLET PO SCH ×2 (08:54→16:51)
[2017-04-05] MEDS: QUEtiapine 25 MG TABLET. PO SCH ×2 (08:54→14:54)
[2017-04-05] MEDS: FOLIC ACID 1 MG TABLET PO SCH (08:54)
[2017-04-05 15:41] VITALS: BP 109/68
[2017-04-05] MEDS: VIVELLE DOT TP SCH (16:51)
[2017-04-05] MEDS: ATORVASTATIN CALCIUM 20 MG TABLET PO SCH (19:34)
[2017-04-05] MEDS: MIRTAZAPINE 15 MG TABLET PO SCH (19:35)
[2017-04-05] MEDS: traZODone 50 MG TABLET. PO SCH (19:36)
[2017-04-05] MEDS: LATANOPROST 0.005% OPHTH SOLUTION 2.5ML BOTTLE. OU SCH (19:37)
[2017-04-06] MEDS: LEVOTHYROXINE 50 MCG TABLET PO SCH (05:56)
[2017-04-06 06:21] VITALS: BP 143/82
[2017-04-06] MEDS: TIMOLOL 0.5% OPHTH SOLUTION 5ML BOTTLE. OU SCH ×2 (08:25→19:43)
[2017-04-06] MEDS: cycloSPORINE 0.05% OPTH 1 DROP DROPERETTE OU SCH ×2 (08:25→19:42)
[2017-04-06] MEDS: BRIMONIDINE 0.2% OPHTH SOLUTION 5ML BOTTLE. OU SCH ×2 (08:25→19:43)
[2017-04-06] MEDS: CALCIUM CARB/VIT D3 500/200 TABLET PO SCH ×2 (08:26→17:35)
[2017-04-06] MEDS: QUEtiapine 25 MG TABLET. PO SCH ×2 (08:26→13:51)
[2017-04-06] MEDS: DRONABINOL 2.5 MG CAPSULE PO SCH ×2 (08:26→13:51)
[2017-04-06] MEDS: FOLIC ACID 1 MG TABLET PO SCH (08:26)
[2017-04-06] MEDS: CYANOCOBALAMIN (VITAMIN B-12) 1,000 MCG TABLET. PO SCH (08:26)
[2017-04-06] MEDS: MEMANTINE 10 MG TABLET. PO SCH ×2 (08:26→19:42)
[2017-04-06] MEDS: POTASSIUM CHLORIDE 20 MEQ TABLET.ER. PO SCH ×3 (08:26→19:42)
[2017-04-06] MEDS: SERTRALINE 50 MG TABLET. PO SCH (08:27)
[2017-04-06 16:43] VITALS: BP 132/96
[2017-04-06] MEDS: MIRTAZAPINE 15 MG TABLET PO SCH (19:42)
[2017-04-06] MEDS: traZODone 50 MG TABLET. PO SCH (19:42)
[2017-04-06] MEDS: ATORVASTATIN CALCIUM 20 MG TABLET PO SCH (19:42)
[2017-04-06] MEDS: LATANOPROST 0.005% OPHTH SOLUTION 2.5ML BOTTLE. OU SCH (19:43)
--- NOTE | 2017-04-06 20:16 | PDOC ---
Exam Note: Sourav Note: Please also refer to the separate dictated note~for this date of service dictated separately.~Patient seen individually. Discussed the patient with Nursing staff reviewed the chart.~Reviewed interim history and current functioning. Reviewed vital signs,~Labs/ Radiology~and current medications noted below. Continue current treatment with the changes noted in the dictated addendum note Assessment: Vital Signs: Vital Signs Date Time Temp Pulse Resp B/P (MAP) Pulse Ox O2 Delivery O2 Flow Rate FiO2 04/06/17 16:43 97.4 73 18 132/96 (108) 99 04/05/17 15:41 Room Air I&O Intake and Output 04/07/17 07:00 Intake Total 840 ml Balance 840 ml Intake Oral 840 ml Current Medications: Meds: Current Medications Olanzapine (ZyPREXA ZYDIS) 2.5 mg PRN Q2HR PRN PO PSYCHOSIS Last administered on 03/30/17 00:55; Start 03/17/17 at 07:45 Diphenhydramine HCl (Benadryl) 50 mg PRN Q6HRS PRN PO ANXIETY/AGITATION; Start 03/17/17 at 07:45; Stop 03/17/17 at 18:21; Status DC Acetaminophen (Tylenol) 650 mg PRN Q6HRS PRN PO PAIN / TEMP Last administered on 04/03/17 10:24; Start 03/17/17 at 09:15 Multi-Ingredient Ointment (Analgesic [place]) 1 gayle PRN QID PRN TP MUSCLE PAIN; Start 03/17/17 at 09:15 Al Hydroxide/Mg Hydroxide (Mylanta Plus Xs) 15 ml PRN AFTMEALHC PRN PO DYSPEPSIA; Start 03/17/17 at 09:15 Magnesium Hydroxide (Milk Of Magnesia) 2,400 mg PRN QHS PRN PO CONSTIPATION Last administered on 04/04/17 10:52; Start 03/17/17 at 09:15 Influenza Virus Vaccine Quadrival (Fluarix Quad [id number] Syringe) 0.5 ml ONCE ONCE VAX IM ; Start 03/18/17 at 09:00; Stop 03/18/17 at 09:02; Status DC Acyclovir (Zovirax) 200 mg PRN BID PRN PO blisters; Start 03/17/17 at 14:30 Alendronate Sodium (Fosamax) 70 mg WEEKLY PO ; Start 03/24/17 at 09:00; Stop 03/24/17 at 09:00; Status DC Cyanocobalamin (Vitamin B-12) 1,000 mcg DAILY PO Last administered on 08:26; Start 03/18/17 at 09:00 Cyclosporine (Restasis) 1 drop BID OU Last administered on 04/06/17 19:42; Start 03/17/17 at 21:00 Folic Acid (Folic Acid) 1 mg DAILY PO Last administered on 04/06/17 08:26; Start 03/18/17 at 09:00 Latanoprost (Xalatan) 1 drop QHS OU Last administered on 04/06/17 19:43; Start 03/17/17 at 21:00 Levothyroxine Sodium (Synthroid) 50 mcg DAILY06 PO Last administered on 05:56; Start 03/18/17 at 06:00 Meclizine HCl (Antivert) 12.5 mg PRN TID PRN PO DIZZINESS; Start 03/17/17 at 14:30 Polyethylene Glycol (miraLAX) 17 gm PRN DAILY PRN PO CONSTIPATION; Start 03/17 at 14:30 Atorvastatin Calcium (Lipitor) 40 mg QHS PO Last administered on 04/06/17 19: 42; Start 03/17/17 at 21:00 Brimonidine Tartrate (Alphagan) 1 drop BID OU Last administered on 03/20/17 11:32; Start 03/17/17 at 21:00; Stop 03/20/17 at 14:28; Status DC Non-Formulary Medication 1 each DAILY PO ; Start 03/18/17 at 09:00; Stop 03/18 at 09:00; Status DC Calcium/Vitamin D (Oscal D 500mg/ 200uts) 1 tab BIDWMEALS PO Last administered on 04/06/17 17:35; Start 03/17/17 at 17:00 Non-Formulary Medication 1 patch TWICE WEEKLY TP ; Start 03/20/17 at 15:00; Stop 03/28/17 at 08:01; Status DC Bupropion HCl (Wellbutrin Xl) 300 mg DAILY PO Last administered on 03/19/17 08:03; Start 03/18/17 at 09:00; Stop 03/19/17 at 14:39; Status DC Memantine (Namenda) 10 mg BID PO Last administered on 04/06/17 19:42; Start 03/17/17 at 21:00 Quetiapine Fumarate (SEROquel) 12.5 mg PRN DAILY PRN PO ANXIETY / AGITATION; Start 03/17/17 at 14:30 Timolol Maleate (Timoptic 0.5% Ophth) 1 drop BID OU Last administered on 19:43; Start 03/17/17 at 21:00 Bupropion HCl (Wellbutrin Xl) 150 mg DAILY PO Last administered on 03/26/17 07:50; Start 03/20/17 at 09:00; Stop 03/26/17 at 19:01; Status DC Divalproex Sodium (Depakote Sprinkles) 125 mg BID PO Last administered on 03/22 07:20; Start 03/19/17 at 21:00; Stop 03/22/17 at 15:18; Status DC Brimonidine Tartrate (Alphagan) 1 drop BID OU Last administered on 04/06/17 19:43; Start 03/20/17 at 14:28 Potassium Chloride (Klor-Con) 40 meq 1X ONCE PO Last administered on 09:15; Start 03/21/17 at 08:15; Stop 03/21/17 at 08:16; Status DC Potassium Chloride (Klor-Con) 40 meq 1X ONCE PO Last administered on 09:17; Start 03/21/17 at 09:00; Stop 03/21/17 at 09:01; Status DC Potassium Chloride (Klor-Con) 40 meq 1X ONCE PO Last administered on 10:18; Start 03/21/17 at 10:00; Stop 03/21/17 at 10:01; Status DC Potassium Chloride (Klor-Con) 20 meq TID PO Last administered on 04/06/17 19: 42; Start 03/21/17 at 21:00 Divalproex Sodium (Depakote Sprinkles) 125 mg DAILY PO Last administered on 07:52; Start 03/23/17 at 09:00; Stop 03/23/17 at 16:23; Status DC Divalproex Sodium (Depakote Sprinkles) 250 mg HS PO Last administered on 19:17; Start 03/22/17 at 21:00; Stop 03/23/17 at 16:23; Status DC Olanzapine (ZyPREXA) 5 mg DAILY PO ; Start 03/23/17 at 09:00; Stop 03/23/17 at 09:00; Status DC Olanzapine (ZyPREXA) 5 mg DAILY@1200 PO Last administered on 03/27/17 12:05; Start 03/23/17 at 12:00; Stop 03/28/17 at 12:34; Status DC Divalproex Sodium (Depakote Sprinkles) 250 mg BID PO Last administered on 07:48; Start 03/23/17 at 21:00; Stop 03/28/17 at 12:34; Status DC Alendronate Sodium (Fosamax) 70 mg WEEKLYAC PO Last administered on 03/24/17 09:04; Start 03/24/17 at 07:00; Stop 03/31/17 at 07:51; Status DC Sertraline HCl (Zoloft) 50 mg DAILY PO Last administered on 04/02/17 08:31; Start 03/27/17 at 09:00; Stop 04/02/17 at 18:41; Status DC Dronabinol (Marinol) 2.5 mg DAILY07 PO Last administered on 03/29/17 05:26; Start 03/28/17 at 07:00; Stop 03/29/17 at 18:53; Status DC Dronabinol (Marinol) 2.5 mg STK-MED ONCE PO ; Start 03/28/17 at 06:31; Stop 03/28/17 at 06:32; Status DC Non-Formulary Medication 1 patch QMTH TP Last administered on 04/05/17 16:51; Start 03/29/17 at 16:00 Quetiapine Fumarate (SEROquel) 12.5 mg BID92 PO Last administered on 13:51; Start 03/28/17 at 14:00 Dronabinol (Marinol) 2.5 mg BIDWBKFT/MICAELA PO Last administered on 04/06/17 13: 51; Start 03/30/17 at 08:00 Mirtazapine (Remeron) 7.5 mg QHS PO Last administered on 03/29/17 20:33; Start 03/29/17 at 21:00; Stop 03/30/17 at 18:33; Status DC Mirtazapine (Remeron) 15 mg QHS PO Last administered on 04/06/17 19:42; Start 03/30/17 at 21:00 Trazodone HCl (Desyrel) 50 mg QHS PO Last administered on 04/06/17 19:42; Start 03/30/17 at 21:00 Trazodone HCl (Desyrel) 50 mg PRN QHS PRN PO INSOMNIA Last administered on 03/31 20:38; Start 03/30/17 at 18:45 Alendronate Sodium (Fosamax) 70 mg WEEKLYAC PO Last administered on 04/01/17 06:03; Start 04/01/17 at 07:00 Sertraline HCl (Zoloft) 75 mg DAILY PO Last administered on 04/06/17 08:27; Start 04/03/17 at 09:00 Active Scripts Active Reported Seroquel (Quetiapine Fumarate) 25 Mg Tablet 0.5 Tab PO DAILY PRN Miralax (Polyethylene Glycol 3350) 17 Gm Powd.pack 1 Packet PO DAILY PRN Namenda (Memantine Hcl) 10 Mg Tablet 1 Tab PO BID Meclizine Hcl 12.5 Mg Tablet 1 Tab PO TID PRN Synthroid (Levothyroxine Sodium) 50 Mcg Tablet 1 Tab PO DAILY06 Xalatan (Latanoprost) 2.5 Ml Drops 1 Drop EACHEYE QHS Folic Acid 1 Mg Tablet 1 Tab PO DAILY Vivelle-Dot (Estradiol) 1 Each Patch.tdsw 1 Patch TP TWICE WEEKLY Restasis (Cyclosporine) 1 Each Droperette 1 Drop EACHEYE BID Vitamin B-12 (Cyanocobalamin (Vitamin B-12)) 1,000 Mcg Tablet 1 Tab PO DAILY Viactiv Soft Chew Tablet (Ca Carbonate/Vitamin D3/Vit K) 1 Each Tab.chew 1 Each PO DAILY Caltrate+D3 Plus Mineral Minis (Ca Carb/D3/Mag Ox/Covering Machine Tender/Aaron/Zn) 1 Each Tablet 1 Each PO DAILY Wellbutrin Xl (Bupropion Hcl) 300 Mg Tab.er.24h 1 Tab PO DAILY Combigan Eye Drops (Brimonidine Tartrate/Timolol) 5 Ml Drops 1 Drop OU BID Lipitor (Atorvastatin Calcium) 40 Mg Tablet 1 Tab PO DAILY Alendronate Sodium 70 Mg Tablet 1 Tab PO WEEKLY Acyclovir 200 Mg Capsule 1 Cap PO BID PRN I have reviewed the current psychotropics carefully including drug interactions. Risk benefit ratio favors no change other than as noted in my dictated progress note. Diagnosis: Problems: (1) Anxiety disorder (2) Impulse control disorder (3) Dementia, vascular, with depression (4) Dementia, vascular, with delusions (5) Dementia in Alzheimer's disease with depression (6) Dementia in Alzheimer's disease with delusions AMARJIT RICH MD Apr 06, 2017 20:16
[2017-04-07 06:10] VITALS: BP 105/68
[2017-04-07] MEDS: LEVOTHYROXINE 50 MCG TABLET PO SCH (06:32)
--- NOTE | 2017-04-07 07:23 | PN ---
DATE: 04/04/2017 This is a late entry for date of service 04/04/2017 and covers elements not covered in my initial note of 04/04/2017. The patient slept well previous evening, described as being acute "cute" per nursing report, compliant with medications, seemed to lead the exercise group more awake and interactive, seemed to be reaching out for things around her when there is nothing there. REVIEW OF SYSTEMS: Ambulation impaired, in a wheelchair. She does ambulate with assistance. No CV, , pulmonary, eye, ENT system symptoms on review. Reliability poor. MENTAL STATUS EXAM: Oriented to herself. Insight, judgment, recent and remote memory, attention, concentration, fund of knowledge poor, consistent with her diagnosis as mentioned above. PLAN: Continue psychotropics as mentioned in my initial note. MAN Maryam RICH MD DR: SHANNON/deidra JOB#: [id number] / [id number]
[2017-04-07] MEDS: MEMANTINE 10 MG TABLET. PO SCH ×2 (07:57→17:15)
[2017-04-07] MEDS: cycloSPORINE 0.05% OPTH 1 DROP DROPERETTE OU SCH ×2 (07:57→17:15)
[2017-04-07] MEDS: CYANOCOBALAMIN (VITAMIN B-12) 1,000 MCG TABLET. PO SCH (07:57)
[2017-04-07] MEDS: DRONABINOL 2.5 MG CAPSULE PO SCH ×2 (07:57→13:32)
[2017-04-07] MEDS: SERTRALINE 50 MG TABLET. PO SCH (07:57)
[2017-04-07] MEDS: QUEtiapine 25 MG TABLET. PO SCH ×2 (07:57→13:33)
[2017-04-07] MEDS: CALCIUM CARB/VIT D3 500/200 TABLET PO SCH ×2 (07:57→17:14)
[2017-04-07] MEDS: FOLIC ACID 1 MG TABLET PO SCH (07:57)
[2017-04-07] MEDS: POTASSIUM CHLORIDE 20 MEQ TABLET.ER. PO SCH ×3 (07:57→17:15)
[2017-04-07] MEDS: TIMOLOL 0.5% OPHTH SOLUTION 5ML BOTTLE. OU SCH ×2 (07:58→21:38)
[2017-04-07] MEDS: BRIMONIDINE 0.2% OPHTH SOLUTION 5ML BOTTLE. OU SCH ×2 (07:58→21:38)
--- NOTE | 2017-04-07 07:58 | PN ---
DATE: 04/05/2017 This is a late entry for date of service 04/05/2017 and covers elements not covered in my initial note of 04/05/2017. SUBJECTIVE: The patient was staffed at a treatment team meeting morning of 04/05/2017, seen individually in the evening, sleeping about 7-1/2 hours. Appetite 70%, still grabbing at things that are there, confused but less agitated appearing. Her visits her regularly per nursing report, gets quite fixated to make sure she has 2 pairs of socks she is wearing and has a bra at all times. Per nursing, social service report her may need placement himself. REVIEW OF SYSTEMS: Ambulation impaired, in a wheelchair. No CV, , pulmonary, eye, ENT system symptoms on review. Reliability poor. MENTAL STATUS EXAM: Oriented to herself. Insight, judgment, recent and remote memory, attention, concentration, fund of knowledge poor, consistent with her diagnosis mentioned in my initial note. PLAN: Continue psychotropics as mentioned my initial note. MAN Maryam RICH MD DR: SHANNON/deidra JOB#: [id number] / [id number]
[2017-04-07 16:15] VITALS: BP 122/74
[2017-04-07] MEDS: ATORVASTATIN CALCIUM 20 MG TABLET PO SCH (17:15)
[2017-04-07] MEDS: traZODone 50 MG TABLET. PO SCH (17:15)
[2017-04-07] MEDS: MIRTAZAPINE 15 MG TABLET PO SCH (17:15)
--- NOTE | 2017-04-07 20:04 | PDOC ---
Exam Note: Sourav Note: Please also refer to the separate dictated note~for this date of service dictated separately.~Patient seen individually. Discussed the patient with Nursing staff reviewed the chart.~Reviewed interim history and current functioning. Reviewed vital signs,~Labs/ Radiology~and current medications noted below. Continue current treatment with the changes noted in the dictated addendum note Assessment: Vital Signs: Vital Signs Date Time Temp Pulse Resp B/P (MAP) Pulse Ox O2 Delivery O2 Flow Rate FiO2 04/07/17 16:15 97.3 64 18 122/74 (90) 98 Room Air I&O Intake and Output 04/08/17 07:00 Intake Total 720 ml Balance 720 ml Intake Oral 720 ml # Bowel Movements 1 Current Medications: Meds: Current Medications Olanzapine (ZyPREXA ZYDIS) 2.5 mg PRN Q2HR PRN PO PSYCHOSIS Last administered on 03/30/17 00:55; Start 03/17/17 at 07:45 Diphenhydramine HCl (Benadryl) 50 mg PRN Q6HRS PRN PO ANXIETY/AGITATION; Start 03/17/17 at 07:45; Stop 03/17/17 at 18:21; Status DC Acetaminophen (Tylenol) 650 mg PRN Q6HRS PRN PO PAIN / TEMP Last administered on 04/03/17 10:24; Start 03/17/17 at 09:15 Multi-Ingredient Ointment (Analgesic [place]) 1 gayle PRN QID PRN TP MUSCLE PAIN; Start 03/17/17 at 09:15 Al Hydroxide/Mg Hydroxide (Mylanta Plus Xs) 15 ml PRN AFTMEALHC PRN PO DYSPEPSIA; Start 03/17/17 at 09:15 Magnesium Hydroxide (Milk Of Magnesia) 2,400 mg PRN QHS PRN PO CONSTIPATION Last administered on 04/04/17 10:52; Start 03/17/17 at 09:15 Influenza Virus Vaccine Quadrival (Fluarix Quad [id number] Syringe) 0.5 ml ONCE ONCE VAX IM ; Start 03/18/17 at 09:00; Stop 03/18/17 at 09:02; Status DC Acyclovir (Zovirax) 200 mg PRN BID PRN PO blisters; Start 03/17/17 at 14:30 Alendronate Sodium (Fosamax) 70 mg WEEKLY PO ; Start 03/24/17 at 09:00; Stop 03/24/17 at 09:00; Status DC Cyanocobalamin (Vitamin B-12) 1,000 mcg DAILY PO Last administered on 07:57; Start 03/18/17 at 09:00 Cyclosporine (Restasis) 1 drop BID OU Last administered on 04/07/17 17:15; Start 03/17/17 at 21:00 Folic Acid (Folic Acid) 1 mg DAILY PO Last administered on 04/07/17 07:57; Start 03/18/17 at 09:00 Latanoprost (Xalatan) 1 drop QHS OU Last administered on 04/06/17 19:43; Start 03/17/17 at 21:00 Levothyroxine Sodium (Synthroid) 50 mcg DAILY06 PO Last administered on 06:32; Start 03/18/17 at 06:00 Meclizine HCl (Antivert) 12.5 mg PRN TID PRN PO DIZZINESS; Start 03/17/17 at 14:30 Polyethylene Glycol (miraLAX) 17 gm PRN DAILY PRN PO CONSTIPATION; Start 03/17 at 14:30 Atorvastatin Calcium (Lipitor) 40 mg QHS PO Last administered on 04/07/17 17: 15; Start 03/17/17 at 21:00 Brimonidine Tartrate (Alphagan) 1 drop BID OU Last administered on 03/20/17 11:32; Start 03/17/17 at 21:00; Stop 03/20/17 at 14:28; Status DC Non-Formulary Medication 1 each DAILY PO ; Start 03/18/17 at 09:00; Stop 03/18 at 09:00; Status DC Calcium/Vitamin D (Oscal D 500mg/ 200uts) 1 tab BIDWMEALS PO Last administered on 04/07/17 17:14; Start 03/17/17 at 17:00 Non-Formulary Medication 1 patch TWICE WEEKLY TP ; Start 03/20/17 at 15:00; Stop 03/28/17 at 08:01; Status DC Bupropion HCl (Wellbutrin Xl) 300 mg DAILY PO Last administered on 03/19/17 08:03; Start 03/18/17 at 09:00; Stop 03/19/17 at 14:39; Status DC Memantine (Namenda) 10 mg BID PO Last administered on 04/07/17 17:15; Start 03/17/17 at 21:00 Quetiapine Fumarate (SEROquel) 12.5 mg PRN DAILY PRN PO ANXIETY / AGITATION; Start 03/17/17 at 14:30 Timolol Maleate (Timoptic 0.5% Ophth) 1 drop BID OU Last administered on 07:58; Start 03/17/17 at 21:00 Bupropion HCl (Wellbutrin Xl) 150 mg DAILY PO Last administered on 03/26/17 07:50; Start 03/20/17 at 09:00; Stop 03/26/17 at 19:01; Status DC Divalproex Sodium (Depakote Sprinkles) 125 mg BID PO Last administered on 03/22 07:20; Start 03/19/17 at 21:00; Stop 03/22/17 at 15:18; Status DC Brimonidine Tartrate (Alphagan) 1 drop BID OU Last administered on 04/07/17 07:58; Start 03/20/17 at 14:28 Potassium Chloride (Klor-Con) 40 meq 1X ONCE PO Last administered on 09:15; Start 03/21/17 at 08:15; Stop 03/21/17 at 08:16; Status DC Potassium Chloride (Klor-Con) 40 meq 1X ONCE PO Last administered on 09:17; Start 03/21/17 at 09:00; Stop 03/21/17 at 09:01; Status DC Potassium Chloride (Klor-Con) 40 meq 1X ONCE PO Last administered on 10:18; Start 03/21/17 at 10:00; Stop 03/21/17 at 10:01; Status DC Potassium Chloride (Klor-Con) 20 meq TID PO Last administered on 04/07/17 17: 15; Start 03/21/17 at 21:00 Divalproex Sodium (Depakote Sprinkles) 125 mg DAILY PO Last administered on 07:52; Start 03/23/17 at 09:00; Stop 03/23/17 at 16:23; Status DC Divalproex Sodium (Depakote Sprinkles) 250 mg HS PO Last administered on 19:17; Start 03/22/17 at 21:00; Stop 03/23/17 at 16:23; Status DC Olanzapine (ZyPREXA) 5 mg DAILY PO ; Start 03/23/17 at 09:00; Stop 03/23/17 at 09:00; Status DC Olanzapine (ZyPREXA) 5 mg DAILY@1200 PO Last administered on 03/27/17 12:05; Start 03/23/17 at 12:00; Stop 03/28/17 at 12:34; Status DC Divalproex Sodium (Depakote Sprinkles) 250 mg BID PO Last administered on 07:48; Start 03/23/17 at 21:00; Stop 03/28/17 at 12:34; Status DC Alendronate Sodium (Fosamax) 70 mg WEEKLYAC PO Last administered on 03/24/17 09:04; Start 03/24/17 at 07:00; Stop 03/31/17 at 07:51; Status DC Sertraline HCl (Zoloft) 50 mg DAILY PO Last administered on 04/02/17 08:31; Start 03/27/17 at 09:00; Stop 04/02/17 at 18:41; Status DC Dronabinol (Marinol) 2.5 mg DAILY07 PO Last administered on 03/29/17 05:26; Start 03/28/17 at 07:00; Stop 03/29/17 at 18:53; Status DC Dronabinol (Marinol) 2.5 mg STK-MED ONCE PO ; Start 03/28/17 at 06:31; Stop 03/28/17 at 06:32; Status DC Non-Formulary Medication 1 patch QMTH TP Last administered on 04/05/17 16:51; Start 03/29/17 at 16:00 Quetiapine Fumarate (SEROquel) 12.5 mg BID92 PO Last administered on 13:33; Start 03/28/17 at 14:00 Dronabinol (Marinol) 2.5 mg BIDWBKFT/MICAELA PO Last administered on 04/07/17 13: 32; Start 03/30/17 at 08:00 Mirtazapine (Remeron) 7.5 mg QHS PO Last administered on 03/29/17 20:33; Start 03/29/17 at 21:00; Stop 03/30/17 at 18:33; Status DC Mirtazapine (Remeron) 15 mg QHS PO Last administered on 04/07/17 17:15; Start 03/30/17 at 21:00 Trazodone HCl (Desyrel) 50 mg QHS PO Last administered on 04/07/17 17:15; Start 03/30/17 at 21:00 Trazodone HCl (Desyrel) 50 mg PRN QHS PRN PO INSOMNIA Last administered on 03/31 20:38; Start 03/30/17 at 18:45 Alendronate Sodium (Fosamax) 70 mg WEEKLYAC PO Last administered on 04/01/17 06:03; Start 04/01/17 at 07:00 Sertraline HCl (Zoloft) 75 mg DAILY PO Last administered on 04/07/17 07:57; Start 04/03/17 at 09:00 Active Scripts Active Reported Seroquel (Quetiapine Fumarate) 25 Mg Tablet 0.5 Tab PO DAILY PRN Miralax (Polyethylene Glycol 3350) 17 Gm Powd.pack 1 Packet PO DAILY PRN Namenda (Memantine Hcl) 10 Mg Tablet 1 Tab PO BID Meclizine Hcl 12.5 Mg Tablet 1 Tab PO TID PRN Synthroid (Levothyroxine Sodium) 50 Mcg Tablet 1 Tab PO DAILY06 Xalatan (Latanoprost) 2.5 Ml Drops 1 Drop EACHEYE QHS Folic Acid 1 Mg Tablet 1 Tab PO DAILY Vivelle-Dot (Estradiol) 1 Each Patch.tdsw 1 Patch TP TWICE WEEKLY Restasis (Cyclosporine) 1 Each Droperette 1 Drop EACHEYE BID Vitamin B-12 (Cyanocobalamin (Vitamin B-12)) 1,000 Mcg Tablet 1 Tab PO DAILY Viactiv Soft Chew Tablet (Ca Carbonate/Vitamin D3/Vit K) 1 Each Tab.chew 1 Each PO DAILY Caltrate+D3 Plus Mineral Minis (Ca Carb/D3/Mag Ox/Fuse Coiler/Aaron/Zn) 1 Each Tablet 1 Each PO DAILY Wellbutrin Xl (Bupropion Hcl) 300 Mg Tab.er.24h 1 Tab PO DAILY Combigan Eye Drops (Brimonidine Tartrate/Timolol) 5 Ml Drops 1 Drop OU BID Lipitor (Atorvastatin Calcium) 40 Mg Tablet 1 Tab PO DAILY Alendronate Sodium 70 Mg Tablet 1 Tab PO WEEKLY Acyclovir 200 Mg Capsule 1 Cap PO BID PRN I have reviewed the current psychotropics carefully including drug interactions. Risk benefit ratio favors no change other than as noted in my dictated progress note. Diagnosis: Problems: (1) Anxiety disorder (2) Impulse control disorder (3) Dementia, vascular, with depression (4) Dementia, vascular, with delusions (5) Dementia in Alzheimer's disease with depression (6) Dementia in Alzheimer's disease with delusions AMARJIT RICH MD Apr 07, 2017 20:04
[2017-04-07] MEDS: LATANOPROST 0.005% OPHTH SOLUTION 2.5ML BOTTLE. OU SCH (21:38)
[2017-04-08] MEDS: LEVOTHYROXINE 50 MCG TABLET PO SCH (06:34)
[2017-04-08 06:44] VITALS: BP 101/56
[2017-04-08] MEDS: CALCIUM CARB/VIT D3 500/200 TABLET PO SCH ×2 (07:43→18:39)
[2017-04-08] MEDS: POTASSIUM CHLORIDE 20 MEQ TABLET.ER. PO SCH ×3 (07:43→18:39)
[2017-04-08] MEDS: ALENDRONATE SODIUM 35 MG TABLET PO SCH (07:43)
[2017-04-08] MEDS: CYANOCOBALAMIN (VITAMIN B-12) 1,000 MCG TABLET. PO SCH (07:43)
[2017-04-08] MEDS: MEMANTINE 10 MG TABLET. PO SCH ×2 (07:43→18:39)
[2017-04-08] MEDS: cycloSPORINE 0.05% OPTH 1 DROP DROPERETTE OU SCH ×2 (07:43→18:39)
[2017-04-08] MEDS: SERTRALINE 50 MG TABLET. PO SCH (07:43)
[2017-04-08] MEDS: QUEtiapine 25 MG TABLET. PO SCH ×2 (07:44→14:00)
[2017-04-08] MEDS: DRONABINOL 2.5 MG CAPSULE PO SCH ×2 (07:44→12:00)
[2017-04-08] MEDS: FOLIC ACID 1 MG TABLET PO SCH (07:44)
[2017-04-08] MEDS: BRIMONIDINE 0.2% OPHTH SOLUTION 5ML BOTTLE. OU SCH ×2 (07:45→18:43)
[2017-04-08] MEDS: TIMOLOL 0.5% OPHTH SOLUTION 5ML BOTTLE. OU SCH ×2 (07:45→18:43)
[2017-04-08] MEDS: LATANOPROST 0.005% OPHTH SOLUTION 2.5ML BOTTLE. OU SCH (07:45)
--- NOTE | 2017-04-08 08:23 | PN ---
DATE: 04/06/2017 PSYCHIATRIC PROGRESS NOTE This is a late entry 04/06/2017, covers elements not covered in my initial note 04/06/2017. SUBJECTIVE: I met with the patient the evening of 04/06/2017. The patient is somewhat delusional, looking for her , redirectable, anxious. REVIEW OF SYSTEMS: Ambulation impaired, in wheelchair. No CV, , pulmonary, eye system symptoms on review. MENTAL STATUS EXAM: Oriented to herself. Insight, judgment, recent and remote memory, attention, concentration, fund of knowledge poor, consistent with her diagnoses mentioned in my initial note. PLAN: Continue current psychotropics. Review drug interactions. Risk/benefit ratio favors no further change from my initial note. MAN Maryam RICH MD DR: SHANNON/deidra JOB#: [id number] / [id number]
[2017-04-08 16:12] VITALS: BP 105/66
[2017-04-08] MEDS ORDERED: ACET325T9 PO (16:49)
[2017-04-08] MEDS ORDERED: DRON2.5C PO (16:50)
[2017-04-08] MEDS ORDERED: MAGN2400 PO (16:51)
[2017-04-08] MEDS ORDERED: MAG355OR12 PO (16:51)
[2017-04-08] MEDS ORDERED: MENT113G6 TP (16:52)
[2017-04-08] MEDS ORDERED: MIRT15TA3 PO (17:07)
[2017-04-08] MEDS ORDERED: OLAN5TAB5 PO (17:09)
[2017-04-08] MEDS ORDERED: POTA20TA4 PO (17:10)
[2017-04-08] MEDS ORDERED: QUET25TA5 PO (17:11)
[2017-04-08] MEDS ORDERED: SERT50TA PO (17:11)
[2017-04-08] MEDS ORDERED: TRAZ50TA15 PO ×2 (17:13→22:33)
[2017-04-08] MEDS: ATORVASTATIN CALCIUM 20 MG TABLET PO SCH (18:39)
[2017-04-08] MEDS: traZODone 50 MG TABLET. PO SCH (18:39)
[2017-04-08] MEDS: MIRTAZAPINE 15 MG TABLET PO SCH (18:39)
--- NOTE | 2017-04-08 20:12 | PDOC ---
Exam Note: Sourav Note: Please also refer to the separate dictated note~for this date of service dictated separately.~Patient seen individually. Discussed the patient with Nursing staff reviewed the chart.~Reviewed interim history and current functioning. Reviewed vital signs,~Labs/ Radiology~and current medications noted below. Continue current treatment with the changes noted in the dictated addendum note Assessment: Vital Signs: Vital Signs Date Time Temp Pulse Resp B/P (MAP) Pulse Ox O2 Delivery O2 Flow Rate FiO2 04/08/17 16:12 97.7 69 16 105/66 (79) 100 Room Air I&O Intake and Output 04/09/17 07:00 Intake Total 1080 ml Balance 1080 ml Intake Oral 1080 ml Current Medications: Meds: Current Medications Olanzapine (ZyPREXA ZYDIS) 2.5 mg PRN Q2HR PRN PO PSYCHOSIS Last administered on 03/30/17 00:55; Start 03/17/17 at 07:45 Diphenhydramine HCl (Benadryl) 50 mg PRN Q6HRS PRN PO ANXIETY/AGITATION; Start 03/17/17 at 07:45; Stop 03/17/17 at 18:21; Status DC Acetaminophen (Tylenol) 650 mg PRN Q6HRS PRN PO PAIN / TEMP Last administered on 04/03/17 10:24; Start 03/17/17 at 09:15 Multi-Ingredient Ointment (Analgesic [place]) 1 gayle PRN QID PRN TP MUSCLE PAIN; Start 03/17/17 at 09:15 Al Hydroxide/Mg Hydroxide (Mylanta Plus Xs) 15 ml PRN AFTMEALHC PRN PO DYSPEPSIA; Start 03/17/17 at 09:15 Magnesium Hydroxide (Milk Of Magnesia) 2,400 mg PRN QHS PRN PO CONSTIPATION Last administered on 04/04/17 10:52; Start 03/17/17 at 09:15 Influenza Virus Vaccine Quadrival (Fluarix Quad [id number] Syringe) 0.5 ml ONCE ONCE VAX IM ; Start 03/18/17 at 09:00; Stop 03/18/17 at 09:02; Status DC Acyclovir (Zovirax) 200 mg PRN BID PRN PO blisters; Start 03/17/17 at 14:30 Alendronate Sodium (Fosamax) 70 mg WEEKLY PO ; Start 03/24/17 at 09:00; Stop 03/24/17 at 09:00; Status DC Cyanocobalamin (Vitamin B-12) 1,000 mcg DAILY PO Last administered on 07:43; Start 03/18/17 at 09:00 Cyclosporine (Restasis) 1 drop BID OU Last administered on 04/08/17 18:39; Start 03/17/17 at 21:00 Folic Acid (Folic Acid) 1 mg DAILY PO Last administered on 04/08/17 07:44; Start 03/18/17 at 09:00 Latanoprost (Xalatan) 1 drop QHS OU Last administered on 04/08/17 07:45; Start 03/17/17 at 21:00 Levothyroxine Sodium (Synthroid) 50 mcg DAILY06 PO Last administered on 06:34; Start 03/18/17 at 06:00 Meclizine HCl (Antivert) 12.5 mg PRN TID PRN PO DIZZINESS; Start 03/17/17 at 14:30 Polyethylene Glycol (miraLAX) 17 gm PRN DAILY PRN PO CONSTIPATION; Start 03/17 at 14:30 Atorvastatin Calcium (Lipitor) 40 mg QHS PO Last administered on 04/08/17 18: 39; Start 03/17/17 at 21:00 Brimonidine Tartrate (Alphagan) 1 drop BID OU Last administered on 03/20/17 11:32; Start 03/17/17 at 21:00; Stop 03/20/17 at 14:28; Status DC Non-Formulary Medication 1 each DAILY PO ; Start 03/18/17 at 09:00; Stop 03/18 at 09:00; Status DC Calcium/Vitamin D (Oscal D 500mg/ 200uts) 1 tab BIDWMEALS PO Last administered on 04/08/17 18:39; Start 03/17/17 at 17:00 Non-Formulary Medication 1 patch TWICE WEEKLY TP ; Start 03/20/17 at 15:00; Stop 03/28/17 at 08:01; Status DC Bupropion HCl (Wellbutrin Xl) 300 mg DAILY PO Last administered on 03/19/17 08:03; Start 03/18/17 at 09:00; Stop 03/19/17 at 14:39; Status DC Memantine (Namenda) 10 mg BID PO Last administered on 04/08/17 18:39; Start 03/17/17 at 21:00 Quetiapine Fumarate (SEROquel) 12.5 mg PRN DAILY PRN PO ANXIETY / AGITATION; Start 03/17/17 at 14:30 Timolol Maleate (Timoptic 0.5% Ophth) 1 drop BID OU Last administered on 18:43; Start 03/17/17 at 21:00 Bupropion HCl (Wellbutrin Xl) 150 mg DAILY PO Last administered on 03/26/17 07:50; Start 03/20/17 at 09:00; Stop 03/26/17 at 19:01; Status DC Divalproex Sodium (Depakote Sprinkles) 125 mg BID PO Last administered on 03/22 07:20; Start 03/19/17 at 21:00; Stop 03/22/17 at 15:18; Status DC Brimonidine Tartrate (Alphagan) 1 drop BID OU Last administered on 04/08/17 18:43; Start 03/20/17 at 14:28 Potassium Chloride (Klor-Con) 40 meq 1X ONCE PO Last administered on 09:15; Start 03/21/17 at 08:15; Stop 03/21/17 at 08:16; Status DC Potassium Chloride (Klor-Con) 40 meq 1X ONCE PO Last administered on 09:17; Start 03/21/17 at 09:00; Stop 03/21/17 at 09:01; Status DC Potassium Chloride (Klor-Con) 40 meq 1X ONCE PO Last administered on 10:18; Start 03/21/17 at 10:00; Stop 03/21/17 at 10:01; Status DC Potassium Chloride (Klor-Con) 20 meq TID PO Last administered on 04/08/17 18: 39; Start 03/21/17 at 21:00 Divalproex Sodium (Depakote Sprinkles) 125 mg DAILY PO Last administered on 07:52; Start 03/23/17 at 09:00; Stop 03/23/17 at 16:23; Status DC Divalproex Sodium (Depakote Sprinkles) 250 mg HS PO Last administered on 19:17; Start 03/22/17 at 21:00; Stop 03/23/17 at 16:23; Status DC Olanzapine (ZyPREXA) 5 mg DAILY PO ; Start 03/23/17 at 09:00; Stop 03/23/17 at 09:00; Status DC Olanzapine (ZyPREXA) 5 mg DAILY@1200 PO Last administered on 03/27/17 12:05; Start 03/23/17 at 12:00; Stop 03/28/17 at 12:34; Status DC Divalproex Sodium (Depakote Sprinkles) 250 mg BID PO Last administered on 07:48; Start 03/23/17 at 21:00; Stop 03/28/17 at 12:34; Status DC Alendronate Sodium (Fosamax) 70 mg WEEKLYAC PO Last administered on 03/24/17 09:04; Start 03/24/17 at 07:00; Stop 03/31/17 at 07:51; Status DC Sertraline HCl (Zoloft) 50 mg DAILY PO Last administered on 04/02/17 08:31; Start 03/27/17 at 09:00; Stop 04/02/17 at 18:41; Status DC Dronabinol (Marinol) 2.5 mg DAILY07 PO Last administered on 03/29/17 05:26; Start 03/28/17 at 07:00; Stop 03/29/17 at 18:53; Status DC Dronabinol (Marinol) 2.5 mg STK-MED ONCE PO ; Start 03/28/17 at 06:31; Stop 03/28/17 at 06:32; Status DC Non-Formulary Medication 1 patch QMTH TP Last administered on 04/05/17 16:51; Start 03/29/17 at 16:00 Quetiapine Fumarate (SEROquel) 12.5 mg BID92 PO Last administered on 14:00; Start 03/28/17 at 14:00 Dronabinol (Marinol) 2.5 mg BIDWBKFT/MICAELA PO Last administered on 04/08/17 12: 00; Start 03/30/17 at 08:00 Mirtazapine (Remeron) 7.5 mg QHS PO Last administered on 03/29/17 20:33; Start 03/29/17 at 21:00; Stop 03/30/17 at 18:33; Status DC Mirtazapine (Remeron) 15 mg QHS PO Last administered on 04/08/17 18:39; Start 03/30/17 at 21:00 Trazodone HCl (Desyrel) 50 mg QHS PO Last administered on 04/08/17 18:39; Start 03/30/17 at 21:00 Trazodone HCl (Desyrel) 50 mg PRN QHS PRN PO INSOMNIA Last administered on 03/31 20:38; Start 03/30/17 at 18:45 Alendronate Sodium (Fosamax) 70 mg WEEKLYAC PO Last administered on 04/08/17 07:43; Start 04/01/17 at 07:00 Sertraline HCl (Zoloft) 75 mg DAILY PO Last administered on 04/08/17 07:43; Start 04/03/17 at 09:00 Polyethylene Glycol (miraLAX) 17 gm DAILY PO ; Start 04/09/17 at 09:00 Active Scripts Active Reported Trazodone Hcl 50 Mg Tablet 50 Mg PO HS Zoloft (Sertraline Hcl) 50 Mg Tablet 75 Mg PO DAILY Seroquel (Quetiapine Fumarate) 25 Mg Tablet 0.5 Tab PO PRN DAILY PRN Klor-Con M20 (Potassium Chloride) 20 Meq Tab.er.prt 20 Meq PO TID Zyprexa Zydis (Olanzapine) 5 Mg Tab.rapdis 2.5 Mg PO PRN Q2HR PRN Mirtazapine 15 Mg Tablet 15 Mg PO HS Bengay (Menthol) 113 Gm Gel..gram. 1 Applic TP PRN QID PRN Milk Of Magnesia (Magnesium Hydroxide) 2,400 Mg/10 Ml Oral.susp 2,400 Mg PO PRN QHS PRN Maalox Maximum Strength Susp (Mag Hydrox/Al Hydrox/Simeth) 355 Ml Oral.susp 15 Ml PO PRN AFTMEALHC PRN Marinol (Dronabinol) 2.5 Mg Capsule 2.5 Mg PO BIDACBL Tylenol (Acetaminophen) 325 Mg Tablet 650 Mg PO PRN Q6HRS PRN Seroquel (Quetiapine Fumarate) 25 Mg Tablet 0.5 Tab PO DAILY PRN Miralax (Polyethylene Glycol 3350) 17 Gm Powd.pack 1 Packet PO DAILY PRN Namenda (Memantine Hcl) 10 Mg Tablet 1 Tab PO BID Meclizine Hcl 12.5 Mg Tablet 1 Tab PO TID PRN Synthroid (Levothyroxine Sodium) 50 Mcg Tablet 1 Tab PO DAILY06 Xalatan (Latanoprost) 2.5 Ml Drops 1 Drop EACHEYE QHS Folic Acid 1 Mg Tablet 1 Tab PO DAILY Vivelle-Dot (Estradiol) 1 Each Patch.tdsw 1 Patch TP TWICE WEEKLY Restasis (Cyclosporine) 1 Each Droperette 1 Drop EACHEYE BID Vitamin B-12 (Cyanocobalamin (Vitamin B-12)) 1,000 Mcg Tablet 1 Tab PO DAILY Viactiv Soft Chew Tablet (Ca Carbonate/Vitamin D3/Vit K) 1 Each Tab.chew 1 Each PO DAILY Caltrate+D3 Plus Mineral Minis (Ca Carb/D3/Mag Ox/Daylight Driller/Aaron/Zn) 1 Each Tablet 1 Each PO DAILY Wellbutrin Xl (Bupropion Hcl) 300 Mg Tab.er.24h 1 Tab PO DAILY Combigan Eye Drops (Brimonidine Tartrate/Timolol) 5 Ml Drops 1 Drop OU BID Lipitor (Atorvastatin Calcium) 40 Mg Tablet 1 Tab PO DAILY Alendronate Sodium 70 Mg Tablet 1 Tab PO WEEKLY Acyclovir 200 Mg Capsule 1 Cap PO BID PRN I have reviewed the current psychotropics carefully including drug interactions. Risk benefit ratio favors no change other than as noted in my dictated progress note. Diagnosis: Problems: (1) Anxiety disorder (2) Impulse control disorder (3) Dementia, vascular, with depression (4) Dementia, vascular, with delusions (5) Dementia in Alzheimer's disease with depression (6) Dementia in Alzheimer's disease with delusions AMARJIT RICH MD Apr 08, 2017 20:12
[2017-04-08] MEDS ORDERED: MAGN400O7 PO (22:27)
[2017-04-09 06:05] VITALS: BP 107/51
[2017-04-09] MEDS: LEVOTHYROXINE 50 MCG TABLET PO SCH (06:25)
[2017-04-09] MEDS: POTASSIUM CHLORIDE 20 MEQ TABLET.ER. PO SCH (08:07)
[2017-04-09] MEDS: QUEtiapine 25 MG TABLET. PO SCH (08:07)
[2017-04-09] MEDS: DRONABINOL 2.5 MG CAPSULE PO SCH (08:07)
[2017-04-09] MEDS: CALCIUM CARB/VIT D3 500/200 TABLET PO SCH (08:08)
[2017-04-09] MEDS: SERTRALINE 50 MG TABLET. PO SCH (08:08)
[2017-04-09] MEDS: CYANOCOBALAMIN (VITAMIN B-12) 1,000 MCG TABLET. PO SCH (08:09)
[2017-04-09] MEDS: MEMANTINE 10 MG TABLET. PO SCH (08:09)
[2017-04-09] MEDS: FOLIC ACID 1 MG TABLET PO SCH (08:09)
[2017-04-09] MEDS: cycloSPORINE 0.05% OPTH 1 DROP DROPERETTE OU SCH (08:09)
[2017-04-09] MEDS: BRIMONIDINE 0.2% OPHTH SOLUTION 5ML BOTTLE. OU SCH (08:12)
[2017-04-09] MEDS: TIMOLOL 0.5% OPHTH SOLUTION 5ML BOTTLE. OU SCH (08:12)
[2017-04-09] MEDS ORDERED: POLYETHYLENE GLYCOL 3350 17 GM PACKET. PO SCH (09:00)
--- NOTE | 2017-04-10 04:57 | PN ---
DATE: 04/07/2017 PSYCHIATRIC PROGRESS NOTE This late entry 04/07/2017, covers elements not covered in my initial note 04/07/2017. I met with the patient in the evening of 04/07/2017. The patient remains confused, but recognizes her , little anxious at times, not aggressive, disruptive. REVIEW OF SYSTEMS: No CV, , pulmonary, eye, ENT system symptoms on review. Gait unsteady, in wheelchair. MENTAL STATUS EXAM: Oriented to herself. Insight, judgment, recent and remote memory, attention, concentration, fund of knowledge poor, consistent with her diagnosis, pleasant, verbal, disorganized as I met with her. IMPRESSION: Unchanged from my initial note. PLAN: No change from my initial note. MAN Maryam RICH MD DR: SHANNON/deidra JOB#: [id number] / [id number]
--- NOTE | 2017-04-10 08:10 | PN ---
DATE: 04/08/2017 PSYCHIATRIC PROGRESS NOTE This late entry 04/08/2017 covers elements, not covered in my initial note of 04/08/2017. I met with the patient evening of 04/08/2017. The patient remains confused, but otherwise pleasant, smiling. Did not seem to remember that her visited her earlier in the day, as I met with her late in the evening of 04/08/2017. REVIEW OF SYSTEMS: Ambulation impaired, in wheelchair. No CV, , pulmonary, eye, ENT system symptoms on review. Reliability poor. MENTAL STATUS EXAM: Oriented to herself. Insight, judgment, recent and remote memory, attention, concentration, fund of knowledge poor, consistent with her diagnosis mentioned in my initial note. PLAN: Continue psychotropics mentioned in my initial note. Make further adjustments as clinically indicated. MAN Maryam RICH MD DR: SHANNON/deidra JOB#: [id number] / [id number]
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
== END 2017-04-09 10:30 | DRG 884 ==
LOC: GEROPSY 06:45
PROVIDERS: ADMIT Psychiatry & Neurology Psychiatry; ATTEND Psychiatry & Neurology Psychiatry
DX: F01.51 Vascular dementia, unspecified severity, with behavioral disturbance (principal); F02.81 Dementia in other diseases classified elsewhere, unspecified severity, with behavioral disturbance; G30.9 Alzheimer's disease, unspecified; F22 Delusional disorders; F32.9 Major depressive disorder, single episode, unspecified; F41.9 Anxiety disorder, unspecified; F63.9 Impulse disorder, unspecified; G47.00 Insomnia, unspecified; H40.9 Unspecified glaucoma; Z66 Do not resuscitate; Z79.899 Other long term (current) drug therapy; Z81.8 Family history of other mental and behavioral disorders; Z95.0 Presence of cardiac pacemaker; Z88.8 Allergy status to other drugs, medicaments and biological substances
CPT/HCPCS: 36415; 71020; 73521; 80053; 80061; 80164; 81001; 82306; 82607; 82947; 83036; 83540; 83550; 83735; 84132; 84436; 84443; 84480; 85025; 85027; 85651; 86140; 86592; 86593; 93005; Q0167